=== PATIENT | male | born 1940 | race Caucasian/White ===

== ENCOUNTER 2018-03-21 00:22 | Emergency (ER) | payer MEDICARE, OTHER ==
[~2018-03-21] VITALS: Ht 172.7 cm; Wt 74.8 kg
[~2018-03-21 00:22] MED LIST: ALEN70 PO; ANTACID OTC PO; ASCO500 PO; ASPI81CH; ATOR10 PO; Advil200 M1 PO; Antivert25 MG PO; CALCIUM CITRATE PO; CEPH500 PO; CHOL10002 PO; CLARITIN10 MG PO; CLIN300 PO; CLOB.05TC TOP; CLOB.05TO TP; CYAN100 PO; CYAN1000 PO; Calcium + Vita1 EACH PO; DIAZ5 PO; DIPH50 PO; DOCU100 PO; ERGO50000 PO; FINA5 PO; FISH1000 PO; Flovent Diskus50 MCG IH; HYDACE5 PO; IBUP400 PO; INSUASPI; INSUASPI SC; INSUASPI SUBQ; IRON PO; LAVAP17G PO; LORA10 PO; LORA10ER PO; MAGOXI400 PO; MORP15ER PO; MSM; MULVITMIND PO; MULVITMINF PO; OMEPRAZOLE MAGN20 MG PO; RAMI2.5 PO; SUPER B COMPLEX; TAMS.4ER PO; TOCO400 PO; VITAMIN E400 UNI1 PO; ZINC; ZINC15 PO
[2018-03-21 01:47] LABS: Source, Urine Clean Catch
[2018-03-21 01:52] LABS: Bilirubin, Urine Neg (Neg); Blood, Urine 5+ (Neg); Glucose Qualitative, Urine Neg (Neg); Ketones, Urine Neg (Neg); Leukocyte Esterase, Urine Neg (Neg); Nitrite, Urine Neg (Neg); Protein, Urine 4+ (Neg); Specific Gravity, Urine 1.015 (1.003-1.022); Urobilinogen, Urine NORM (Normal)
[2018-03-21 02:00] LABS: Appearance, Urine Bloody (Clear); Color, Urine Red (P-Yellow)
[2018-03-21 02:08] LABS: Bacteria Not Seen /hpf; Red Blood Cells, Urine TNTC /hpf (0-2); Squamous Epithelial Cells Rare /hpf (Few); White Blood Cells, Urine Rare /hpf (0-5)
[2018-03-21 02:34] LABS: BASOPHILS ABSOLUTE AUTO 0.05 K/mm3 (0.00-0.23); BASOPHILS PERCENT AUTO 1 % (0-2); EOSINOPHILS ABSOLUTE AUTO 0.24 K/mm3 (0.00-0.68); EOSINOPHILS PERCENT AUTO 4 % (0-6); Hematocrit 31.8 % (37.0-53.0); Hemoglobin 10.1 g/dL (13.5-17.5); IMMATURE GRAN ABSOLUTE AUTO 0.01 K/mm3 (0.00-0.10); IMMATURE GRAN PERCENT AUTO 0 % (0-1); LYMPHOCYTES ABSOLUTE AUTO 1.11 K/mm3 (0.84-5.20); LYMPHOCYTES PERCENT AUTO 19 % (21-46); MONOCYTES ABSOLUTE AUTO 0.72 K/mm3 (0.16-1.47); MONOCYTES PERCENT AUTO 13 % (4-13); Mean Corpuscular HGB 30.6 pg (26.0-34.0); Mean Corpuscular HGB Conc 31.8 g/dL (31.5-36.5); Mean Corpuscular Volume 96 fL (80-100); Mean Platelet Volume 11.7 fL (9.1-12.4); NEUTROPHILS PERCENT AUTO 63 % (41-73); Platelet Count 231 K/mm3 (150-400); RDW Coefficient Variation 14.1 % (11.7-14.2); RDW Standard Deviation 49.2 fL (35.1-46.3); White Blood Cell Count 5.73 K/mm3 (4.00-11.30)
[2018-03-21 02:45] LABS: Calcium, Ionized (POC) 1.14 mmol/L (1.10-1.46); Chloride (POC) 95 mmol/L (98-108); Creatinine (POC) 0.8 mg/dL (0.8-1.3); Glucose (ISTAT POC) 231 mg/dL (70-99); Hemoglobin (POC) 10.5 g/dL (13.5-17.5); Sodium (POC) 132 mmol/L (135-148); Total CO2 (POC) 25 mmol/L (21-32)
== END 2018-03-21 03:09 | disposition home or self-care (01) ==
LOC: ER 00:22
PROVIDERS: Emergency Medicine
DX: R31.9 Hematuria, unspecified (principal); Z88.8 Allergy status to other drugs, medicaments and biological substances; Z79.899 Other long term (current) drug therapy; Z79.4 Long term (current) use of insulin; E11.9 Type 2 diabetes mellitus without complications; I10 Essential (primary) hypertension; Z87.891 Personal history of nicotine dependence
CPT/HCPCS: 36415; 80047; 81001; 82947; 85014; 85025; 93005; 93010; 99283-25

== ENCOUNTER 2018-12-25 15:10 | Inpatient (IN) | payer MEDICARE, OTHER ==
[~2018-12-25] VITALS: Ht 177.8 cm; Wt 81.8 kg
[2018-12-25 15:55] LABS: BASOPHILS ABSOLUTE AUTO 0.04 K/mm3 (0.00-0.23); BASOPHILS PERCENT AUTO 0 % (0-2); EOSINOPHILS PERCENT AUTO 0 % (0-6); Hematocrit 33.8 % (37.0-53.0); Hemoglobin 11.2 g/dL (13.5-17.5); IMMATURE GRAN ABSOLUTE AUTO 0.11 K/mm3 (0.00-0.10); IMMATURE GRAN PERCENT AUTO 1 % (0-1); LYMPHOCYTES ABSOLUTE AUTO 0.33 K/mm3 (0.84-5.20); LYMPHOCYTES PERCENT AUTO 2 % (21-46); MONOCYTES ABSOLUTE AUTO 1.58 K/mm3 (0.16-1.47); MONOCYTES PERCENT AUTO 10 % (4-13); Mean Corpuscular HGB 30.4 pg (26.0-34.0); Mean Corpuscular HGB Conc 33.1 g/dL (31.5-36.5); Mean Corpuscular Volume 92 fL (80-100); Mean Platelet Volume 10.4 fL (9.1-12.4); NEUTROPHILS ABSOLUTE AUTO 13.87 K/mm3 (1.96-9.15); NEUTROPHILS PERCENT AUTO 87 % (41-73); Platelet Count 228 K/mm3 (150-400); RDW Coefficient Variation 13.3 % (11.7-14.2); RDW Standard Deviation 45.6 fL (35.1-46.3); Red Blood Cell Count 3.69 M/mm3 (4.30-5.90); White Blood Cell Count 15.93 K/mm3 (4.00-11.30)
[2018-12-25 16:11] LABS: Bun/Creatinine Ratio 18.8 (12.0-20.0); Calcium, Blood 8.3 mg/dL (8.5-10.1); Creatinine, Blood 1.28 mg/dL (0.60-1.20); Potassium, Blood 3.8 mmol/L (3.5-5.5)
[2018-12-25 16:21] LABS: Troponin I 6.33 ng/mL (0.000-0.040)
[2018-12-25] MEDS ORDERED: Ramipril10 MG PO (17:26)
[2018-12-25] MEDS ORDERED: TAMS.4ER PO (17:26)
[2018-12-25] MEDS ORDERED: NOVOLOG FL100 UNIT/1 SC (17:26)
[2018-12-25] MEDS ORDERED: POTA10T PO (17:27)
[2018-12-25] MEDS ORDERED: FUROSEMIDE20 MG PO (17:27)
[2018-12-25] MEDS ORDERED: FINA5 PO (17:27)
[2018-12-25 17:37] LABS: International Normalized Ratio 1.22; Prothrombin Time Results 12.7 Sec (9.7-11.5)
--- NOTE | 2018-12-25 19:10 | NUR ---
CBG 166; PATIENT FINDS STAFF IN ANOTHER ROOM DOING BEDSIDE REPORT TO SHOW HOME CBG METER READING OF 166; PATIENT HAS PAIN PUMP; NO CBG ORDERS.
[2018-12-25] MEDS ORDERED: DIAZ5 PO (20:28)
[2018-12-25 22:46] LABS: Troponin I 6.58 ng/mL (0.000-0.040)
--- NOTE | 2018-12-25 23:12 | NUR ---
ASSUMED CARE OF PATIENT AT APPROXIMATELY 1900 WHEN PATIENT ARRIVED TO UNIT VIA STRETCHER FROM ED. MAX TRANSFER FROM ED TO PCU STRETCHER; PATIENT HAS SCOLOSIS AND WEAK; LEANS BACK WHEN UP. PATIENT ALERT AND ORIENTED TO SELF, EVENT AND FAMILY; ABLE TO READ DATE OFF WHITE BOARD; CONFUSED AT TIMES. PATIENT ARRIVED TO UNIT WITH ATTENDS AND TWO PAIRS OF PANTS ON; ATTENDS SOAKED FROM URINE. PATIENT DENIES CP/PRESSURE, NUMBNESS, TINGLING, DIZZINESS AND NAUSEA. WAS BEDSIDE WITH PATIENT DURING TRANSFER; WALKS INTO ANOTHER PATIENT'S ROOM TO REPORT THAT PATIENT TOOK HIS BLOOD SUGAR WITH HOME CBG MACHINE; READING OF 166; INSULIN PUMP. PATIENT UNABLE TO TELL WHEN HE NEEDS TO URINATE. ABRASION ON LEFT ELBOW; RECENT FALL AT HOME. ADMISSION COMPLETE. S/S PLACED. BLOOD CULTURES DRAW. HEPARIN GTT; TROPONIN CRITICALLY HIGH. PATIENT CURRENTLY RESTING IN BED; CALL LIGHT IN REACH; BED IN LOWEST POSISTION; BED ALARM ON; WILL CONTINUE TO MONITOR AND ASSESS UNTIL END OF SHIFT.
--- NOTE | 2018-12-25 23:59 | NUR ---
TEMP OF 103; CALLED DR. HAGEN TO REPORT TEMPERATURE BUT NO PRN MEDICATIONS FOR FEVER; ORDERS RECIEVED.
[2018-12-26 03:51] LABS: Hematocrit 31.5 % (37.0-53.0); Hemoglobin 10.4 g/dL (13.5-17.5); Mean Corpuscular HGB 30.5 pg (26.0-34.0); Mean Corpuscular Volume 92 fL (80-100); Mean Platelet Volume 10.5 fL (9.1-12.4); Platelet Count 202 K/mm3 (150-400); RDW Coefficient Variation 13.6 % (11.7-14.2); RDW Standard Deviation 45.9 fL (35.1-46.3); Red Blood Cell Count 3.41 M/mm3 (4.30-5.90); White Blood Cell Count 16.34 K/mm3 (4.00-11.30)
[2018-12-26 04:18] LABS: Alanine Aminotransfer (ALT/SGP 21 U/L (12-78); Albumin, Blood 2.3 g/dL (3.4-5.0); Albumin/Globulin Ratio 0.7 (0.8-1.8); Alk Phos 69 U/L (50-136); Anion Gap 11 mmol/L (6-16); Aspartate Aminotrans (AST/SGOT 38 U/L (12-37); Bilirubin, Total 0.7 mg/dL (0.1-1.0); Blood Urea Nitrogen 27 mg/dL (8-24); CO2, Blood 22 mmol/L (21-32); Calcium, Blood 7.6 mg/dL (8.5-10.1); Chloride, Blood 101 mmol/L (98-108); Globulin, Blood 3.2 g/dL (2.2-4.0); Glomerular Filtration Rate 48 (60-); Glucose, Blood 207 mg/dL (70-99); Magnesium, Blood 1.6 mg/dL (1.6-2.4); Phosphorus, Blood 2.7 mg/dL (2.5-4.9); Potassium, Blood 3.7 mmol/L (3.5-5.5); Sodium, Blood 134 mmol/L (136-145); Total Protein, Blood 5.5 g/dL (6.4-8.2)
[2018-12-26 04:25] LABS: BAND PERCENT MAN 21 % (0-8); BASOPHILS PERCENT MAN 0 % (0-2); EOSINOPHILS PERCENT MAN 0 % (0-6); LYMPHOCYTES ABSOLUTE MAN 0.49 K/mm3 (0.84-5.20); LYMPHOCYTES PERCENT MAN 3 % (21-46); MONOCYTES ABSOLUTE MAN 0.49 K/mm3 (0.16-1.47); MONOCYTES PERCENT MAN 3 % (4-13); NEUTROPHILS ABSOLUTE MAN 15.35 K/mm3 (1.96-9.15); SEG NEUTROPHILS PERCENT MAN 73 % (41-73); TOTAL CELLS COUNTED 100
[2018-12-26 04:26] LABS: Thyroid Stimulating Hormone 0.708 uIU/mL (0.360-4.800)
[2018-12-26 04:32] LABS: C-REACTIVE PROTEIN, EXT RANGE >19.000 mg/dL (0.000-0.300)
--- NOTE | 2018-12-26 05:16 | NUR ---
PATIENT MORE ALERT AND ORIENTED THIS MORNING; TALKING WITH STAFF AND ASKING QUESTIONS. PATIENT SLEPT ABOUT EIGHT HOURS LAST NIGHT. TROPONIN TRENDING DOWN; HEPARIN GTT INCREASED PER ORDER. PATIENT TOOK ONLY CBG THIS AM AND REPORTS 219. WILL CONTINUE TO MONITOR AND ASSESS UNTIL END OF SHIFT.
[2018-12-26 07:21] LABS: Source, Urine Clean Catch
[2018-12-26 07:23] LABS: Appearance, Urine Hazy (Clear); Bilirubin, Urine Neg (Neg); Blood, Urine 4+ (Neg); Color, Urine Yellow (P-Yellow); Glucose Qualitative, Urine 1+ (Neg); Ketones, Urine 3+ (Neg); Leukocyte Esterase, Urine 3+ (Neg); Nitrite, Urine Pos (Neg); Protein, Urine 3+ (Neg); Urobilinogen, Urine NORM (Normal)
[2018-12-26 07:32] LABS: White Blood Cells, Urine 50-100 /hpf (0-5)
[2018-12-26 07:33] LABS: Bacteria Many /hpf; Squamous Epithelial Cells Rare /hpf (Few)
[2018-12-26 17:27] LABS: Glucose, Blood 540 mg/dL (70-99)
--- NOTE | 2018-12-26 18:09 | NUR ---
NOTIFIED DR VILLALTA OF BLOOD GLUCOSE OF 540, NEW ORDERS TO CONTINUE WITH INSULING PUMP SLIDING SCALE AND INCREASE BASIL RATE BY 0.1 UNITS/HR. THIS RN AT BEDSIDE, PT APPEARS CONFUSED ON HOW TO USE INSULIN PUMP, APPEARS TO BE CYCLING THROUGH THE PAGES, AND IS UNABLE TO EXPLAIN WHAT SECTIONS HE IS ON AND HOW TO USE PUMP. WHEN THIS RN AND BIN RN ASKED TO SEE PUMP, PT DENIES ACCESS. PT STATES HE DOES THIS HIMSELF. NOTIFED DR VILLALTA, NEW ORDERS TO CONTINUE INSULIN PUMP BASIL RATE IS, INSTRUCT THE PATIENT TO NOT USE THE INSULIN PUMP SLIDING SCALE AND TO START HUMALOG ACHS AT MEDIUM SLIDING SCALE. EDUCATED AND INSTRUCTED PT NOT TO PROGRAM THE PUMP FOR SLIDING SCALE. WILL ADMINISTER INSULIN PER ORDERS. WILL CONTINUE TO MONITOR.
--- NOTE | 2018-12-26 18:14 | NUR ---
SHIFT SUMMARY PT A&Ox2, CONFUSED AT TIMES. PT RESTING IN BED, ASSIST WITH REPOSITIONING. PT REPORTS PAIN IN BACK/BUTTOM AND WAIST, MEDICATED PER EMAR. PT DENIES SON, CHEST PAIN, NUMB/TINGLING AND [place] DURING SHIFT. PT RECEIVING HEPARIN GTT, TITRATED PER ORDERS. PT RECEIVING IV ANTIBIOTICS. PT HAS INSULIN PUMP, CBG PATCH NOT WORKING, NEW ORDERS FOR BLOOD GLUCOSE ACHS PER DR VILLALTA. LUNCH CBG 434, NOTIFIED DR VILLALTA, NO NEW ORDERS. DINNER CBG LAB CHECKED AT 540, NOTFIED, SEE PREVIOUS NOTE, RN TO START PROVIDING INSULIN PER ORDERS. VSS. NO OTHER ACUTE CHAGNES NOTED DURING SHIFT. WILL CONTINUE TO MONTIOR UNTIL REPORT GIVEN TO ONCOMING RN.
[2018-12-26 21:20] LABS: Glucose, Blood 558 mg/dL (70-99)
--- NOTE | 2018-12-26 21:59 | NUR ---
ASSUMED CARE OF PATIENT AT APPROXIMATELY 1900 FROM NIRMAL Smith RN. PATIENT HAS SCOLOSIS AND WEAK; LEANS BACK WHEN UP; HAS BEEN ON BEDREST. PATIENT ALERT AND ORIENTED TO SELF, EVENT AND FAMILY; ABLE TO READ DATE OFF WHITE BOARD; CONFUSED OFF AND ON. PATIENT EDUCATED NOT TO USE INSULIN PUMP; DOCOTOR ORDERED SC INSULIN AC/HS. CBG TONIGHT WAS 558; CALLED DR. POSADAS AFTER GIVING 12UNITS PER MED S/S; ORDERS RECIEVED FOR 6 ADDITIONAL UNITS AND CBG 2 HOURS AFTER. PATIENT FEBRILE AT START OF SHIFT; MEDICATED PER EMAR; FEVER TRENDING DOWN. INCONTINENT AT TIMES. PATIENT DENIES CP/PRESSURE, NUMBNESS, TINGLING, DIZZINESS AND NAUSEA. CALLED FOR UPDATE; PATIENT GAVE VERBAL CONSENT FOR THIS RN TO TALK TO HIS MIKE. PATIENT HAS INSULIN PUMP. ABRASION ON LEFT ELBOW; RECENT FALL AT HOME. NSR ON TELE; OXYGEN SATURATION ABOVE 90% ON ROOM AIR. HEPARIN GTT. PATIENT CURRENTLY RESTING IN BED; CALL LIGHT IN REACH; BED IN LOWEST POSISTION; BED ALARM ON; WILL CONTINUE TO MONITOR AND ASSESS UNTIL END OF SHIFT.
--- NOTE | 2018-12-27 00:17 | NUR ---
CBG 462; CALLED DR. HAGEN TO REPORT CBG ABOVE 400; ORDERS FOR CBG AT 0300.
[2018-12-27 04:42] LABS: BASOPHILS ABSOLUTE AUTO 0.03 K/mm3 (0.00-0.23); BASOPHILS PERCENT AUTO 0 % (0-2); Hemoglobin 10.7 g/dL (13.5-17.5); LYMPHOCYTES ABSOLUTE AUTO 0.23 K/mm3 (0.84-5.20); LYMPHOCYTES PERCENT AUTO 1 % (21-46); MONOCYTES ABSOLUTE AUTO 1.09 K/mm3 (0.16-1.47); MONOCYTES PERCENT AUTO 6 % (4-13); Mean Corpuscular HGB 30.2 pg (26.0-34.0); Mean Corpuscular HGB Conc 33.4 g/dL (31.5-36.5); Mean Corpuscular Volume 90 fL (80-100); Mean Platelet Volume 11.3 fL (9.1-12.4); Platelet Count 193 K/mm3 (150-400); RDW Coefficient Variation 13.4 % (11.7-14.2); Red Blood Cell Count 3.54 M/mm3 (4.30-5.90); White Blood Cell Count 17.13 K/mm3 (4.00-11.30)
[2018-12-27 04:43] LABS: EOSINOPHILS PERCENT AUTO 0 % (0-6); IMMATURE GRAN ABSOLUTE AUTO 0.11 K/mm3 (0.00-0.10); IMMATURE GRAN PERCENT AUTO 1 % (0-1); NEUTROPHILS ABSOLUTE AUTO 15.67 K/mm3 (1.96-9.15); NEUTROPHILS PERCENT AUTO 92 % (41-73)
[2018-12-27 05:09] LABS: Albumin, Blood 2.1 g/dL (3.4-5.0); Albumin/Globulin Ratio 0.6 (0.8-1.8); Bilirubin, Total 0.5 mg/dL (0.1-1.0); Bun/Creatinine Ratio 24.9 (12.0-20.0); Calcium, Blood 7.8 mg/dL (8.5-10.1); Creatinine, Blood 1.77 mg/dL (0.60-1.20); Globulin, Blood 3.5 g/dL (2.2-4.0); Potassium, Blood 4.1 mmol/L (3.5-5.5); Total Protein, Blood 5.6 g/dL (6.4-8.2)
--- NOTE | 2018-12-27 06:42 | NUR ---
PATIENT SLEPT ABOUT SIX HOURS LAST NIGHT. CBG CAME BACK OVER 500; CALLED DR. HAGEN; 12 UNITS HUMALOG; NPO; RECHECK CBG AT 0745. FEBRILE; TYLENOL GIVEN; GOOD RESULTS; OTHER VSS. WILL CONTINUE TO MONITOR AND ASSESS UNTIL END OF SHIFT.
[2018-12-27 08:01] LABS: Glucose, Blood 518 mg/dL (70-99)
--- NOTE | 2018-12-27 11:02 | NUR ---
ECHOCARDIOGRAM COMPLETED
--- NOTE | 2018-12-27 12:53 | NUR ---
UPDATE CALLED DR. PONCE ABOUT CBG OF 479. NEW ORDERS FOR 5 UNITS HUMALOG NOW. WILL CONTINUE TO MONITOR CLOSELY.
--- NOTE | 2018-12-27 12:55 | NUR ---
UPDATE CALLED DR. PONCE ABOUT CBG OF 518. NEW ORDERS PROVIDED.
[2018-12-27 15:32] LABS: Bun/Creatinine Ratio 24.4 (12.0-20.0); Calcium, Blood 7.8 mg/dL (8.5-10.1); Creatinine, Blood 1.68 mg/dL (0.60-1.20); Potassium, Blood 3.6 mmol/L (3.5-5.5)
--- NOTE | 2018-12-27 17:25 | NUR ---
SHIFT SUMMARY PT ALERT TO SELF, , AND FOLLOWING DIRECTIONS. PT FORGETS WHERE HE IS AND WHY HE CAME IN. PT SLOW TO RESPOND AND DOES NOT ALWAYS ANSWER QUESTIONS APPROPRIATELY. VS STABLE. HR NSR. PT COMPLAINED OF PAIN IN HIS BACK THAT WAS RELEIVED WITH MEDICATION ADMINISTRATION. PT REPOSITIONED Q2H. PT WEAK IN ALL EXTREMITIES. CBG HAVE IMPROVED THIS EVENING. PT HAS HAD POOR APPETITE. WILL CONTINUE TO MONITOR AND REPORT TO ONCOMING RN. CALL LIGHT IN REACH.
--- NOTE | 2018-12-27 21:30 | NUR ---
UPDATE CALLED AND WANTED TO SPEAK WITH RN. PATIENT GAVE VERBAL CONSENT FOR RN TO SPEAK WITH ON THE PHONE. VERY UPSET ABOUT PATIENT'S DIAGNOSIS AND CURRENT PLAN OF TREATMENT. HAD SEVERAL QUESTIONS AND RN PROVIDED ANSWERS. KEPT ASKING THE SAME QUESTIONS OVER AND OVER AND STATING THAT SHE WAS GETTING FRUSTRATED THAT NO ONE WOULD GIVE HER ANSWERS EVEN THOUGH RN WAS PROVIDING ANSWERS TO THE WIFES QUESTION DURING THAT SAME PHONE CALL. DID NOT APPEAR TO LISTEN TO ANSWERS AND SHE KEPT TALKING OVER RN AND CONTINUED TO ASK THE SAME QUESTIONS OVER AND OVER EVEN AFTER THEY HAD BEEN ANSWERED MANY TIMES. AFTER APPROX 15 MINUTES CONTINUED TO BE VERY UPSET. CHARGE NURSE MANOLO MARTINEZ TOOK OVER SPEAKING WITH AND CONTINUED TO PROVIDE THE ANSWERS TO THE WIFES QUESTIONS WHICH SHE CONTINUED TO ASK OVER AND OVER AGAIN. 'S CALL WAS THEN SENT TO THE THE NURSING MIXER DRIVER CRISELDA MURILLO. WHO ALSO SPOKE WITH . CONTINUED TO APPEAR TO HAVE THE SAME QUESTIONS EVEN THOUGH THEY HAD BEEN ANSWERED MANY TIMES BY SEVERAL DIFFERENT STAFF MEMBERS. NURSING MIXER DRIVER CHIDI SAID THAT SHE OR THE SECURITY OFFICE WOULD TAKE ANY FURTHER CALLS FROM TO ALLOW STAFF TO PROVIDE PATIENT CARE.
--- NOTE | 2018-12-28 04:37 | NUR ---
UPDATE DR HAGEN NOTIFIED THAT PATIENT HAS NOT VOIDED YET TONIGHT AND THAT THE BLADDER SCAN RESULTS WERE APPROX 450 ML'S. PATIENT STATES HE DOES NOT FEEL HE NEEDS TO VOID AT THIS TIME AND DENIES ANY ABD PAIN AT THIS TIME. AN ORDER TO STRAIGHT CATH FOR BLADDER SCAN OF GREATER THAN 700 ML'S WAS OBTAINED. WILL CONTINUE TO MONITOR.
--- NOTE | 2018-12-28 07:58 | NUR ---
SHIFT SUMMARY PATIENT PLEASENT AND COOPERATIVE THROUGHOUT THE NIGHT. PATIENT KEPT ASKING WHAT TIME IT WAS OR WHAT DAY IT WAS IN, "THE OUTSIDE WORLD." SOMETIMES PATIENT WOULD ASK WHAT TIME IT WAS AND HE WOULD THEN ASK, "IS IT THE SAME TIME IN THE OUTSIDE WORLD?" PATIENT APPEARED TO NAP ON AND OFF THROUGHOUT THE NIGHT. PATIENT TURNED Q2H THROUGHOUT THE NIGHT AND UPON REQUEST. PATIENT HAD A LARGE INCONTENENT VOID THIS AM. HEPARIN GTT RUNNING PER ORDERS. IV ABX GIVEN PER ORDERS. PATIENT CURRENTLY RESTING IN BED. REPORT GIVEN TO ONCOMING RN.
[2018-12-28 09:01] LABS: BASOPHILS ABSOLUTE AUTO 0.05 K/mm3 (0.00-0.23); BASOPHILS PERCENT AUTO 0 % (0-2); EOSINOPHILS ABSOLUTE AUTO 0.06 K/mm3 (0.00-0.68); EOSINOPHILS PERCENT AUTO 0 % (0-6); Hematocrit 31.6 % (37.0-53.0); Hemoglobin 10.5 g/dL (13.5-17.5); IMMATURE GRAN ABSOLUTE AUTO 0.12 K/mm3 (0.00-0.10); IMMATURE GRAN PERCENT AUTO 1 % (0-1); LYMPHOCYTES PERCENT AUTO 3 % (21-46); MONOCYTES ABSOLUTE AUTO 1.49 K/mm3 (0.16-1.47); MONOCYTES PERCENT AUTO 8 % (4-13); Mean Corpuscular HGB 29.8 pg (26.0-34.0); Mean Corpuscular HGB Conc 33.2 g/dL (31.5-36.5); Mean Corpuscular Volume 90 fL (80-100); Mean Platelet Volume 11.4 fL (9.1-12.4); NEUTROPHILS ABSOLUTE AUTO 15.45 K/mm3 (1.96-9.15); NEUTROPHILS PERCENT AUTO 88 % (41-73); Platelet Count 184 K/mm3 (150-400); RDW Standard Deviation 46.1 fL (35.1-46.3); Red Blood Cell Count 3.52 M/mm3 (4.30-5.90); White Blood Cell Count 17.67 K/mm3 (4.00-11.30)
[2018-12-28 09:21] LABS: Albumin, Blood 1.8 g/dL (3.4-5.0); Albumin/Globulin Ratio 0.5 (0.8-1.8); Bilirubin, Total 0.2 mg/dL (0.1-1.0); Calcium, Blood 7.6 mg/dL (8.5-10.1); Creatinine, Blood 1.84 mg/dL (0.60-1.20); Globulin, Blood 3.6 g/dL (2.2-4.0); Potassium, Blood 3.8 mmol/L (3.5-5.5); Total Protein, Blood 5.4 g/dL (6.4-8.2)
--- NOTE | 2018-12-28 14:22 | NUR ---
PT WORKING WITH PHYSICAL THERAPY. THIS RN CALLED IN TO ROOM. PER PHYSICAL THERAPY PT FELL BACK IN BED AND STARTED TO VOMIT. PT ALERT. VS STABLE. PER TELEMETRY PT HAS ONE RUN OF VTACH SEE TELEMETRY PRINT OUT IN FRONT OF CHART. DR. JIMENEZ CALLED AND NOTIFIED OF CHANGES. DR. JIMENEZ LOOKS AT TELEMETRY STRIPS AND NEW ORDERS. VS TAKEN AND STABLE. PT DENIES ANY CHEST PAIN. WILL CONTINUE TO MONITOR CLOSELY.
--- NOTE | 2018-12-28 17:50 | NUR ---
SHIFT SUMMARY PT ALERT AND ORIENTED. PT SLOW TO RESPOND. VS STABLE. HR NSR AT THIS TIME. CBG HAVE BEEN IMPROVED THIS SHIFT. PT COMPLAINED OF DISCOMFORT IN HIS NECK THAT WAS RELIEVED WITH REPOSITIONING. PT REPOSITIONED Q2H. PT HAS BEEN INCONTINENT OF URINE. WILL CONTINUE TO MONITOR AND REPORT TO ONCOMING RN. CALL LIGHT IN REACH.
--- NOTE | 2018-12-29 00:05 | NUR ---
CBG SPOT CHECK / PT ANXIOUS PT ANXIOUS ABOUT BLOOD SUGAR MONITORING IN THE HOSPITAL STATING "I CHECK MY BLOOD SUGAR ABOUT 12-15 TIMES A DAY." PT CONCERNED BLOOD SUGAR IS NOT BEING CHECKED ENOUGH. CBG MONITORING ORDERS/PROCESS REVIEWED W/ PT & ASSURANCE OF AVAILABLE SPOT CHECKS IF PT FEELS SYMPTOMATIC. PT DENIES SYMPTOMS AT THIS TIME, BUT IS ANXIOUS NOT KNOWING WHAT CBG MIGHT BE. CBG CHECK DONE W/ RESULT OF 105. PT NOW WORRIED CBG WILL CONTINUE TO GET LOWER. PT EDUCATED TO NOTIFY STAFF IF ONSET OF SYMPTOMS OCCUR. WILL CONTINUE TO MONITOR AND PROVIDE CARE.
[2018-12-29 04:09] LABS: BASOPHILS ABSOLUTE AUTO 0.02 K/mm3 (0.00-0.23); BASOPHILS PERCENT AUTO 0 % (0-2); EOSINOPHILS PERCENT AUTO 1 % (0-6); Hematocrit 28.6 % (37.0-53.0); Hemoglobin 9.8 g/dL (13.5-17.5); IMMATURE GRAN PERCENT AUTO 1 % (0-1); LYMPHOCYTES ABSOLUTE AUTO 0.48 K/mm3 (0.84-5.20); LYMPHOCYTES PERCENT AUTO 4 % (21-46); MONOCYTES ABSOLUTE AUTO 1.29 K/mm3 (0.16-1.47); MONOCYTES PERCENT AUTO 10 % (4-13); Mean Corpuscular HGB 29.9 pg (26.0-34.0); Mean Corpuscular HGB Conc 34.3 g/dL (31.5-36.5); Mean Platelet Volume 11.2 fL (9.1-12.4); NEUTROPHILS ABSOLUTE AUTO 11.13 K/mm3 (1.96-9.15); NEUTROPHILS PERCENT AUTO 85 % (41-73); Platelet Count 218 K/mm3 (150-400); RDW Coefficient Variation 13.8 % (11.7-14.2); RDW Standard Deviation 43.8 fL (35.1-46.3); Red Blood Cell Count 3.28 M/mm3 (4.30-5.90); White Blood Cell Count 13.12 K/mm3 (4.00-11.30)
[2018-12-29 04:10] LABS: Mean Corpuscular Volume 87 fL (80-100)
[2018-12-29 04:31] LABS: Bun/Creatinine Ratio 27.2 (12.0-20.0); Calcium, Blood 7.7 mg/dL (8.5-10.1); Creatinine, Blood 1.62 mg/dL (0.60-1.20); Potassium, Blood 3.8 mmol/L (3.5-5.5)
--- NOTE | 2018-12-29 05:15 | NUR ---
CBG TREATMENT CALL TO MD HAGEN @ APPROX 0500 THIS AM TO REPORT CBG 78 THIS AM WHILE PT NPO AWAITING PROCEDURE @ APPROX 0730 TODAY. INSTRUCTIONS FROM MD HAGEN TO GIVE 1 AMP D50, SEE EMAR, AND RECHECK CBG Q1H NEEDED. PT ASYMPTOMATIC. WILL CONTINUE TO MONITOR AND PROVIDE CARE.
--- NOTE | 2018-12-29 06:04 | NUR ---
SHIFT SUMMARY PT A&O TO SELF AND FOLLOWING INSTRUCTIONS. PT SLOW TO RESPOND, DOES NOT ANSWER ALL Q'S AND ANSWERS SOME Q'S INCOMPLETELY. PT FORGETFUL, NEEDING INFORMATION REPEATED. PT CBG W/ DOWNWARD TREND THIS SHIFT, NPO SINCE MIDNIGHT FOR PROCEDURE THIS AM. PT ASYMPTOMATIC, CBG 78 THIS AM, GIVEN 1 AMP D50 THIS AM PER MD ORDERS, W/ F/U CBG OF 148 THIS AM. PT INCONTINENT, WEARING ATTENDS. PT STATES BEING AWARE OF WET ATTENDS, BUT DOES NOT NOTIFY STAFF WHEN EPISODES OF INCONTINENCE OCCUR. PT SELF-REMOVAL OF PIV THIS AM W/ NO ANSWER TO HOW OR WHY IT WAS REMOVED. PT REPEATITIVELY SAYING "I'M READY TO GO" W/OUT EXPLANATION OF WHERE DESPITE MULT STAFF ATTEMPTS FOR PT ELABORATION. PT VERY STIFF AND UNABLE TO ASSIST W/ REPOSITIONING UPON CARE ASSUMPTION. PT NOW PROVIDING MINIMAL ASSISTANCE W/ Q2H REPOSITIONING BY 2 STAFF MEMBERS. PT IN BED W/ CALL LIGHT IN REACH. WILL CONTINUE TO MONITOR AND PROVIDE CARE UNTIL REPORT OFF TO DAY SHIFT RN.
--- NOTE | 2018-12-29 08:05 | NUR ---
DR CARBONE AND DR JIMENEZ WERE IN ROOM AT 0730 FOR LIVAN. PT TOLERATED LIVAN WELL.
--- NOTE | 2018-12-29 08:55 | NUR ---
LIVAN COMPLETE. PT RECOVERED LIVAN COMPLETE AT 0750. PT VITALS STABLE. PT TOTRATED OF O2. SATING IN 90S ON RA. PT AWAKE & ALERT. PT SWALLOWING WELL. CLEAR LIQUID DIET STARTED. WILL CONTINUE TO MONITOR.
--- NOTE | 2018-12-29 16:31 | NUR ---
SHIFT SUMMARY PT HAS LIVAN COMPLETED THIS SHIFT. RESTING PORTION OF STRESS TEST TO BE COMPLETED TOMORROW. PT TO BE NPO AFTER BREAKFAST. INJECTION SCHEDULED FOR 1430 & PICTURES AT 1600. INCULIN SLIDING SCALES DECREASED. AC TO AARON. HS TO LSS. NO OTHER CHANGES IN ASSESSMENT AT THIS TIME. VSS. WILL CONTINUE TO MONITOR UNTIL TURNOVER IS COMPLETE.
[2018-12-30 04:28] LABS: BASOPHILS ABSOLUTE AUTO 0.03 K/mm3 (0.00-0.23); BASOPHILS PERCENT AUTO 0 % (0-2); EOSINOPHILS PERCENT AUTO 1 % (0-6); Hematocrit 25.3 % (37.0-53.0); Hemoglobin 8.8 g/dL (13.5-17.5); IMMATURE GRAN ABSOLUTE AUTO 0.07 K/mm3 (0.00-0.10); IMMATURE GRAN PERCENT AUTO 1 % (0-1); LYMPHOCYTES PERCENT AUTO 5 % (21-46); MONOCYTES ABSOLUTE AUTO 0.92 K/mm3 (0.16-1.47); MONOCYTES PERCENT AUTO 10 % (4-13); Mean Corpuscular HGB 29.9 pg (26.0-34.0); Mean Corpuscular HGB Conc 34.8 g/dL (31.5-36.5); Mean Corpuscular Volume 86 fL (80-100); Mean Platelet Volume 10.7 fL (9.1-12.4); NEUTROPHILS PERCENT AUTO 82 % (41-73); Platelet Count 240 K/mm3 (150-400); RDW Coefficient Variation 13.8 % (11.7-14.2); RDW Standard Deviation 43.4 fL (35.1-46.3); Red Blood Cell Count 2.94 M/mm3 (4.30-5.90); White Blood Cell Count 9.22 K/mm3 (4.00-11.30)
[2018-12-30 04:45] LABS: Albumin, Blood 1.7 g/dL (3.4-5.0); Albumin/Globulin Ratio 0.5 (0.8-1.8); Bilirubin, Total 0.3 mg/dL (0.1-1.0); Bun/Creatinine Ratio 24.7 (12.0-20.0); C-REACTIVE PROTEIN, EXT RANGE 13.5 mg/dL (0.000-0.300); Calcium, Blood 7.7 mg/dL (8.5-10.1); Creatinine, Blood 1.54 mg/dL (0.60-1.20); Globulin, Blood 3.1 g/dL (2.2-4.0); Potassium, Blood 3.5 mmol/L (3.5-5.5); Total Protein, Blood 4.8 g/dL (6.4-8.2)
--- NOTE | 2018-12-30 06:30 | NUR ---
SHIFT SUMMARY PT A&O X4, CALM AND COOPERATIVE. VSS. MONITOR SHOWS NSR, HR 60-70'S. SPO2 > 92% ON RA. PT W/ EPISODES OF CONTINENCE AND INCONTINENCE, WEARING ATTENDS AND USING URINAL. CBG STABLE. WILL CONTINUE TO MONITOR AND PROVIDE CARE UNTIL REPORT OFF TO DAY SHIFT RN.
--- NOTE | 2018-12-30 08:00 | NUR ---
REPORT FROM KARLEE ABURTO. ASSUMED PT CARE. PT SITTING UP IN CHAIR WITH BREAKFAST AT THIS TIME. CALL LIGHT IN REACH. T AB ALARM IN PLACE.
--- NOTE | 2018-12-30 09:10 | NUR ---
PT MEDICATED PER EMAR WITH SCHEDULED MEDS. PT SITTING UP IN CHAIR, WATER AND APPLEJUICE PROVIDED.
--- NOTE | 2018-12-30 12:31 | NUR ---
PT SITTING UP IN CHAIR EATING LUNCH. FAMILY AT BEDSIDE.
--- NOTE | 2018-12-30 15:00 | NUR ---
ASSUMED CARE OF PT. ASSUMED CARE OF PT FROM CRISELDA GREGORY. NO QUESTIONS FROM THIS RN NEEDED. PT IN STABLE CONDITION WITH VSS. PT UP IN BED EATING CHEESE & MILK. FIRST PART STRESS TEST COMPLETED. SCANS TO BE COMPLETED AT 1600. PT AMBULATING WELL WITH THERAPY. TELE RUNNING NSR IN 60S. PT AXO BUT FORGETFUL. LUNGS CLEAR. EXTREMETIES WEAK BUT IMPROVING. WILL CONITNUE TO MONITOR.
--- NOTE | 2018-12-30 16:37 | NUR ---
SHIFT SUMMARY PT CHANGED TO MED STATUS NO TELE. TELE REMOVED FROM PT. SCANS COMPLETED FOR 1ST PORTION OF STRESS TEST. PT RESTING IN BED. DENIES NEEDS AT THIS TIME. NO CHANGES IN ASSESSMENT AT THIS TIME. VSS. WILL CONINTUE TO MONITOR UNTIL TURNOVER IS COMPLETE.
--- NOTE | 2018-12-30 18:00 | NUR ---
REPORT GIVEN TO MED NURSE REPORT GIVEN TO MED NURSEMANOLO. NO FURTHER QUESTIONS REQUIRED AT THIS TIME. PT STABLE & VSS. WILL TRANSFER VIA WHEELCHAIR WHEN PT IS FINISHED EATING.
--- NOTE | 2018-12-30 18:17 | NUR ---
PT ARRIVED TO UNIT FROM PCU VIA WHEELCHAIR. PT ORIENTATED TO ROOM. PT NPO AFTER BREAKFAST TOMORROW FOR SECOND PART OF STRESS TEST.
--- NOTE | 2018-12-30 18:37 | NUR ---
PT UPDATED OF TRANSFER. NEW ROOM 355.
--- NOTE | 2018-12-31 04:21 | NUR ---
RESTLESS EVENING, VERBALLY TERSE AND SOMEWHAT OFFENSIVE WHEN ENCOURAGED TO COMPLY WITH SAFETY INSTRUCTIONS. UP TO BR TO VOID SEVERAL TIMES, INCONT A FEW TIMES WELL. LINEN CHANGED. PT ACCIDENTLY VOIDED ON NURSE, THEN AFTER THAT HE BECAME MORE COMPLIANT AND RECEPTIVE TO INSTRUCTIONS. CALL LIGHT IN REACH. BED ALARM ON.
[2018-12-31 05:17] LABS: Bun/Creatinine Ratio 21.7 (12.0-20.0); Calcium, Blood 8.1 mg/dL (8.5-10.1); Creatinine, Blood 1.43 mg/dL (0.60-1.20); Potassium, Blood 3.5 mmol/L (3.5-5.5)
--- NOTE | 2018-12-31 17:29 | NUR ---
PT PLEASANT TODAY. SOMEWHAT DEMANDING. IRRIATABLE. AT BEDSIDE SOME THIS AFT. NPO BETWEEN BREAKFAST AND 230 PM FOR STRESS TEST. ATE. PENDING DINNER SHORTLY. PT DEFINATELY LEANS BACK WHEN UP. IS UNSTEADY. OFTEN DEMANDING TO BE INDEPENDANT. DISCUSSED WITH HIM/ APPEARS TO BRUSH ME OFF. CONTINUE TO REINFORCE SAFETY. BED IN LOW POSITON, CALL LITE IN REACH, BED ALARM ON FOR SAFETY
--- NOTE | 2019-01-01 04:24 | NUR ---
SHIFT SUMMARY ASSUMED CARE OF PATIENT FROM GHASSAN ABURTO @ 1955. VISITED WITH PATIENT. A/O, ABLE TO MAKE NEEDS KNOWN. COOPERATIVE WITH CARE. NO C/O PAIN/DISCOMFORT. STATED DID NOT SLEEP WELL OVERNIGHT. UP AND DOWN TO THE BATHROOM. STATED COLD; GIVEN WARM BLANKET. NO OTHER NEEDS @ THAT TIME. BED IN LOWEST POSITION. CALL LIGHT AND BELONGINGS WITHIN REACH. WCTM. REPORT TO VASILIY ABURTO.
[2019-01-01] MEDS ORDERED: HUMALOG KW200 UNIT/1 SC (10:44)
[2019-01-01] MEDS ORDERED: ACET325 PO (10:47)
[2019-01-01] MEDS ORDERED: LOW DOSE ASPIRI81 MG PO (10:49)
[2019-01-01] MEDS ORDERED: Ceftriaxone2 G2 IV (10:53)
[2019-01-01] MEDS ORDERED: CLOP75 PO (10:54)
[2019-01-01] MEDS ORDERED: LEVFLO500 PO (10:55)
[2019-01-01] MEDS ORDERED: FERSU300 PO (10:55)
[2019-01-01] MEDS ORDERED: METO25ER PO (10:56)
[2019-01-01] MEDS ORDERED: MIRALAX17 GM PO (10:57)
[2019-01-01] MEDS ORDERED: Florastor250 MG PO (10:57)
[2019-01-01] MEDS ORDERED: Prinivil10 MG PO (10:58)
[2019-01-01] MEDS ORDERED: INSULANPEN SC (10:59)
--- NOTE | 2019-01-01 14:00 | NUR ---
DISCHARGE PT DISCHARGED TO [facility], REPORT CALLED TO BON ABURTO. QUESTIONS/CONCERNS ANSWERED.
== END 2019-01-01 13:35 | DRG 280 ==
LOC: ER 15:10 → PCU 16:41 → MEDS 12-30 18:05 → ENPENDDIS 01-01 10:30 → MEDS 01-01 13:35
PROVIDERS: Emergency Medicine; Internal Medicine; ADMIT Hospitalist
PROC: B24BZZ4 Ultrasonography of Heart with Aorta, Transesophageal (ICD-10-PCS; principal; 2018-12-29)
DX: I33.0 Acute and subacute infective endocarditis (principal); I21.4 Non-ST elevation (NSTEMI) myocardial infarction; G92 Toxic encephalopathy; N17.9 Acute kidney failure, unspecified; N39.0 Urinary tract infection, site not specified; E87.1 Hypo-osmolality and hyponatremia; Z85.51 Personal history of malignant neoplasm of bladder; Z87.891 Personal history of nicotine dependence; E10.42 Type 1 diabetes mellitus with diabetic polyneuropathy; E87.5 Hyperkalemia; Z86.73 Personal history of transient ischemic attack (TIA), and cerebral infarction without residual deficits; R32 Unspecified urinary incontinence; I10 Essential (primary) hypertension; N40.0 Benign prostatic hyperplasia without lower urinary tract symptoms; E10.65 Type 1 diabetes mellitus with hyperglycemia; B96.20 Unspecified Escherichia coli [E. coli] as the cause of diseases classified elsewhere; Z96.41 Presence of insulin pump (external) (internal); Z79.82 Long term (current) use of aspirin
CPT/HCPCS: 36415; 71045; 71046; 73070; 76770; 78452; 80048; 80053; 81001; 82010; 82533; 82550; 82947; 83605; 83735; 83880; 84100; 84145; 84300; 84443; 84484; 85025; 85610; 85651; 85730; 86140; 87040; 87077; 87086; 87186; 93005; 93010; 93017; 93306; 93312; 93325; 96361; 96365; 97110; 97116; 97161; 97530; 99285-25; A9270; A9270-GY; A9500; J0456; J0696; J0706; J1644; J1650; J1956; J2704; J2785; J7030; J7050; J7120; J7799

== ENCOUNTER 2019-01-14 00:28 | Day surgery (SDC) | payer MEDICARE, OTHER ==
[~2019-01-14 00:28] MED LIST changes: +ACET325 PO; +CLOP75 PO; +Ceftriaxone2 G2 IV; +FERSU300 PO; +FUROSEMIDE20 MG PO; +Florastor250 MG PO; +HUMALOG KW200 UNIT/1 SC; +INSULANPEN SC; +LEVFLO500 PO; +LOW DOSE ASPIRI81 MG PO; +METO25ER PO; +MIRALAX17 GM PO; +NOVOLOG FL100 UNIT/1 SC; +OMNIPOD DASH P1 EACH; +POTA10T PO; +Prinivil10 MG PO; +Ramipril10 MG PO
== END 2019-01-14 15:47 | disposition home or self-care (01) ==
LOC: ATC 00:28
DX: I33.0 Acute and subacute infective endocarditis (principal); B96.20 Unspecified Escherichia coli [E. coli] as the cause of diseases classified elsewhere; I21.4 Non-ST elevation (NSTEMI) myocardial infarction; E11.42 Type 2 diabetes mellitus with diabetic polyneuropathy; E78.5 Hyperlipidemia, unspecified; E11.319 Type 2 diabetes mellitus with unspecified diabetic retinopathy without macular edema; D50.9 Iron deficiency anemia, unspecified; I10 Essential (primary) hypertension; M19.049 Primary osteoarthritis, unspecified hand; N40.0 Benign prostatic hyperplasia without lower urinary tract symptoms; Z86.73 Personal history of transient ischemic attack (TIA), and cerebral infarction without residual deficits; Z79.82 Long term (current) use of aspirin; Z79.02 Long term (current) use of antithrombotics/antiplatelets; Z79.4 Long term (current) use of insulin; Z96.41 Presence of insulin pump (external) (internal); Z88.8 Allergy status to other drugs, medicaments and biological substances; Z79.899 Other long term (current) drug therapy
CPT/HCPCS: 96365; J0696

== ENCOUNTER 2019-01-15 11:09 | Day surgery (SDC) | payer MEDICARE, OTHER | END 2019-01-15 12:10 | disposition home or self-care (01) | LOC: ATC 11:09 | DX: I33.0 Acute and subacute infective endocarditis (principal); G92 Toxic encephalopathy; E10.42 Type 1 diabetes mellitus with diabetic polyneuropathy; E10.319 Type 1 diabetes mellitus with unspecified diabetic retinopathy without macular edema; I10 Essential (primary) hypertension; I21.4 Non-ST elevation (NSTEMI) myocardial infarction; Z79.899 Other long term (current) drug therapy; Z79.82 Long term (current) use of aspirin; Z79.02 Long term (current) use of antithrombotics/antiplatelets; Z96.41 Presence of insulin pump (external) (internal); Z88.8 Allergy status to other drugs, medicaments and biological substances | CPT/HCPCS: 96365; J0696 ==

== ENCOUNTER 2019-01-16 11:07 | Day surgery (SDC) | payer MEDICARE, OTHER | END 2019-01-16 11:55 | disposition home or self-care (01) | LOC: ATC 11:07 | DX: I33.0 Acute and subacute infective endocarditis (principal); B96.20 Unspecified Escherichia coli [E. coli] as the cause of diseases classified elsewhere; I21.4 Non-ST elevation (NSTEMI) myocardial infarction; E78.5 Hyperlipidemia, unspecified; E11.42 Type 2 diabetes mellitus with diabetic polyneuropathy; E11.319 Type 2 diabetes mellitus with unspecified diabetic retinopathy without macular edema; D50.9 Iron deficiency anemia, unspecified; I10 Essential (primary) hypertension; M19.049 Primary osteoarthritis, unspecified hand; N40.0 Benign prostatic hyperplasia without lower urinary tract symptoms; Z86.73 Personal history of transient ischemic attack (TIA), and cerebral infarction without residual deficits; Z79.82 Long term (current) use of aspirin; Z79.02 Long term (current) use of antithrombotics/antiplatelets; Z79.4 Long term (current) use of insulin; Z96.41 Presence of insulin pump (external) (internal); Z88.8 Allergy status to other drugs, medicaments and biological substances; Z79.899 Other long term (current) drug therapy | CPT/HCPCS: 96365; J0696 ==

== ENCOUNTER 2019-01-17 00:04 | Day surgery (SDC) | payer MEDICARE, OTHER ==
--- NOTE | 2019-01-17 16:16 | NUR ---
IV SITE APPEARS TO HAVE SOME DRIED BLOOD UNDER DRESSING, PT DENIES ANY DISCOMFORT WITH SITE.
== END 2019-01-17 15:52 | disposition home or self-care (01) ==
LOC: ATC 00:04
DX: I33.0 Acute and subacute infective endocarditis (principal); B96.20 Unspecified Escherichia coli [E. coli] as the cause of diseases classified elsewhere; I21.4 Non-ST elevation (NSTEMI) myocardial infarction; E11.42 Type 2 diabetes mellitus with diabetic polyneuropathy; E11.319 Type 2 diabetes mellitus with unspecified diabetic retinopathy without macular edema; N40.0 Benign prostatic hyperplasia without lower urinary tract symptoms; M19.049 Primary osteoarthritis, unspecified hand; E78.5 Hyperlipidemia, unspecified; Z96.41 Presence of insulin pump (external) (internal); Z79.4 Long term (current) use of insulin; Z79.01 Long term (current) use of anticoagulants; Z79.82 Long term (current) use of aspirin; Z79.1 Long term (current) use of non-steroidal anti-inflammatories (NSAID); Z79.899 Other long term (current) drug therapy; Z79.02 Long term (current) use of antithrombotics/antiplatelets; Z88.8 Allergy status to other drugs, medicaments and biological substances
CPT/HCPCS: J0696

== ENCOUNTER 2019-01-21 01:02 | Day surgery (SDC) | payer MEDICARE, OTHER | END 2019-01-21 17:35 | disposition home or self-care (01) | LOC: ATC 01:02 | DX: I33.0 Acute and subacute infective endocarditis (principal); I21.4 Non-ST elevation (NSTEMI) myocardial infarction; E10.51 Type 1 diabetes mellitus with diabetic peripheral angiopathy without gangrene; I10 Essential (primary) hypertension; E10.319 Type 1 diabetes mellitus with unspecified diabetic retinopathy without macular edema; E10.49 Type 1 diabetes mellitus with other diabetic neurological complication; E78.5 Hyperlipidemia, unspecified; Z96.41 Presence of insulin pump (external) (internal); Z79.82 Long term (current) use of aspirin; Z79.899 Other long term (current) drug therapy | CPT/HCPCS: J0696 ==

== ENCOUNTER 2019-01-22 11:02 | Day surgery (SDC) | payer MEDICARE, OTHER | END 2019-01-22 12:03 | disposition home or self-care (01) | LOC: ATC 11:02 | DX: I33.0 Acute and subacute infective endocarditis (principal); I21.4 Non-ST elevation (NSTEMI) myocardial infarction; I10 Essential (primary) hypertension; E10.319 Type 1 diabetes mellitus with unspecified diabetic retinopathy without macular edema; E10.49 Type 1 diabetes mellitus with other diabetic neurological complication; E78.5 Hyperlipidemia, unspecified; E10.42 Type 1 diabetes mellitus with diabetic polyneuropathy; Z96.41 Presence of insulin pump (external) (internal); Z79.82 Long term (current) use of aspirin; Z79.899 Other long term (current) drug therapy; Z79.02 Long term (current) use of antithrombotics/antiplatelets; Z88.8 Allergy status to other drugs, medicaments and biological substances | CPT/HCPCS: J0696 ==

== ENCOUNTER 2019-01-23 11:12 | Day surgery (SDC) | payer MEDICARE, OTHER ==
--- NOTE | 2019-01-23 11:29 | NUR ---
IV IS A 24G TO LFA STARTED YESTERDAY 01/22/19. IV WNL AND FLUSHES WITHOUT DIFFICULTY
== END 2019-01-23 12:01 | disposition home or self-care (01) ==
LOC: ATC 11:12
DX: I33.0 Acute and subacute infective endocarditis (principal); B96.20 Unspecified Escherichia coli [E. coli] as the cause of diseases classified elsewhere; I21.4 Non-ST elevation (NSTEMI) myocardial infarction; E11.42 Type 2 diabetes mellitus with diabetic polyneuropathy; E78.5 Hyperlipidemia, unspecified; D50.9 Iron deficiency anemia, unspecified; E11.319 Type 2 diabetes mellitus with unspecified diabetic retinopathy without macular edema; I10 Essential (primary) hypertension; N40.0 Benign prostatic hyperplasia without lower urinary tract symptoms; M19.049 Primary osteoarthritis, unspecified hand; M48.061 Spinal stenosis, lumbar region without neurogenic claudication; E78.00 Pure hypercholesterolemia, unspecified; Z79.82 Long term (current) use of aspirin; Z79.02 Long term (current) use of antithrombotics/antiplatelets; Z79.4 Long term (current) use of insulin; Z79.1 Long term (current) use of non-steroidal anti-inflammatories (NSAID); Z79.899 Other long term (current) drug therapy; Z96.41 Presence of insulin pump (external) (internal); Z88.8 Allergy status to other drugs, medicaments and biological substances; Z91.048 Other nonmedicinal substance allergy status
CPT/HCPCS: J0696

== ENCOUNTER 2019-01-24 11:20 | Day surgery (SDC) | payer MEDICARE, OTHER ==
[2019-01-25] MEDS ORDERED: FISH OIL 1,001000 MG PO (13:54)
== END 2019-01-24 16:00 | disposition home or self-care (01) ==
LOC: ATC 11:20
DX: I33.0 Acute and subacute infective endocarditis (principal); B96.20 Unspecified Escherichia coli [E. coli] as the cause of diseases classified elsewhere; I25.2 Old myocardial infarction; E10.42 Type 1 diabetes mellitus with diabetic polyneuropathy; E78.5 Hyperlipidemia, unspecified; D50.9 Iron deficiency anemia, unspecified; E10.319 Type 1 diabetes mellitus with unspecified diabetic retinopathy without macular edema; I10 Essential (primary) hypertension; N40.0 Benign prostatic hyperplasia without lower urinary tract symptoms; M19.049 Primary osteoarthritis, unspecified hand; G47.00 Insomnia, unspecified; Z79.1 Long term (current) use of non-steroidal anti-inflammatories (NSAID); Z79.82 Long term (current) use of aspirin; Z79.02 Long term (current) use of antithrombotics/antiplatelets; Z79.4 Long term (current) use of insulin; Z96.41 Presence of insulin pump (external) (internal); Z79.899 Other long term (current) drug therapy; Z86.73 Personal history of transient ischemic attack (TIA), and cerebral infarction without residual deficits; Z88.8 Allergy status to other drugs, medicaments and biological substances; Z91.048 Other nonmedicinal substance allergy status
CPT/HCPCS: 96365; J0696

== ENCOUNTER 2019-01-28 00:11 | Day surgery (SDC) | payer MEDICARE, OTHER ==
[~2019-01-28 00:11] MED LIST changes: +FISH OIL 1,001000 MG PO
== END 2019-01-28 11:35 | disposition home or self-care (01) ==
LOC: ATC 00:11
DX: I33.0 Acute and subacute infective endocarditis (principal); E78.5 Hyperlipidemia, unspecified; E10.42 Type 1 diabetes mellitus with diabetic polyneuropathy; E10.319 Type 1 diabetes mellitus with unspecified diabetic retinopathy without macular edema; I10 Essential (primary) hypertension; Z88.8 Allergy status to other drugs, medicaments and biological substances; Z79.4 Long term (current) use of insulin; Z79.82 Long term (current) use of aspirin; Z79.02 Long term (current) use of antithrombotics/antiplatelets; Z79.899 Other long term (current) drug therapy
CPT/HCPCS: 96365; J0696

== ENCOUNTER 2019-01-29 10:44 | Day surgery (SDC) | payer MEDICARE, OTHER ==
--- NOTE | 2019-01-29 11:23 | NUR ---
IV SITE IS LOCATED ON LEFT FORARM.
== END 2019-01-29 11:22 | disposition home or self-care (01) ==
LOC: ATC 10:44
DX: I33.0 Acute and subacute infective endocarditis (principal); B96.20 Unspecified Escherichia coli [E. coli] as the cause of diseases classified elsewhere; I21.4 Non-ST elevation (NSTEMI) myocardial infarction; E11.42 Type 2 diabetes mellitus with diabetic polyneuropathy; E78.5 Hyperlipidemia, unspecified; D50.9 Iron deficiency anemia, unspecified; E11.319 Type 2 diabetes mellitus with unspecified diabetic retinopathy without macular edema; I10 Essential (primary) hypertension; N40.0 Benign prostatic hyperplasia without lower urinary tract symptoms; M19.049 Primary osteoarthritis, unspecified hand; M54.16 Radiculopathy, lumbar region; G47.00 Insomnia, unspecified; Z66 Do not resuscitate; Z86.73 Personal history of transient ischemic attack (TIA), and cerebral infarction without residual deficits; Z79.1 Long term (current) use of non-steroidal anti-inflammatories (NSAID); Z79.02 Long term (current) use of antithrombotics/antiplatelets; Z79.82 Long term (current) use of aspirin; Z79.4 Long term (current) use of insulin; Z96.41 Presence of insulin pump (external) (internal); Z79.899 Other long term (current) drug therapy; Z88.8 Allergy status to other drugs, medicaments and biological substances; Z91.048 Other nonmedicinal substance allergy status
CPT/HCPCS: 96365; J0696

== ENCOUNTER 2019-01-30 10:53 | Day surgery (SDC) | payer MEDICARE, OTHER ==
--- NOTE | 2019-01-30 11:31 | NUR ---
IV SITE IS LOCATED AT LEFT FOREARM. IV WNL
== END 2019-01-30 11:31 | disposition home or self-care (01) ==
LOC: ATC 10:53
DX: I33.0 Acute and subacute infective endocarditis (principal); B96.20 Unspecified Escherichia coli [E. coli] as the cause of diseases classified elsewhere; I21.4 Non-ST elevation (NSTEMI) myocardial infarction; E11.42 Type 2 diabetes mellitus with diabetic polyneuropathy; E78.5 Hyperlipidemia, unspecified; D50.9 Iron deficiency anemia, unspecified; E11.319 Type 2 diabetes mellitus with unspecified diabetic retinopathy without macular edema; I10 Essential (primary) hypertension; N40.0 Benign prostatic hyperplasia without lower urinary tract symptoms; M19.049 Primary osteoarthritis, unspecified hand; M54.16 Radiculopathy, lumbar region; Z66 Do not resuscitate; Z86.73 Personal history of transient ischemic attack (TIA), and cerebral infarction without residual deficits; Z79.1 Long term (current) use of non-steroidal anti-inflammatories (NSAID); Z79.02 Long term (current) use of antithrombotics/antiplatelets; Z79.82 Long term (current) use of aspirin; Z79.4 Long term (current) use of insulin; Z96.41 Presence of insulin pump (external) (internal); Z79.899 Other long term (current) drug therapy; Z88.8 Allergy status to other drugs, medicaments and biological substances; Z91.048 Other nonmedicinal substance allergy status
CPT/HCPCS: 96365; J0696

== ENCOUNTER 2019-01-31 00:04 | Day surgery (SDC) | payer MEDICARE, OTHER | END 2019-01-31 11:49 | disposition home or self-care (01) | LOC: ATC 00:04 | DX: I33.0 Acute and subacute infective endocarditis (principal); B96.20 Unspecified Escherichia coli [E. coli] as the cause of diseases classified elsewhere; I25.2 Old myocardial infarction; E11.42 Type 2 diabetes mellitus with diabetic polyneuropathy; E78.5 Hyperlipidemia, unspecified; D50.9 Iron deficiency anemia, unspecified; E11.319 Type 2 diabetes mellitus with unspecified diabetic retinopathy without macular edema; I10 Essential (primary) hypertension; N40.0 Benign prostatic hyperplasia without lower urinary tract symptoms; M19.049 Primary osteoarthritis, unspecified hand; G47.00 Insomnia, unspecified; M48.061 Spinal stenosis, lumbar region without neurogenic claudication; Z79.1 Long term (current) use of non-steroidal anti-inflammatories (NSAID); Z79.82 Long term (current) use of aspirin; Z79.4 Long term (current) use of insulin; Z79.02 Long term (current) use of antithrombotics/antiplatelets; Z79.899 Other long term (current) drug therapy; Z86.73 Personal history of transient ischemic attack (TIA), and cerebral infarction without residual deficits; Z88.8 Allergy status to other drugs, medicaments and biological substances; Z91.048 Other nonmedicinal substance allergy status | CPT/HCPCS: 96365; J0696 ==

== ENCOUNTER 2019-02-01 00:11 | Day surgery (SDC) | payer MEDICARE, OTHER | END 2019-02-01 11:35 | disposition home or self-care (01) | LOC: ATC 00:11 | DX: I33.0 Acute and subacute infective endocarditis (principal); B96.20 Unspecified Escherichia coli [E. coli] as the cause of diseases classified elsewhere; I25.2 Old myocardial infarction; E10.42 Type 1 diabetes mellitus with diabetic polyneuropathy; E78.5 Hyperlipidemia, unspecified; D50.9 Iron deficiency anemia, unspecified; E10.319 Type 1 diabetes mellitus with unspecified diabetic retinopathy without macular edema; I10 Essential (primary) hypertension; N40.0 Benign prostatic hyperplasia without lower urinary tract symptoms; M19.049 Primary osteoarthritis, unspecified hand; G47.00 Insomnia, unspecified; M48.061 Spinal stenosis, lumbar region without neurogenic claudication; Z79.1 Long term (current) use of non-steroidal anti-inflammatories (NSAID); Z79.82 Long term (current) use of aspirin; Z79.4 Long term (current) use of insulin; Z79.02 Long term (current) use of antithrombotics/antiplatelets; Z96.41 Presence of insulin pump (external) (internal); Z79.899 Other long term (current) drug therapy; Z86.73 Personal history of transient ischemic attack (TIA), and cerebral infarction without residual deficits; Z88.8 Allergy status to other drugs, medicaments and biological substances; Z91.048 Other nonmedicinal substance allergy status | CPT/HCPCS: 96365; J0696 ==

== ENCOUNTER 2019-02-02 00:10 | Day surgery (SDC) | payer MEDICARE, OTHER | END 2019-02-02 11:32 | disposition home or self-care (01) | LOC: ATC 00:10 | DX: I33.0 Acute and subacute infective endocarditis (principal); B96.20 Unspecified Escherichia coli [E. coli] as the cause of diseases classified elsewhere; I25.2 Old myocardial infarction; E10.42 Type 1 diabetes mellitus with diabetic polyneuropathy; E78.5 Hyperlipidemia, unspecified; D50.9 Iron deficiency anemia, unspecified; E10.319 Type 1 diabetes mellitus with unspecified diabetic retinopathy without macular edema; I10 Essential (primary) hypertension; N40.0 Benign prostatic hyperplasia without lower urinary tract symptoms; G47.00 Insomnia, unspecified; M48.061 Spinal stenosis, lumbar region without neurogenic claudication; M19.049 Primary osteoarthritis, unspecified hand; Z79.1 Long term (current) use of non-steroidal anti-inflammatories (NSAID); Z79.82 Long term (current) use of aspirin; Z79.4 Long term (current) use of insulin; Z79.02 Long term (current) use of antithrombotics/antiplatelets; Z96.41 Presence of insulin pump (external) (internal); Z79.899 Other long term (current) drug therapy; Z86.73 Personal history of transient ischemic attack (TIA), and cerebral infarction without residual deficits; Z88.8 Allergy status to other drugs, medicaments and biological substances; Z91.048 Other nonmedicinal substance allergy status | CPT/HCPCS: 96365; J0696 ==

== ENCOUNTER 2019-02-03 00:45 | Day surgery (SDC) | payer MEDICARE, OTHER | END 2019-02-03 14:23 | disposition home or self-care (01) | LOC: ATC 00:45 | DX: I33.0 Acute and subacute infective endocarditis (principal); B96.20 Unspecified Escherichia coli [E. coli] as the cause of diseases classified elsewhere; I25.2 Old myocardial infarction; E10.42 Type 1 diabetes mellitus with diabetic polyneuropathy; E78.5 Hyperlipidemia, unspecified; D50.9 Iron deficiency anemia, unspecified; E10.319 Type 1 diabetes mellitus with unspecified diabetic retinopathy without macular edema; I10 Essential (primary) hypertension; N40.0 Benign prostatic hyperplasia without lower urinary tract symptoms; M19.049 Primary osteoarthritis, unspecified hand; G47.00 Insomnia, unspecified; M48.061 Spinal stenosis, lumbar region without neurogenic claudication; Z79.1 Long term (current) use of non-steroidal anti-inflammatories (NSAID); Z79.82 Long term (current) use of aspirin; Z79.4 Long term (current) use of insulin; Z79.02 Long term (current) use of antithrombotics/antiplatelets; Z96.41 Presence of insulin pump (external) (internal); Z79.899 Other long term (current) drug therapy; Z86.73 Personal history of transient ischemic attack (TIA), and cerebral infarction without residual deficits; Z88.8 Allergy status to other drugs, medicaments and biological substances; Z91.048 Other nonmedicinal substance allergy status | CPT/HCPCS: 96365; J0696 ==

== ENCOUNTER 2019-02-04 00:26 | Day surgery (SDC) | payer MEDICARE, OTHER | END 2019-02-04 11:55 | disposition home or self-care (01) | LOC: ATC 00:26 | DX: I33.0 Acute and subacute infective endocarditis (principal); B96.20 Unspecified Escherichia coli [E. coli] as the cause of diseases classified elsewhere; I25.2 Old myocardial infarction; E10.42 Type 1 diabetes mellitus with diabetic polyneuropathy; E78.5 Hyperlipidemia, unspecified; D50.9 Iron deficiency anemia, unspecified; E10.319 Type 1 diabetes mellitus with unspecified diabetic retinopathy without macular edema; I10 Essential (primary) hypertension; N40.0 Benign prostatic hyperplasia without lower urinary tract symptoms; M19.049 Primary osteoarthritis, unspecified hand; G47.00 Insomnia, unspecified; Z79.899 Other long term (current) drug therapy; Z79.1 Long term (current) use of non-steroidal anti-inflammatories (NSAID); Z79.82 Long term (current) use of aspirin; Z79.02 Long term (current) use of antithrombotics/antiplatelets; Z79.4 Long term (current) use of insulin; Z96.41 Presence of insulin pump (external) (internal); Z86.73 Personal history of transient ischemic attack (TIA), and cerebral infarction without residual deficits; Z88.8 Allergy status to other drugs, medicaments and biological substances; Z91.048 Other nonmedicinal substance allergy status | CPT/HCPCS: 96365; J0696 ==

== ENCOUNTER 2019-02-07 00:28 | Day surgery (SDC) | payer MEDICARE, OTHER | END 2019-02-07 11:35 | disposition home or self-care (01) | LOC: ATC 00:28 | DX: I33.0 Acute and subacute infective endocarditis (principal); I21.4 Non-ST elevation (NSTEMI) myocardial infarction; E10.42 Type 1 diabetes mellitus with diabetic polyneuropathy; E10.319 Type 1 diabetes mellitus with unspecified diabetic retinopathy without macular edema; E78.5 Hyperlipidemia, unspecified; I10 Essential (primary) hypertension; Z79.82 Long term (current) use of aspirin; Z79.899 Other long term (current) drug therapy; Z79.02 Long term (current) use of antithrombotics/antiplatelets | CPT/HCPCS: J0696 ==

== ENCOUNTER → 2020-01-05 | Outpatient (CLI) | payer MEDICARE, OTHER ==
[2020-01-05 16:38] LABS: Creatinine, Urine Random 55.2 mg/dL (27.00-270.00); Microalb/Creat Ratio UR, Rand 15.634 mg/g (0.000-30.000); Microalbumin, Random Urine 8.63 mg/L (0.000-20.000)
== END | disposition home or self-care (01) ==
LOC: LAB 13:50 → LAB SHORT 13:50
PROVIDERS: Family Medicine
DX: E10.65 Type 1 diabetes mellitus with hyperglycemia (principal)
CPT/HCPCS: 82043; 82570

== ENCOUNTER 2022-06-09 11:58 | Inpatient (IN) | payer MEDICARE, OTHER ==
[~2022-06-09] VITALS: Ht 175.3 cm; Wt 69.3 kg
[2022-06-09 12:57] LABS: BASOPHILS ABSOLUTE AUTO 0.01 K/mm3 (0.00-0.23); BASOPHILS PERCENT AUTO 0 % (0-2); EOSINOPHILS PERCENT AUTO 0 % (0-6); Hematocrit 29.8 % (37.0-53.0); Hemoglobin 9.3 g/dL (13.5-17.5); IMMATURE GRAN ABSOLUTE AUTO 0.07 K/mm3 (0.00-0.10); IMMATURE GRAN PERCENT AUTO 1 % (0-1); LYMPHOCYTES ABSOLUTE AUTO 0.27 K/mm3 (0.84-5.20); LYMPHOCYTES PERCENT AUTO 2 % (21-46); MONOCYTES ABSOLUTE AUTO 0.88 K/mm3 (0.16-1.47); MONOCYTES PERCENT AUTO 8 % (4-13); Mean Corpuscular HGB 30.4 pg (26.0-34.0); Mean Corpuscular HGB Conc 31.2 g/dL (31.5-36.5); Mean Corpuscular Volume 97 fL (80-100); Mean Platelet Volume 10.9 fL (9.1-12.4); NEUTROPHILS ABSOLUTE AUTO 9.83 K/mm3 (1.96-9.15); NEUTROPHILS PERCENT AUTO 89 % (41-73); Platelet Count 266 K/mm3 (150-400); RDW Coefficient Variation 14.6 % (11.7-14.2); RDW Standard Deviation 52.1 fL (35.1-46.3); Red Blood Cell Count 3.06 M/mm3 (4.30-5.90); White Blood Cell Count 11.06 K/mm3 (4.00-11.30)
[2022-06-09 13:06] LABS: Albumin, Blood 3.6 g/dL (3.4-5.0); Albumin/Globulin Ratio 1.2 (0.8-1.8); Bilirubin, Total 0.6 mg/dL (0.1-1.0); Bun/Creatinine Ratio 30.9 (12.0-20.0); Creatinine, Blood 2.33 mg/dL (0.60-1.20); Globulin, Blood 3.1 g/dL (2.2-4.0); Total Protein, Blood 6.7 g/dL (6.4-8.2)
[2022-06-09 14:09] LABS: Magnesium, Blood 2.5 mg/dL (1.6-2.4)
[2022-06-09 14:11] LABS: Glucose, Blood 940 mg/dL (70-99)
[2022-06-09 15:01] LABS: Base Excess Venous -14.5 mmol/L; Bicarbonate Venous 13.9 mmol/L (24.0-30.0); PCO2 Venous 35.2 mmHg (38-42)
[2022-06-09 15:20] LABS: Calcium, Ionized (POC) 1.16 mmol/L (1.10-1.46); Chloride (POC) 97 mmol/L (98-108); Creatinine (POC) 2.4 mg/dL (0.8-1.3); Glucose (ISTAT POC) >700 mg/dL (70-99); Hemoglobin (POC) 10.2 g/dL (13.5-17.5); Potassium (POC) 5.6 mmol/L (3.5-5.5); Sodium (POC) 129 mmol/L (135-148); Total CO2 (POC) 15 mmol/L (21-32)
[2022-06-09 15:41] LABS: Glucose, Blood 865 mg/dL (70-99)
--- NOTE | 2022-06-09 16:25 | NUR ---
ARRIVAL TO ICU/SUMMARY PT ARRIVED TO UNIT AT 1625. PT ON INSULIN GTT AT 6UNITS/HR. GLUCOSE READ HIGH ON GLUCOMETER, BLOOD SAMPLE SENT TO LAB. PT IS A&OX3. HE REPORTS HIS PASSING AWAY IN [place] AND HAS BEEN STRUGGLING AT HOME SINCE. HE REPORTS HIS INSULIN PUMP STOPPED WORKING 3 DAYS AGO AND ALSO STOPPED EATING 3 DAYS AGO. HE REQUESTS DAUGHTER TO BE NOTIFIED AND TALKED TO HER ON THE PHONE. DAUGHTER REPORTS PT'S SON ALSO WITHIN THE LAST 6 MONTHS. LUNGS ARE CLEAR THROUGHOUT. HE IS ON RA WITH SPO2 >95%. NSR ON MONITOR WITH RATE 60S. BP STABLE WITH MAP >65. STRONG PULSES THROUGHOUT. BOWEL TONES HYPOACTIVE, ABDOMEN SOFT. PT HAD 1 INCONTINENT VOID AND NEW ATTENDS IN PLACE. PT REPORTS INCONTINENCE AT HOME. SKIN C/D/I. INSULIN GTT AT 6UNITS/HR AND NS 125ML/HR. POWERGLIDE PLACED THIS SHIFT AND PT HAS 3 PIV. BED IN LOW POSITION AND CALL LIGHT WITHIN REACH.
--- NOTE | 2022-06-09 17:19 | NUR ---
CODE STATUS DURING ADMISSION QUESTIONS, PT STS HE HAS A PAPER THAT STS HE IS "DNR". [facility] CALLED TO VERIFY AND PER ZULEMA STS PT IS DNR BUT WILL CONSIDER CPAP/BIPAP IF NEEDED. CODE STATUS CHANGED IN ORDERS.
[2022-06-09 17:45] LABS: Bun/Creatinine Ratio 32.5 (12.0-20.0); Calcium, Blood 7.1 mg/dL (8.5-10.1); Creatinine, Blood 1.94 mg/dL (0.60-1.20); Potassium, Blood 4.2 mmol/L (3.5-5.5)
[2022-06-09 18:12] LABS: Glucose, Blood 792 mg/dL (70-99)
[2022-06-09 19:07] LABS: Glucose, Blood 778 mg/dL (70-99)
[2022-06-09 20:24] LABS: Bun/Creatinine Ratio 31.6 (12.0-20.0); Calcium, Blood 8.3 mg/dL (8.5-10.1); Creatinine, Blood 2.25 mg/dL (0.60-1.20); Potassium, Blood 4.4 mmol/L (3.5-5.5)
[2022-06-09 22:24] LABS: Glucose, Blood 575 mg/dL (70-99)
[2022-06-09 22:30] LABS: Glucose, Blood 657 mg/dL (70-99)
[2022-06-10 00:36] LABS: Bun/Creatinine Ratio 30.6 (12.0-20.0); Calcium, Blood 8.2 mg/dL (8.5-10.1); Creatinine, Blood 2.19 mg/dL (0.60-1.20); Potassium, Blood 3.9 mmol/L (3.5-5.5)
[2022-06-10 04:20] LABS: BASOPHILS ABSOLUTE AUTO 0.02 K/mm3 (0.00-0.23); BASOPHILS PERCENT AUTO 0 % (0-2); EOSINOPHILS ABSOLUTE AUTO 0.06 K/mm3 (0.00-0.68); EOSINOPHILS PERCENT AUTO 1 % (0-6); Hemoglobin 8.6 g/dL (13.5-17.5); IMMATURE GRAN ABSOLUTE AUTO 0.03 K/mm3 (0.00-0.10); IMMATURE GRAN PERCENT AUTO 0 % (0-1); LYMPHOCYTES PERCENT AUTO 7 % (21-46); MONOCYTES PERCENT AUTO 9 % (4-13); Mean Corpuscular HGB 30.9 pg (26.0-34.0); Mean Corpuscular HGB Conc 34.4 g/dL (31.5-36.5); Mean Platelet Volume 9.6 fL (9.1-12.4); NEUTROPHILS ABSOLUTE AUTO 7.77 K/mm3 (1.96-9.15); NEUTROPHILS PERCENT AUTO 84 % (41-73); Platelet Count 231 K/mm3 (150-400); RDW Coefficient Variation 14.1 % (11.7-14.2); RDW Standard Deviation 46.3 fL (35.1-46.3); Red Blood Cell Count 2.78 M/mm3 (4.30-5.90); White Blood Cell Count 9.28 K/mm3 (4.00-11.30)
[2022-06-10 04:34] LABS: Mean Corpuscular Volume 90 fL (80-100)
[2022-06-10 04:52] LABS: Albumin, Blood 2.9 g/dL (3.4-5.0); Albumin/Globulin Ratio 1.3 (0.8-1.8); Bilirubin, Total 0.3 mg/dL (0.1-1.0); Bun/Creatinine Ratio 28.9 (12.0-20.0); Calcium, Blood 8.3 mg/dL (8.5-10.1); Creatinine, Blood 2.25 mg/dL (0.60-1.20); Globulin, Blood 2.3 g/dL (2.2-4.0); Potassium, Blood 3.9 mmol/L (3.5-5.5); Total Protein, Blood 5.2 g/dL (6.4-8.2)
--- NOTE | 2022-06-10 06:25 | NUR ---
PATIENT CONFUSED OVERNIGHT. SR/SB. ROOM AIR. TOLERATING DIET WITHOUT N/V. CONDOM CATHETER IN PLACE. LONG ACTING INSULIN GIVEN PATIENT IS BEING TRANSITIONED OFF OF INSULIN GTT. D5 1/2 NS INFUSING.
--- NOTE | 2022-06-10 07:11 | NUR ---
ASSUMPTION OF CARE PT RECEIVING D5 1/2NS AT 125ML/HR. INSULIN GTT ON STANDBY. PT IS A&OX3 WITH PLEASANT AFFECT. HE DENIES PAIN/DISCOMFORT AT THIS TIME. PT PROVIDED CUP OF WATER AND DENIES ADDITIONAL NEEDS AT THIS TIME. VSS. BED IN LOW POSITION AND CALL LIGHT WITHIN REACH.
--- NOTE | 2022-06-10 11:00 | NUR ---
UPDATE AT 0755 PT'S HR FLUCTUATING BETWEEN 60S-130S AND SWITCHING BETWEEN NSR AND AFIB. PT DENIES CP OR PALPITATIONS. BP STABLE. EKG DONE. DR MILLER NOTIFIED AND BEDSIDE EVAL DONE. PT CONTINUES TO DENY CP OR PALPITATIONS. ORDERS RECEIVED FOR ONE TIME DOSE AND CARDIOLOGY CONSULT. RN SURGERY ICU OFFICE NOTIFIED.
--- NOTE | 2022-06-10 15:19 | NUR ---
UPDATE INDUSTRIAL HYGIENE ENGINEER EVALUATED PT AND PLACED FURTHER ORDERS. PT REMAINS IN AFIB WITH RATE 120S-150S. PT DENIES CP OR PALPITATIONS. PT ASSISTED WITH ADLS AND SITTING IN A RECLINER. PT NEEDS MODERATE AMOUNT OF ASSISTANCE, 2 PEOPLE WITH GAIT BELT FOR TRANSFERS. PT STS HE DOES NOT USE A WALKER OR CANE AT HOME AND "GETS AROUND JUST FINE". PT A&OX3 WITH MOMENTS OF CONFUSION AND REPETITION OF QUESTIONS. TAB ALARM IN PLACE WHILE IN CHAIR AND CALL LIGHT WITHIN REACH.
--- NOTE | 2022-06-10 18:38 | NUR ---
SHIFT SUMMARY PT IS A&OX3, PARTICIPATES IN CONVERSATION AND TALKED TO ONE OF HIS DAUGHTERS ON THE PHONE TODAY. HE IS CURRENTLY SITTING IN A RECLINER EATING DINNER. HE WAS A MODERATE ASSIST WITH 2 PEOPLE. HE REMAINS IN AFIB WITH RATE 110S-150S. PT CONTINUES TO DENY CP OR PALPITATIONS AT THIS TIME. ENGAGEMENT LEAD ROUNDED AGAIN THIS EVENING TO CHECK ON PT. BP STABLE. PT REPORTED UNABLE TO VOID WITH CONDOM CATH ON, ATTENDS IN PLACE. PT HAD 100ML IN MUJICA BAG AND 2 INCONTINENT EPISODES AFTER REMOVAL. PT TRANSITIONED TO PCU STATUS. TAB ALARM ON PT WHILE IN CHAIR, CALL LIGHT WITHIN REACH.
--- NOTE | 2022-06-10 19:30 | NUR ---
ASSUMED CARE PATIENT IN CHAIR NO FAMILY AT BEDSIDE. ALERT AND ORIENTED. IV'S ARE SALINE LOCKED. IN AFIB, BP STABLE. CHAIR ALARM ON.
[2022-06-10 21:42] LABS: Anti-Xa UFH, PHA Monitoring <0.10 IU/mL; International Normalized Ratio 1.14; Prothrombin Time Results 11.9 Sec (9.7-11.5)
--- NOTE | 2022-06-10 21:44 | NUR ---
NOTIFICATION 2109 - NOTIFIED DR. MONTANO OF PATIENT HAVING SEVERAL PAUSES ABOUT 2.[address] MONTANO D/C METOPROLOL. 2142 - NOTFIED DR. MONTANO OF OF 378 AND PATIENT CONVERTED OUT OF AFIB. NOW SINUS WHITNEY - NO ORDERS RECEIVED.
--- NOTE | 2022-06-11 05:49 | NUR ---
SHIFT SUMMARY HEPARIN STARTED. PATIENT WITH FREQUENT PAUSES APROX 2.5 SEC METOPROLOL D/C PER DR. MONTANO CONVERTED TO SR-SB. INCONTINENT OF URINE.
--- NOTE | 2022-06-11 07:30 | NUR ---
PT AWAKE AND ALERT. ORIENTED TO SELF AND AWARE THAT HE IS IN THE HOSPITAL, BUT UNAWARE OF THE NAME OF THE HOSPITAL AND THE CITY. PT RE-ORIENTS SOMEWHAT WITH VERBAL CUES. ECG SHOWS SR WITH RATE 60'S. PT DENIES CP OR SOB. BP 114/59. TRACE PEDAL EDEMA NOTED. LUNGS CLEAR. NO NOTED COUGH. SATS>90% ON RA. PT DENIES GI DISTRESS. PT HAS ATTENDS ON AND URINAL NEAR HIM. ATTENDS IS DRY AND PT DENIES THE NEED TO VOID AT THIS TIME. SKIN C/D/I. CBG 304-PT REQUESTS TO BE GIVEN ALL MEDS WITH BREAKFAST WHEN IN ARRIVES. CALL LIGHT IN REACH.
--- NOTE | 2022-06-11 09:49 | NUR ---
Spiritual Care Visit. Pt. is awake and catches my eye as i walk by his room. Pt. is pleasant and rapport is quickly established. Pt. displays evidence of of being lonely. Encouraged Pt. 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
[2022-06-11 11:40] LABS: BASOPHILS ABSOLUTE AUTO 0.03 K/mm3 (0.00-0.23); BASOPHILS PERCENT AUTO 1 % (0-2); EOSINOPHILS PERCENT AUTO 2 % (0-6); Hematocrit 29.5 % (37.0-53.0); Hemoglobin 9.8 g/dL (13.5-17.5); IMMATURE GRAN ABSOLUTE AUTO 0.02 K/mm3 (0.00-0.10); IMMATURE GRAN PERCENT AUTO 0 % (0-1); LYMPHOCYTES ABSOLUTE AUTO 0.43 K/mm3 (0.84-5.20); LYMPHOCYTES PERCENT AUTO 7 % (21-46); MONOCYTES ABSOLUTE AUTO 0.49 K/mm3 (0.16-1.47); MONOCYTES PERCENT AUTO 8 % (4-13); Mean Corpuscular HGB 30.8 pg (26.0-34.0); Mean Corpuscular HGB Conc 33.2 g/dL (31.5-36.5); Mean Corpuscular Volume 93 fL (80-100); Mean Platelet Volume 10.5 fL (9.1-12.4); NEUTROPHILS PERCENT AUTO 84 % (41-73); Platelet Count 220 K/mm3 (150-400); RDW Coefficient Variation 14.6 % (11.7-14.2); RDW Standard Deviation 49.2 fL (35.1-46.3); Red Blood Cell Count 3.18 M/mm3 (4.30-5.90); White Blood Cell Count 6.47 K/mm3 (4.00-11.30)
--- NOTE | 2022-06-11 12:00 | NUR ---
PT REQUESTS TO REMAIN UP IN THE CHAIR. PT DENIES PAIN. DR. MILLER IN TO SEE PT AND FULL UPDATED GIVEN. LABS DRAWN. PT REMAINS IN SR. ECHO ORDERED. HEPARIN DRIP DISCONTINUED PER V.O. DR. MILLER. CBG 465-COVERED PER SLIDING SCALE AND ADDITIONAL 3 UNITS OF LANTUS GIVEN. PT MED-TELE STATUS.
[2022-06-11 12:11] LABS: Albumin, Blood 2.9 g/dL (3.4-5.0); Bilirubin, Total 0.5 mg/dL (0.1-1.0); Bun/Creatinine Ratio 37.7 (12.0-20.0); Calcium, Blood 8.2 mg/dL (8.5-10.1); Creatinine, Blood 1.59 mg/dL (0.60-1.20); Potassium, Blood 4.6 mmol/L (3.5-5.5); Total Protein, Blood 5.9 g/dL (6.4-8.2)
--- NOTE | 2022-06-11 12:41 | NUR ---
NO ACUTE CHANGES. REPORT GIVEN TO MEDICAL FLOOR RN IN PREP TO TRANSFER PT TO ROOM 352.
--- NOTE | 2022-06-11 16:39 | NUR ---
PT IS DOING WELL AND IS IMPROVING ON ALERTNESS. PT IS ABLE TO IDENTIFY HIS NURSE AND ASK APPROPRIATE QUESTIONS THIS AFTERNOON. PT WORKED WELL WITH PHYSICAL THERAPY AND IS MAKING NEEDS KNOWNAT THIS TIME. PT IS A ONE PERSON WITH GAITBELT AND WALKER. NO DISTRESS NOTED AT THIS TIME. WILL CONTINUE TO MONITOR.
[2022-06-12 06:30] LABS: BASOPHILS ABSOLUTE AUTO 0.02 K/mm3 (0.00-0.23); BASOPHILS PERCENT AUTO 0 % (0-2); EOSINOPHILS ABSOLUTE AUTO 0.13 K/mm3 (0.00-0.68); EOSINOPHILS PERCENT AUTO 3 % (0-6); Hematocrit 27.5 % (37.0-53.0); Hemoglobin 9.2 g/dL (13.5-17.5); IMMATURE GRAN ABSOLUTE AUTO 0.02 K/mm3 (0.00-0.10); IMMATURE GRAN PERCENT AUTO 0 % (0-1); LYMPHOCYTES ABSOLUTE AUTO 0.54 K/mm3 (0.84-5.20); LYMPHOCYTES PERCENT AUTO 12 % (21-46); MONOCYTES ABSOLUTE AUTO 0.54 K/mm3 (0.16-1.47); MONOCYTES PERCENT AUTO 12 % (4-13); Mean Corpuscular HGB 31.1 pg (26.0-34.0); Mean Corpuscular HGB Conc 33.5 g/dL (31.5-36.5); Mean Corpuscular Volume 93 fL (80-100); Mean Platelet Volume 10.6 fL (9.1-12.4); NEUTROPHILS ABSOLUTE AUTO 3.43 K/mm3 (1.96-9.15); NEUTROPHILS PERCENT AUTO 73 % (41-73); Platelet Count 186 K/mm3 (150-400); RDW Coefficient Variation 14.5 % (11.7-14.2); RDW Standard Deviation 49.7 fL (35.1-46.3); Red Blood Cell Count 2.96 M/mm3 (4.30-5.90); White Blood Cell Count 4.68 K/mm3 (4.00-11.30)
[2022-06-12 06:55] LABS: Calcium, Blood 8.3 mg/dL (8.5-10.1); Creatinine, Blood 1.18 mg/dL (0.60-1.20); Potassium, Blood 4.8 mmol/L (3.5-5.5)
--- NOTE | 2022-06-12 17:52 | NUR ---
SHIFT SUMMARY: CBG AT LUNCH WAS 422; DR. MILLER NOTIFIED, ORDERED EXTRA 5 UNITS OF HUMALOG TO BE GIVEN. NO EVENTS ON TELEMETRY, SR 70-90'S. GETTING UP TO BR WITH 1 PERSON ASSIST, GAIT BELT, AND FWW, GAIT IS WEAK BUT HE MOVES SLOWLY AND CAREFULLY. DENIED PAIN. SPOKE TO TWO OF PATIENT'S DAUGHTERS BY PHONE, GAVE UPDATES.
[2022-06-13 05:44] LABS: BASOPHILS ABSOLUTE AUTO 0.01 K/mm3 (0.00-0.23); BASOPHILS PERCENT AUTO 0 % (0-2); EOSINOPHILS ABSOLUTE AUTO 0.17 K/mm3 (0.00-0.68); EOSINOPHILS PERCENT AUTO 4 % (0-6); Hematocrit 25.7 % (37.0-53.0); Hemoglobin 8.5 g/dL (13.5-17.5); IMMATURE GRAN ABSOLUTE AUTO 0.02 K/mm3 (0.00-0.10); IMMATURE GRAN PERCENT AUTO 1 % (0-1); LYMPHOCYTES ABSOLUTE AUTO 0.44 K/mm3 (0.84-5.20); LYMPHOCYTES PERCENT AUTO 10 % (21-46); MONOCYTES ABSOLUTE AUTO 0.45 K/mm3 (0.16-1.47); MONOCYTES PERCENT AUTO 10 % (4-13); Mean Corpuscular HGB 30.7 pg (26.0-34.0); Mean Corpuscular HGB Conc 33.1 g/dL (31.5-36.5); Mean Corpuscular Volume 93 fL (80-100); Mean Platelet Volume 10.5 fL (9.1-12.4); NEUTROPHILS ABSOLUTE AUTO 3.26 K/mm3 (1.96-9.15); NEUTROPHILS PERCENT AUTO 75 % (41-73); Platelet Count 153 K/mm3 (150-400); RDW Coefficient Variation 14.7 % (11.7-14.2); RDW Standard Deviation 50.4 fL (35.1-46.3); Red Blood Cell Count 2.77 M/mm3 (4.30-5.90); White Blood Cell Count 4.35 K/mm3 (4.00-11.30)
[2022-06-13 06:11] LABS: Bun/Creatinine Ratio 29.1 (12.0-20.0); Calcium, Blood 8.5 mg/dL (8.5-10.1); Creatinine, Blood 1.03 mg/dL (0.60-1.20); Potassium, Blood 4.4 mmol/L (3.5-5.5)
--- NOTE | 2022-06-13 11:43 | NUR ---
DR. VILLALTA NOTIFIED THAT TELE CALLED AND PT HAD 12 BEATS OF SVT. NO NEW ORDERS.
--- NOTE | 2022-06-13 17:21 | NUR ---
SHIFT SUMMARY- PT AAOX3-4. FORGETFUL. PT HAD 12 BEATS OF SVT THIS SHIFT. MD AWARE. NO OTHER ACUTE EVENTS THIS SHIFT.
--- NOTE | 2022-06-13 17:36 | NUR ---
RN NOTIFIED MD VILLALTA OF ELEVATED BP TONIGHT. 173/66. GAVE VERBAL TO CHANGE LISINOPRIL TO 10MG BID.
--- NOTE | 2022-06-14 04:28 | NUR ---
Summary: No acute events overnight. Patient Aox4 but forgetful. Cont/Inc due to urgency. VSS, bp slightly elevated, Losartan changed to BID yesterday. Glucose checked Q2hr after patient fell asleep, levels did drop consistantly. Juice given with all glucose levels <100. Patient daughter is supposed to bring home insulin pump today. Bed alarm on patient unsteady on feet.
[2022-06-14 05:31] LABS: BASOPHILS ABSOLUTE AUTO 0.01 K/mm3 (0.00-0.23); BASOPHILS PERCENT AUTO 0 % (0-2); EOSINOPHILS ABSOLUTE AUTO 0.38 K/mm3 (0.00-0.68); EOSINOPHILS PERCENT AUTO 8 % (0-6); Hematocrit 26.6 % (37.0-53.0); Hemoglobin 8.9 g/dL (13.5-17.5); IMMATURE GRAN ABSOLUTE AUTO 0.02 K/mm3 (0.00-0.10); IMMATURE GRAN PERCENT AUTO 0 % (0-1); LYMPHOCYTES ABSOLUTE AUTO 0.84 K/mm3 (0.84-5.20); LYMPHOCYTES PERCENT AUTO 18 % (21-46); MONOCYTES ABSOLUTE AUTO 0.62 K/mm3 (0.16-1.47); MONOCYTES PERCENT AUTO 14 % (4-13); Mean Corpuscular HGB 31.7 pg (26.0-34.0); Mean Corpuscular HGB Conc 33.5 g/dL (31.5-36.5); Mean Corpuscular Volume 95 fL (80-100); Mean Platelet Volume 10.9 fL (9.1-12.4); NEUTROPHILS ABSOLUTE AUTO 2.73 K/mm3 (1.96-9.15); NEUTROPHILS PERCENT AUTO 59 % (41-73); Platelet Count 154 K/mm3 (150-400); RDW Coefficient Variation 14.9 % (11.7-14.2); RDW Standard Deviation 51.8 fL (35.1-46.3); Red Blood Cell Count 2.81 M/mm3 (4.30-5.90)
[2022-06-14 06:19] LABS: Creatinine, Blood 1.04 mg/dL (0.60-1.20); Percent Saturation 11.2 % (20.0-50.0); Potassium, Blood 4.8 mmol/L (3.5-5.5)
--- NOTE | 2022-06-14 09:00 | NUR ---
PT PLEASANT COOP A/O X3. DENIES PAIN TODAY. WAITING FOR INSULIN AND NEW BATTERY FOR PUMP. NOT ACCESSED AT THIS TIME. H/R REG, NO MURMUR NOTED. PER TELE NSR AT 78 WITH PAC'S. LUNGS CLEAR UPER, LIGHT CRACKLES BASES. ON R.A. BT X4 LAST BM YEST. PT STATES HARD. WILL ASK DR FOR MIRALAX PER PT REQUEST. VOIDS URINAL. 1 ASST FFWW TO BATHROOM. BED IN LOW POSITION, CALL LITE IN REACH, CALLS APPROP
--- NOTE | 2022-06-14 15:15 | NUR ---
1515 PT UNABLE TO PROGRAM PUMP AT THIS MOMEMT. CBG IS 401. CALLED KATHERINE ROCK ONE DOSE 6 UNITS SHORT ACTING. THEN PT CAN FINISH PUMP PROGRAMMING
--- NOTE | 2022-06-14 17:00 | NUR ---
CALLED DR VILLALTA. CBG 401 TO WHICH WE GAVE 6 UNITS. NOW IS 357 AND PT WAS ABLE TO GET INSULIN PUMP PROGRAMMED, BUT STATES NOT ACTIVE FOR COUPLE HOURS. OKAY TO GIVE STD 10 MG DOSE INSULIN AT 10 UNITS. THEN PT INSULIN PUMP SHOUD BE WORKING.
--- NOTE | 2022-06-14 18:15 | NUR ---
PT PLEASANT TODAY. DID FINALLY GET INSULIN PUMP UP AND WORKING TODAY. WE DID SUPPLEMENT TODAY, PT STATES PUMP NOT ABLE TO ADMIN INS FOR ABOUT 2 HRS AFTER REPROGRAMMING. DISCUSSED WITH DR VILLALTA. PT TO USE PUMP THIS AFT AND MAGAN. THEN IF ALL GOOD, WILL GO HOME TOMORROW. NOW THAT PUMP WORKING, NO OTHER CONCERNS NOTED. BED IN LOW POSITION, CALL LITE IN REACH, CALLS APPROP
--- NOTE | 2022-06-14 23:03 | NUR ---
PTS CBG 174 PT USING NEW INSULIN PUMP, WENT IN TO ROOM TO GIVE PT IS MEDS, PTS NSULIN PUMP GOING OFF WARNING OF LOW BG PT ASLEEP AND NOT WAKING TO NOTIFICATION. AWOKE PT AND GAVE NHIM JUICE CHEES AND CRACKES AND SND ENSURE AT BED SIDE INCASE ALARM WENT OFF AGAIN. ENCORAGED PT TO DRINK JUICE AND EAT SOMETHING WITH FATS AND PROTEIN TO KEEP CBG UP. PT ATE A PIECE OF SHEES AND SOME JUICE, PT ASLEEP AT THIS TIME AND NO ALARM SOUNDING.
--- NOTE | 2022-06-15 04:19 | NUR ---
PT RESTING IN BED, PT SEEMS TO BE COMFORTABLE, RESPERATAIONS EVEN AND UNLABORED. NO MORE LOW BG alarms, at this time
[2022-06-15 05:19] LABS: Bun/Creatinine Ratio 29.2 (12.0-20.0); Calcium, Blood 8.9 mg/dL (8.5-10.1); Creatinine, Blood 1.06 mg/dL (0.60-1.20); Potassium, Blood 4.5 mmol/L (3.5-5.5)
--- NOTE | 2022-06-15 09:00 | NUR ---
PT PLEASANT COOP A/O X3, STATES HIS INSULIN PUMP WORKING WELL T/O NIGHT. TOOK HOME INSULIN DOSING PER CARB [employer]OUNT AND I CHARTED PER ORDERS. H/R REG, NO MURMUR NOTED. PER TELE NSR AT 60. LUNGS CLEAR UPPER, DIIM BASES. ON R.A. BT X4 LAST BM 2 DAYS. +1 BLE EDEMA . VOIDS URINAL. FAMILY AT BEDSIDE. EAGER TO GO HOME. BED IN LOW POSITION, CALL LITE IN REACH, CALLS APPROP
--- NOTE | 2022-06-15 12:00 | NUR ---
PT DISCHARGE REVIEWED WITH PT. HE VERBALIZED UNDERSTANDING MEDS AND INST. STATES INSULIN PUMP WORKING WELL. IV PULLED INTACT. POWERGLIDE PULLED INTACT. TELE REMOVED AND RETURNED PRIOR. PT WHEELED TO DOOR AT 1200
== END 2022-06-15 11:59 | disposition home or self-care (01) | DRG 919 ==
LOC: ER 11:58 → ICUE 14:39 → ICUW 14:39 → ICUE 15:53 → MEDS 06-11 12:57
PROVIDERS: Emergency Medicine; Hospitalist; Student in an Organized Health Care Education/Training Program; ADMIT Family Medicine
DX: T85.694A Other mechanical complication of insulin pump, initial encounter (principal); E10.10 Type 1 diabetes mellitus with ketoacidosis without coma; I21.A1 Myocardial infarction type 2; G93.41 Metabolic encephalopathy; N17.9 Acute kidney failure, unspecified; I12.9 Hypertensive chronic kidney disease with stage 1 through stage 4 chronic kidney disease, or unspecified chronic kidney disease; E10.65 Type 1 diabetes mellitus with hyperglycemia; Z66 Do not resuscitate; E10.22 Type 1 diabetes mellitus with diabetic chronic kidney disease; E87.5 Hyperkalemia; D63.1 Anemia in chronic kidney disease; E10.649 Type 1 diabetes mellitus with hypoglycemia without coma; I48.0 Paroxysmal atrial fibrillation; D50.9 Iron deficiency anemia, unspecified; I25.10 Atherosclerotic heart disease of native coronary artery without angina pectoris; I49.9 Cardiac arrhythmia, unspecified; E86.0 Dehydration; N40.0 Benign prostatic hyperplasia without lower urinary tract symptoms; E10.42 Type 1 diabetes mellitus with diabetic polyneuropathy; E10.319 Type 1 diabetes mellitus with unspecified diabetic retinopathy without macular edema; N18.30 Chronic kidney disease, stage 3 unspecified; F42.9 Obsessive-compulsive disorder, unspecified; J30.9 Allergic rhinitis, unspecified; M25.552 Pain in left hip; M25.551 Pain in right hip; K59.00 Constipation, unspecified; M51.36 Other intervertebral disc degeneration, lumbar region; M48.061 Spinal stenosis, lumbar region without neurogenic claudication; M19.049 Primary osteoarthritis, unspecified hand; E78.5 Hyperlipidemia, unspecified; M85.80 Other specified disorders of bone density and structure, unspecified site; R63.4 Abnormal weight loss; Z60.9 Problem related to social environment, unspecified; Z88.8 Allergy status to other drugs, medicaments and biological substances; Z79.899 Other long term (current) drug therapy; Z79.4 Long term (current) use of insulin; Z79.82 Long term (current) use of aspirin; Z79.811 Long term (current) use of aromatase inhibitors; Z79.02 Long term (current) use of antithrombotics/antiplatelets; Z85.51 Personal history of malignant neoplasm of bladder; I25.2 Old myocardial infarction; Z98.890 Other specified postprocedural states; Z87.891 Personal history of nicotine dependence; Z86.79 Personal history of other diseases of the circulatory system; Z86.73 Personal history of transient ischemic attack (TIA), and cerebral infarction without residual deficits; Z68.21 Body mass index [BMI] 21.0-21.9, adult
CPT/HCPCS: 36415; 51798; 71045; 80047; 80048; 80053; 82607; 82728; 82746; 82803; 82947; 83540; 83550; 83735; 84443; 84484; 85014; 85025; 85520; 85610; 85730; 93005; 93010; 93306; 96361; 96374; 97112; 97116; 97162; 97165; 97530; 97535; 99285-25; A9270; C1751; J1644; J1815; J2405; J7030; J7042; J7050

== ENCOUNTER → 2022-11-25 | Outpatient (CLI) | payer MEDICARE ==
[2022-11-25 13:54] LABS: Albumin, Blood 3.6 g/dL (3.4-5.0); Anion Gap 8 mmol/L (6-16); Blood Urea Nitrogen 35 mg/dL (8-24); Bun/Creatinine Ratio 21.9 (12.0-20.0); CO2, Blood 25 mmol/L (21-32); Calcium, Blood 9.3 mg/dL (8.5-10.1); Chloride, Blood 102 mmol/L (98-108); Glomerular Filtration Rate 42 (60-); Glucose, Blood 147 mg/dL (70-99); Phosphorus, Blood 4.1 mg/dL (2.5-4.9); Potassium, Blood 4.1 mmol/L (3.5-5.5); Sodium, Blood 135 mmol/L (136-145)
[2022-11-27 17:53] LABS: Creatinine, Urine Random 60.6 mg/dL (27.00-270.00); Protein, Urine Random 8.5 mg/dL (0.0-11.9); Protein/Creat Ratio, Ur Random 0.1
== END | disposition home or self-care (01) ==
LOC: LAB 12:21 → LAB SHORT 12:21
PROVIDERS: Hospitalist
DX: N18.32 Chronic kidney disease, stage 3b (principal)
CPT/HCPCS: 36415; 80069; 82570; 84156

== ENCOUNTER → 2023-04-26 | Outpatient (CLI) | payer MEDICARE, OTHER ==
[2023-04-28 12:27] LABS: Microalbumin, Random Urine <5.000 mg/L (0.000-20.000)
[2023-04-28 12:28] LABS: Microalb/Creat Ratio UR, Rand Unable to Calculate mg/g (0.000-30.000)
== END ==
LOC: LAB 08:36 → LAB SHORT 08:36
PROVIDERS: Internal Medicine Endocrinology, Diabetes & Metabolism
DX: E10.65 Type 1 diabetes mellitus with hyperglycemia (principal)
CPT/HCPCS: 82043; 82570

== ENCOUNTER → 2023-10-28 | Outpatient (CLI) | payer MEDICARE, OTHER ==
[2023-10-28 11:26] LABS: Creatinine, Urine Random 89.4 mg/dL (27.00-270.00); Microalb/Creat Ratio UR, Rand 8.568 mg/g (0.000-30.000); Microalbumin, Random Urine 7.66 mg/L (0.000-20.000)
== END | disposition home or self-care (01) ==
LOC: LAB 09:37 → LAB SHORT 09:37
PROVIDERS: Hospitalist
DX: I12.9 Hypertensive chronic kidney disease with stage 1 through stage 4 chronic kidney disease, or unspecified chronic kidney disease (principal); N18.32 Chronic kidney disease, stage 3b
CPT/HCPCS: 82043; 82570

== ENCOUNTER 2024-02-06 10:17 | Emergency (ER) | payer MEDICARE, OTHER ==
[~2024-02-06] VITALS: Ht 152.4 cm; Wt 68.0 kg
[2024-02-06 10:33] VITALS: BP 151/63
[2024-02-06] MEDS ORDERED: Lidocaine 4% 1 Patch TOP ONE (14:10)
[2024-02-06] MEDS ORDERED: Ketorolac Tromethamine 15mg Vial IM ONE (14:10)
[2024-02-06] MEDS ORDERED: LIDOCAINE1 EACH TOP (14:28)
== END 2024-02-06 14:28 | disposition home or self-care (01) ==
LOC: ER 10:17
DX: M53.3 Sacrococcygeal disorders, not elsewhere classified (principal); M25.561 Pain in right knee; E11.9 Type 2 diabetes mellitus without complications; I10 Essential (primary) hypertension; I25.2 Old myocardial infarction; W10.1XXA Fall (on)(from) sidewalk curb, initial encounter; Z87.891 Personal history of nicotine dependence; Z79.82 Long term (current) use of aspirin; Z79.4 Long term (current) use of insulin; Z79.899 Other long term (current) drug therapy; Z88.8 Allergy status to other drugs, medicaments and biological substances; Z91.048 Other nonmedicinal substance allergy status
CPT/HCPCS: 72100; 73562-RT; 96372; 99283-25; A9270; J1885

== ENCOUNTER → 2024-04-26 | Outpatient (CLI) | payer MEDICARE, OTHER ==
[~2024-04-26] MED LIST changes: +LIDOCAINE1 EACH TOP
[2024-04-26 10:27] LABS: Appearance, Urine Clear (Clear); Bilirubin, Urine Neg (Neg); Blood, Urine Neg (Neg); Color, Urine Yellow (P-Yellow); Glucose Qualitative, Urine Neg (Neg); Ketones, Urine Neg (Neg); Leukocyte Esterase, Urine 1+ (Neg); Nitrite, Urine Neg (Neg); Protein, Urine Neg (Neg); Urobilinogen, Urine NORM (Normal)
[2024-04-26 10:42] LABS: Squamous Epithelial Cells Rare /hpf (Few)
[2024-04-26 10:43] LABS: Bacteria Few /hpf; Red Blood Cells, Urine 0-2 /hpf (0-2)
== END | disposition home or self-care (01) ==
LOC: LAB 08:00 → LAB SHORT 08:00 → LAB FUT 04-22 17:40
PROVIDERS: Hospitalist
DX: I12.9 Hypertensive chronic kidney disease with stage 1 through stage 4 chronic kidney disease, or unspecified chronic kidney disease (principal); N18.32 Chronic kidney disease, stage 3b
CPT/HCPCS: 81001; 87077; 87086; 87186

== ENCOUNTER 2024-05-20 16:55 | Emergency (ER) | payer MEDICARE, OTHER ==
[~2024-05-20] VITALS: Ht 152.4 cm; Wt 65.8 kg
[2024-05-20 18:26] VITALS: BP 134/79
[2024-05-20] MEDS ORDERED: Cephalexin Monohydrate 500 MG Cap PO ONE (18:30)
[2024-05-20] MEDS ORDERED: Diphth,Pertuss(Acell),Tet Vac 0.5 ML VIAL IM ONE (18:30)
[2024-05-20] MEDS ORDERED: CEPH500 PO (19:21)
== END 2024-05-20 19:31 | disposition home or self-care (01) ==
LOC: ER 16:55
DX: L03.116 Cellulitis of left lower limb (principal); T24.232A Burn of second degree of left lower leg, initial encounter; I10 Essential (primary) hypertension; D50.9 Iron deficiency anemia, unspecified; I25.2 Old myocardial infarction; E10.22 Type 1 diabetes mellitus with diabetic chronic kidney disease; I12.9 Hypertensive chronic kidney disease with stage 1 through stage 4 chronic kidney disease, or unspecified chronic kidney disease; N18.30 Chronic kidney disease, stage 3 unspecified; N40.0 Benign prostatic hyperplasia without lower urinary tract symptoms; E10.42 Type 1 diabetes mellitus with diabetic polyneuropathy; X16.XXXA Contact with hot heating appliances, radiators and pipes, initial encounter; Z88.8 Allergy status to other drugs, medicaments and biological substances; Z79.899 Other long term (current) drug therapy; Z96.41 Presence of insulin pump (external) (internal); Z79.82 Long term (current) use of aspirin
CPT/HCPCS: 90471; 90715; 99283-25; A9270

== ENCOUNTER 2024-05-27 16:13 | Inpatient (IN) | payer MEDICARE, OTHER ==
[~2024-05-27] VITALS: Ht 170.2 cm; Wt 73.2 kg
[~2024-05-27 16:13] MED LIST changes: +CALCIUM 600-VI1 EAC6 PO; -Calcium + Vita1 EACH PO; +INSULIN PUMP; -OMNIPOD DASH P1 EACH
[2024-05-27 17:21] LABS: BASOPHILS ABSOLUTE AUTO 0.03 K/mm3 (0.00-0.23); BASOPHILS PERCENT AUTO 1 % (0-2); EOSINOPHILS ABSOLUTE AUTO 0.15 K/mm3 (0.00-0.68); EOSINOPHILS PERCENT AUTO 3 % (0-6); Hematocrit 26.7 % (37.0-53.0); Hemoglobin 8.8 g/dL (13.5-17.5); IMMATURE GRAN ABSOLUTE AUTO 0.01 K/mm3 (0.00-0.10); IMMATURE GRAN PERCENT AUTO 0 % (0-1); LYMPHOCYTES ABSOLUTE AUTO 0.46 K/mm3 (0.84-5.20); LYMPHOCYTES PERCENT AUTO 10 % (21-46); MONOCYTES ABSOLUTE AUTO 0.49 K/mm3 (0.16-1.47); MONOCYTES PERCENT AUTO 10 % (4-13); Mean Corpuscular HGB 32.1 pg (26.0-34.0); Mean Corpuscular Volume 97 fL (80-100); Mean Platelet Volume 9.5 fL (9.1-12.4); NEUTROPHILS ABSOLUTE AUTO 3.66 K/mm3 (1.96-9.15); NEUTROPHILS PERCENT AUTO 76 % (41-73); Platelet Count 302 K/mm3 (150-400); RDW Coefficient Variation 13.6 % (11.7-14.2); RDW Standard Deviation 48.5 fL (35.1-46.3); Red Blood Cell Count 2.74 M/mm3 (4.30-5.90)
[2024-05-27 17:45] LABS: Albumin, Blood 3.4 g/dL (3.4-5.0); Bilirubin, Total 0.5 mg/dL (0.1-1.0); Bun/Creatinine Ratio 23.6 (12.0-20.0); Calcium, Blood 9.2 mg/dL (8.5-10.1); Creatinine, Blood 1.61 mg/dL (0.60-1.20); Globulin, Blood 3.5 g/dL (2.2-4.0); Total Protein, Blood 6.9 g/dL (6.4-8.2)
[2024-05-27] MEDS ORDERED: CefTRIAXone Sodium 1,000 MG in NS 100 ML IV ONE (21:35)
[2024-05-27] MEDS ORDERED: Vancomycin HCL 1,500 MG in NS 250 ML IV ONE (21:50)
[2024-05-27] MEDS ORDERED: Acetaminophen 325 MG TABLET PO PRN (22:35)
[2024-05-27] MEDS ORDERED: FLU VACC TS2024-25(6MOS UP)/PF 45 MCG/0.5 ML SYRINGE IM ONE (22:35)
[2024-05-27] MEDS ORDERED: Ondansetron HCl 2 MG / ML 2ML Vial IV PRN (22:35)
[2024-05-27] MEDS ORDERED: Polyethylene Glycol 3350 17 gm PO PRN (22:45)
[2024-05-28] MEDS ORDERED: MONT10T PO (01:40)
[2024-05-28] MEDS ORDERED: AMLODIPINE BESY10 MG PO (01:41)
[2024-05-28] MEDS ORDERED: FUROSEMIDE40 MG PO (01:41)
[2024-05-28] MEDS ORDERED: BUPROPION XL150 M1 PO (01:42)
[2024-05-28] MEDS ORDERED: K-Dur10 MEQ (01:43)
[2024-05-28] MEDS ORDERED: Ramipril10 MG PO (01:43)
[2024-05-28] MEDS ORDERED: CEPH500 PO (01:44)
[2024-05-28 04:38] VITALS: BP 113/57
[2024-05-28 04:53] LABS: BASOPHILS ABSOLUTE AUTO 0.03 K/mm3 (0.00-0.23); BASOPHILS PERCENT AUTO 1 % (0-2); EOSINOPHILS PERCENT AUTO 7 % (0-6); Hematocrit 23.4 % (37.0-53.0); Hemoglobin 7.7 g/dL (13.5-17.5); IMMATURE GRAN ABSOLUTE AUTO 0.01 K/mm3 (0.00-0.10); IMMATURE GRAN PERCENT AUTO 0 % (0-1); LYMPHOCYTES ABSOLUTE AUTO 0.64 K/mm3 (0.84-5.20); LYMPHOCYTES PERCENT AUTO 16 % (21-46); MONOCYTES ABSOLUTE AUTO 0.55 K/mm3 (0.16-1.47); MONOCYTES PERCENT AUTO 14 % (4-13); Mean Corpuscular HGB 32.4 pg (26.0-34.0); Mean Corpuscular HGB Conc 32.9 g/dL (31.5-36.5); Mean Corpuscular Volume 98 fL (80-100); Mean Platelet Volume 9.7 fL (9.1-12.4); NEUTROPHILS ABSOLUTE AUTO 2.51 K/mm3 (1.96-9.15); NEUTROPHILS PERCENT AUTO 62 % (41-73); Platelet Count 263 K/mm3 (150-400); RDW Coefficient Variation 13.8 % (11.7-14.2); RDW Standard Deviation 48.8 fL (35.1-46.3); Red Blood Cell Count 2.38 M/mm3 (4.30-5.90); White Blood Cell Count 4.04 K/mm3 (4.00-11.30)
[2024-05-28 05:14] LABS: Albumin, Blood 2.8 g/dL (3.4-5.0); Albumin/Globulin Ratio 0.9 (0.8-1.8); Bilirubin, Total 0.3 mg/dL (0.1-1.0); Bun/Creatinine Ratio 23.8 (12.0-20.0); Calcium, Blood 8.6 mg/dL (8.5-10.1); Creatinine, Blood 1.43 mg/dL (0.60-1.20); Magnesium, Blood 2.4 mg/dL (1.6-2.4); Potassium, Blood 4.5 mmol/L (3.5-5.5); Total Protein, Blood 5.8 g/dL (6.4-8.2)
[2024-05-28] MEDS ORDERED: Insulin Human Lispro 100 Units/ML 3ML Syringe SC SCH (07:30)
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
[2024-05-28 08:09] VITALS: BP 128/58
[2024-05-28] MEDS ORDERED: Ferrous Sulfate 325 MG Tab PO SCH (09:00)
[2024-05-28] MEDS ORDERED: Finasteride 5 MG Tab PO SCH (09:00)
[2024-05-28] MEDS ORDERED: Aspirin 81 MG Chew PO SCH (09:00)
[2024-05-28] MEDS ORDERED: Lactobacil 2-S.Thermo-Bifido 1 1 Cap PO SCH (09:00)
[2024-05-28] MEDS ORDERED: Enoxaparin 40 MG/0.4 ML SYR SC SCH (09:00)
[2024-05-28] MEDS ORDERED: Lisinopril 10 MG Tab PO SCH (09:00)
[2024-05-28] MEDS ORDERED: Atorvastatin 10 MG Tab PO SCH (09:00)
[2024-05-28] MEDS ORDERED: Calcium 500 MG/Vit D 200 Units Tab PO SCH (09:00)
[2024-05-28] MEDS ORDERED: Tamsulosin HCl 0.4 MG Cap PO SCH (09:00)
[2024-05-28] MEDS ORDERED: CeFAZolin Sodium 1,000 MG in NS 50 ML IV SCH (09:41)
[2024-05-28] MEDS ORDERED: NS 250 ML IV PRN (10:20)
--- NOTE | 2024-05-28 10:22 | NUR ---
REFUSAL FOR HOSPITAL INSULIN PT REFUSING HOSPITAL INSULIN, RESISTANT TO CBG CHECKS PATIENT STATES "I HAVE A MONITOR FOR THAT. I DON'T NEED ANOTHER." PT REQUESTING TO USE HIS OWN INSULIN PUMP. AT 09 PT MONITOR STATED HIS BLOOD SUGAR WAS 82. PT UNSURE OF HOW TO LOCATE HIS BASAL RATE HE SAYS THE PUMP CHANGES IT ON ITS OWN DEPENDING ON HIS SUGAR LEVEL. PT STATES HE WILL NOTIFY THE RN WHEN HE BOLUSES HIMSELF BUT STATES IT MIGHT BE OFTEN.
[2024-05-28 11:09] LABS: Percent Saturation 8.7 % (20.0-50.0)
[2024-05-28] MEDS ORDERED: Insulin Pump Cartridge MISC SC SCH ×2 (11:50→16:30)
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
--- NOTE | 2024-05-28 17:16 | NUR ---
INSULIN PUMP HISTORY PER PATIENT PUMP FOR 05/29/23 PER THE PATIENTS [employer] INSULIN PUMP: 0935: 3.25 UNIT BOLUS 1112: 4.275 UNIT BOLUS 1120: 1.7 UNIT BOLUS 1323: 333 BLOOD GLUCOSE READING 1334: 5.3 UNITS 1335: 4 UNITS 1655: 197 BLOOD SUGAR READING.
--- NOTE | 2024-05-28 17:57 | NUR ---
SHIFT SUMMARY PT MANAGING HIS OWN BLOOD SUGAR WITH HIS INSULIN ORDERED BY DR. NOEL. SEE PREVIOUS NOTES. CURRENTLY TAKING BLOOD SUGARS WITH HOSPITAL CBG ALSO. PT IND IN ROOM. AMBULATING TO BATHROOM WITH HIS CANE. UP TO CHAIR FOR MEALS. PHOTOS TAKEN OF L LEG WITH PATIENT VERBAL PERMISSION AND PLACED IN HARD CHART. ABX CHANGED TODAY AND RUNNING ORDERED. NO OTHER ACUTE CHANGES IN ASSESSMENT AT THIS TIME. VS REVIEWED. CALL LIGHT IN REACH. DENIES OTHER NEEDS AT THIS TIME.
[2024-05-28 18:00] VITALS: BP 126/42
[2024-05-28] MEDS ORDERED: Furosemide 40 MG Tab PO SCH (18:00)
[2024-05-28 19:43] VITALS: BP 139/54
[2024-05-29 04:38] VITALS: BP 143/48
[2024-05-29 04:45] LABS: BASOPHILS ABSOLUTE AUTO 0.06 K/mm3 (0.00-0.23); BASOPHILS PERCENT AUTO 1 % (0-2); EOSINOPHILS ABSOLUTE AUTO 0.29 K/mm3 (0.00-0.68); EOSINOPHILS PERCENT AUTO 7 % (0-6); Hematocrit 24.8 % (37.0-53.0); Hemoglobin 8.2 g/dL (13.5-17.5); IMMATURE GRAN ABSOLUTE AUTO 0.01 K/mm3 (0.00-0.10); IMMATURE GRAN PERCENT AUTO 0 % (0-1); LYMPHOCYTES ABSOLUTE AUTO 0.85 K/mm3 (0.84-5.20); LYMPHOCYTES PERCENT AUTO 19 % (21-46); MONOCYTES ABSOLUTE AUTO 0.58 K/mm3 (0.16-1.47); MONOCYTES PERCENT AUTO 13 % (4-13); Mean Corpuscular HGB 32.4 pg (26.0-34.0); Mean Corpuscular HGB Conc 33.1 g/dL (31.5-36.5); Mean Corpuscular Volume 98 fL (80-100); Mean Platelet Volume 9.7 fL (9.1-12.4); NEUTROPHILS ABSOLUTE AUTO 2.67 K/mm3 (1.96-9.15); NEUTROPHILS PERCENT AUTO 60 % (41-73); Platelet Count 291 K/mm3 (150-400); RDW Coefficient Variation 13.7 % (11.7-14.2); Red Blood Cell Count 2.53 M/mm3 (4.30-5.90); White Blood Cell Count 4.46 K/mm3 (4.00-11.30)
--- NOTE | 2024-05-29 05:08 | NUR ---
SHIFT SUMMARY PT ALERT ORIENTED X 4 ABLE TO VERBALIZE NEEDS GETS UP AND AMBULATES IN HIS ROOM AND IN HALLWAY. HIS LLE REMAINS RED AND SWOLLEN BUT THE REDNESS IS DECREASING. NO C/O PAIN TO THE AREA. REMAINS ON ANCEF Q8HR ORDERED. HE USES HIS OWN INSULIN PUMP WITH A ORDER FROM THE DR. FS DONE AC AND HS WAS 105. VSS ON RA SATTING AT 99%. HE HAD LABS DONE THIS AM. HES DUE TO BE DISCHARGED TO HOME TODAY. I CHECKED THE INSULIN PUMP AND IT ADMINISTERED ONLY ONE DOSE. HE WAS SLEEPING THIS AM AND DIDNT WANT ME TO BOTHER HIM TO READ THE NUMBERS. HES RESTING IN BED AT THIS TIME WITH CALL LIGHT IN REACH
[2024-05-29 05:16] LABS: Bun/Creatinine Ratio 23.5 (12.0-20.0); Calcium, Blood 8.6 mg/dL (8.5-10.1); Creatinine, Blood 1.66 mg/dL (0.60-1.20); Potassium, Blood 4.9 mmol/L (3.5-5.5)
[2024-05-29 07:41] VITALS: BP 138/57
[2024-05-29] MEDS ORDERED: Montelukast Sodium 10 MG Tab PO SCH (09:00)
[2024-05-29] MEDS ORDERED: buPROPion HCL 150 MG TAB.SR.12H PO SCH (09:00)
--- NOTE | 2024-05-29 11:35 | NUR ---
INCREASE IN CONFUSION PT ASKED WHERE HE WAS THIS AM. UNSURE IF HE WAS IN A HOTEL OR CORRECTION. PT REMINDED HE IS IN THE HOSPITAL. PT WAS AWARE OF THE YEAR AND DATE AND REASON FOR ADMISSION. PT ALSO REMOVED HIS IV THIS AM STATING HE DID NOT NEED IT AND WAS FOUND PLAYING WITH HIS PUMP. PT REMINDED TO NOT TOUCH THESE THINGS AND TO CALL STAFF IF IT IS BEEPING INSTEAD.
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
--- NOTE | 2024-05-29 13:28 | NUR ---
INSULIN PUMP HISTORY PER PTS PERSONAL INSULIN PUMP HISTORY LOG 1147: BLOOD SUGAR OF 262 1150: 6.525 UNITS GIVEN
[2024-05-29 16:10] VITALS: BP 91/35
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
[2024-05-29 18:01] VITALS: BP 120/45
--- NOTE | 2024-05-29 18:30 | NUR ---
PATIENT PERSONAL INSULIN PUMP HISTORY DATA 1351: 260 BLOOD SUGAR 1353: 5.55 UNITS INSULIN ADMINISTERED VIA PUMP
[2024-05-29 19:16] VITALS: BP 114/56
--- NOTE | 2024-05-30 04:09 | NUR ---
SHIFT SUMMARY PATIENT UP IN CHAIR AT SHIFT CHANGE. AXOX 3 AND INDEPENDENT WITH CANE. PIV INTACT. IV ABX INFUSED. CBG 231 WITH PATIENT HAVING INSULIN PUMP. DENIES CHEST PAIN, SOB, AND N/V. VSS/AFEBRILE. SLEPT MOST OF THE SHIFT. CALL LIGHT IN REACH. BED IN LOWEST POSITION. WILL CONTINUE TO MONITOR UNTIL DAY SHIFT NURSE ASSUMES CARE.
[2024-05-30 04:27] VITALS: BP 134/84
[2024-05-30 05:13] LABS: BASOPHILS ABSOLUTE AUTO 0.03 K/mm3 (0.00-0.23); BASOPHILS PERCENT AUTO 1 % (0-2); EOSINOPHILS ABSOLUTE AUTO 0.29 K/mm3 (0.00-0.68); EOSINOPHILS PERCENT AUTO 8 % (0-6); Hematocrit 22.9 % (37.0-53.0); Hemoglobin 7.6 g/dL (13.5-17.5); IMMATURE GRAN ABSOLUTE AUTO 0.01 K/mm3 (0.00-0.10); IMMATURE GRAN PERCENT AUTO 0 % (0-1); LYMPHOCYTES ABSOLUTE AUTO 0.58 K/mm3 (0.84-5.20); LYMPHOCYTES PERCENT AUTO 16 % (21-46); MONOCYTES ABSOLUTE AUTO 0.46 K/mm3 (0.16-1.47); MONOCYTES PERCENT AUTO 12 % (4-13); Mean Corpuscular HGB 32.2 pg (26.0-34.0); Mean Corpuscular HGB Conc 33.2 g/dL (31.5-36.5); Mean Corpuscular Volume 97 fL (80-100); Mean Platelet Volume 9.5 fL (9.1-12.4); NEUTROPHILS ABSOLUTE AUTO 2.34 K/mm3 (1.96-9.15); NEUTROPHILS PERCENT AUTO 63 % (41-73); Platelet Count 284 K/mm3 (150-400); RDW Coefficient Variation 13.6 % (11.7-14.2); RDW Standard Deviation 48.8 fL (35.1-46.3); Red Blood Cell Count 2.36 M/mm3 (4.30-5.90); White Blood Cell Count 3.71 K/mm3 (4.00-11.30)
[2024-05-30 05:25] LABS: Bun/Creatinine Ratio 26.4 (12.0-20.0); Calcium, Blood 8.4 mg/dL (8.5-10.1); Creatinine, Blood 1.59 mg/dL (0.60-1.20); Potassium, Blood 4.5 mmol/L (3.5-5.5)
[2024-05-30 06:16] VITALS: BP 143/45
[2024-05-30] MEDS ORDERED: Enoxaparin 40 MG/0.4 ML SYR SC SCH (09:00)
[2024-05-30] MEDS ORDERED: Enoxaparin 30 MG/0.3 ML SYR SC SCH (09:00)
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
[2024-05-30 16:53] VITALS: BP 131/55
[2024-05-30 20:28] VITALS: BP 131/55
--- NOTE | 2024-05-31 03:08 | NUR ---
SHIFT SUMMARY NO ACUTE EVENTS DURING THIS SHIFT. PT DENIES PAIN/DISCOMFORT. HS BG 252. NEW IV ON RFA, SALINE LOCKED. IV ABX INFUSED ORDERED. PT AMBULATES INDEPENDENTLY W/I THE HOSPITAL ROOM. [facility]. PT IS ABLE TO MAKE HIS NEEDS KNOWN, AND IS COOPERATIVE WITH CARE. A/O X3. BED AT THE LOWEST POSITION, CALL LIGHT W/I REACH. LLE EDEMA +2. SCAB OVER LLE WOUND.
[2024-05-31 04:53] VITALS: BP 147/50
[2024-05-31 05:05] LABS: BASOPHILS ABSOLUTE AUTO 0.05 K/mm3 (0.00-0.23); BASOPHILS PERCENT AUTO 1 % (0-2); EOSINOPHILS ABSOLUTE AUTO 0.25 K/mm3 (0.00-0.68); EOSINOPHILS PERCENT AUTO 6 % (0-6); Hematocrit 23.7 % (37.0-53.0); Hemoglobin 7.7 g/dL (13.5-17.5); IMMATURE GRAN ABSOLUTE AUTO 0.02 K/mm3 (0.00-0.10); IMMATURE GRAN PERCENT AUTO 1 % (0-1); LYMPHOCYTES PERCENT AUTO 17 % (21-46); MONOCYTES ABSOLUTE AUTO 0.58 K/mm3 (0.16-1.47); MONOCYTES PERCENT AUTO 14 % (4-13); Mean Corpuscular HGB 31.8 pg (26.0-34.0); Mean Corpuscular HGB Conc 32.5 g/dL (31.5-36.5); Mean Corpuscular Volume 98 fL (80-100); Mean Platelet Volume 9.6 fL (9.1-12.4); NEUTROPHILS ABSOLUTE AUTO 2.59 K/mm3 (1.96-9.15); NEUTROPHILS PERCENT AUTO 62 % (41-73); Platelet Count 299 K/mm3 (150-400); RDW Coefficient Variation 13.6 % (11.7-14.2); RDW Standard Deviation 48.9 fL (35.1-46.3); Red Blood Cell Count 2.42 M/mm3 (4.30-5.90); White Blood Cell Count 4.19 K/mm3 (4.00-11.30)
[2024-05-31 05:27] LABS: Bun/Creatinine Ratio 26.7 (12.0-20.0); Calcium, Blood 8.5 mg/dL (8.5-10.1); Creatinine, Blood 1.72 mg/dL (0.60-1.20); Potassium, Blood 4.4 mmol/L (3.5-5.5)
[2024-05-31 07:37] VITALS: BP 147/58
[2024-05-31 15:42] VITALS: BP 123/46
[2024-05-31] MEDS ORDERED: Insulin Human Lispro 100 Units/ML 3ML Syringe SC SCH (16:30)
--- NOTE | 2024-05-31 18:40 | NUR ---
PATIENT A/OX4, UP INDEPENDENTLY IN ROOM AND HALLS WITH CANE. VSS, ON RA. INSULIN PUMP RAN OUT OF INSULIN AND HUMALOG SS ORDERED INSTEAD. REDNESS TO L LEG IMPROVING. PATIENT CONTINUES ON ANCEF. PLEASANT AND COOPERATIVE WITH CARE. NO NEW CONCERNS THIS SHIFT.
[2024-05-31 20:23] VITALS: BP 116/53
[2024-06-01] MEDS ORDERED: Dextrose 50% 50 ML Syringe IV SCH (01:05)
[2024-06-01] MEDS ORDERED: Dextrose 5% 250 ML IV PRN (01:25)
[2024-06-01 04:25] VITALS: BP 160/49
[2024-06-01 05:09] LABS: BASOPHILS ABSOLUTE AUTO 0.04 K/mm3 (0.00-0.23); BASOPHILS PERCENT AUTO 1 % (0-2); EOSINOPHILS ABSOLUTE AUTO 0.31 K/mm3 (0.00-0.68); EOSINOPHILS PERCENT AUTO 7 % (0-6); Hematocrit 25.2 % (37.0-53.0); Hemoglobin 8.4 g/dL (13.5-17.5); IMMATURE GRAN ABSOLUTE AUTO 0.02 K/mm3 (0.00-0.10); IMMATURE GRAN PERCENT AUTO 0 % (0-1); LYMPHOCYTES ABSOLUTE AUTO 1.06 K/mm3 (0.84-5.20); LYMPHOCYTES PERCENT AUTO 23 % (21-46); MONOCYTES ABSOLUTE AUTO 0.57 K/mm3 (0.16-1.47); MONOCYTES PERCENT AUTO 12 % (4-13); Mean Corpuscular HGB 31.8 pg (26.0-34.0); Mean Corpuscular HGB Conc 33.3 g/dL (31.5-36.5); Mean Corpuscular Volume 96 fL (80-100); Mean Platelet Volume 9.7 fL (9.1-12.4); NEUTROPHILS PERCENT AUTO 57 % (41-73); Platelet Count 326 K/mm3 (150-400); RDW Coefficient Variation 13.8 % (11.7-14.2); Red Blood Cell Count 2.64 M/mm3 (4.30-5.90)
[2024-06-01 05:43] LABS: Calcium, Blood 8.8 mg/dL (8.5-10.1); Creatinine, Blood 1.45 mg/dL (0.60-1.20); Potassium, Blood 4.3 mmol/L (3.5-5.5)
--- NOTE | 2024-06-01 05:44 | NUR ---
SHIFT SUMMARY NOC PT A/O X 4. [place]. PLEASANT AND COOPERATIVE WITH CARE. DIASTOLIC BP REMAINS SOFT. PT BEFORE DINNER CBG 221 AND GIVEN 4 UNITS SHORT ACTING INSULING AND ATE ENTIRE DINNER, THEN BEDTIME CBG 88. PT SPOT CHECKED AT MIDNIGHT AND CBG 69. PT GIVEN CARBOHYDRATE REPLACEMENT AND CBG 181 AND 219 WHEN RECHECKED. HOSPITALIST NOTIFIED AND ORDER FOR HYPOGLYCEMIA PROTOCOL IN PLACE WITH IVPB D5W [address]. PT HAS SELF GLUCOSE MONITOR IN PLACE. PT L CALF STILL RED WITH BORDER IN PLACE, BUT NOT WARM/HOT TO TOUCH. PT CURRENTLY RESTING WITH BED IN LOWEST POSITION, AND CALL LIGHT WITHIN REACH.
[2024-06-01 07:23] VITALS: BP 155/56
[2024-06-01 07:24] VITALS: BP 155/56
[2024-06-01] MEDS ORDERED: Cefadroxil500 MG PO (11:24)
[2024-06-01] MEDS ORDERED: LACT PO (11:25)
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
== END 2024-06-01 15:25 | disposition home or self-care (01) | DRG 603 ==
LOC: ER 16:13 → MEDS 22:30 → ERHOLD 22:30 → MEDS 05-28 02:30 → ENPENDDIS 06-01 11:12 → MEDS 06-01 15:25
PROVIDERS: Family Medicine; Internal Medicine; Student in an Organized Health Care Education/Training Program; ADMIT Internal Medicine
DX: L03.116 Cellulitis of left lower limb (principal); Z66 Do not resuscitate; E10.22 Type 1 diabetes mellitus with diabetic chronic kidney disease; N18.30 Chronic kidney disease, stage 3 unspecified; Z85.51 Personal history of malignant neoplasm of bladder; Z86.73 Personal history of transient ischemic attack (TIA), and cerebral infarction without residual deficits; I25.2 Old myocardial infarction; N40.0 Benign prostatic hyperplasia without lower urinary tract symptoms; E78.5 Hyperlipidemia, unspecified; D50.9 Iron deficiency anemia, unspecified; E10.42 Type 1 diabetes mellitus with diabetic polyneuropathy; Z98.890 Other specified postprocedural states; Z88.8 Allergy status to other drugs, medicaments and biological substances; Z79.82 Long term (current) use of aspirin; Z79.899 Other long term (current) drug therapy
CPT/HCPCS: 36415; 80048; 80053; 82607; 82728; 82746; 82947; 83036; 83540; 83550; 83735; 85025; 93971; 96374; 96375; 97129; 97165; 99285-25; A9270; J0690; J0696; J1650; J3370; J7050

== ENCOUNTER 2024-06-11 16:14 | Inpatient (IN) | payer MEDICARE, OTHER ==
[~2024-06-11] VITALS: Ht 170.2 cm; Wt 65.0 kg
[~2024-06-11 16:14] MED LIST changes: +AMLODIPINE BESY10 MG PO; +BUPROPION XL150 M1 PO; +Cefadroxil500 MG PO; +FUROSEMIDE40 MG PO; +K-Dur10 MEQ; +LACT PO; +MONT10T PO
[2024-06-11 17:20] LABS: BASOPHILS ABSOLUTE AUTO 0.04 K/mm3 (0.00-0.23); BASOPHILS PERCENT AUTO 1 % (0-2); EOSINOPHILS ABSOLUTE AUTO 0.22 K/mm3 (0.00-0.68); EOSINOPHILS PERCENT AUTO 4 % (0-6); Hemoglobin 9.5 g/dL (13.5-17.5); IMMATURE GRAN ABSOLUTE AUTO 0.02 K/mm3 (0.00-0.10); IMMATURE GRAN PERCENT AUTO 0 % (0-1); LYMPHOCYTES ABSOLUTE AUTO 0.56 K/mm3 (0.84-5.20); LYMPHOCYTES PERCENT AUTO 11 % (21-46); MONOCYTES ABSOLUTE AUTO 0.46 K/mm3 (0.16-1.47); MONOCYTES PERCENT AUTO 9 % (4-13); Mean Corpuscular HGB 31.4 pg (26.0-34.0); Mean Corpuscular HGB Conc 31.7 g/dL (31.5-36.5); Mean Corpuscular Volume 99 fL (80-100); Mean Platelet Volume 9.3 fL (9.1-12.4); NEUTROPHILS ABSOLUTE AUTO 3.74 K/mm3 (1.96-9.15); NEUTROPHILS PERCENT AUTO 74 % (41-73); Platelet Count 299 K/mm3 (150-400); RDW Coefficient Variation 13.9 % (11.7-14.2); RDW Standard Deviation 50.3 fL (35.1-46.3); Red Blood Cell Count 3.03 M/mm3 (4.30-5.90); White Blood Cell Count 5.04 K/mm3 (4.00-11.30)
[2024-06-11 17:42] LABS: Albumin, Blood 3.8 g/dL (3.4-5.0); Albumin/Globulin Ratio 1.1 (0.8-1.8); Bilirubin, Total 0.5 mg/dL (0.1-1.0); Bun/Creatinine Ratio 25.5 (12.0-20.0); Calcium, Blood 9.3 mg/dL (8.5-10.1); Creatinine, Blood 1.65 mg/dL (0.60-1.20); Globulin, Blood 3.4 g/dL (2.2-4.0); Potassium, Blood 4.9 mmol/L (3.5-5.5); Total Protein, Blood 7.2 g/dL (6.4-8.2)
[2024-06-11] MEDS ORDERED: Ondansetron 4 MG TAB PO PRN (21:05)
[2024-06-11] MEDS ORDERED: Vancomycin HCL 1,750 MG in NS 500 ML IV ONE (21:15)
[2024-06-11] MEDS ORDERED: Acetaminophen 325 MG TABLET PO PRN (21:20)
[2024-06-11] MEDS ORDERED: NS 1,000 ML IV SCH ×2 (21:55→22:00)
[2024-06-11 22:39] VITALS: BP 142/59
--- NOTE | 2024-06-12 00:16 | NUR ---
PATIENT IS A NEW ADMIT FROM THE ED. ALERT ORIENTED AND ONE ASSIST FROM GURNEY TO BED. LEFT LOWER LEG CELLULITIS. CONSENT TO PHOTOGRAPH SIGNED AND PICTURE IN CHART. REPORTS WAS DISCHARGED A FEW WEEKS AGO FOR SAME DX. DENIES CHEST PAIN, SOB, AND N/V. ON ROOM AIR. MALE PUREWICK IN PLACE FROM ED AND RESTARTE . PATIENT IS USING HIS INSULIN PUMP. ORIENTED TO ROOM AND CALL LIGHT SYSTEM. WANTS TO SLEEP AFTER ASSESSMENT. WCTM.
--- NOTE | 2024-06-12 04:42 | NUR ---
SHIFT SUMMARY PATIENT HAD NO ACUTE CHANGES. RESTING IN BED AFTER ADMISSION. REPORTS DOSE NOT WATCH TV. [place] BUT HAS HEARING AIDS. DENIES CHEST PAIN,SOB, AND N/V. VSS/AFEBRILE. PUREWICK IN PLACE AND INSULIN PUMP ACTIVE. OPEN DRY WOUND TO LEFT MEDIAL CALF. PHOTO IN CHART. CALL LIGHT IN REACH. BED IN LOWEST POSITION. WILL CONTINUE TO MONITOR UNTIL DAY SHIFT NURSE ASSUMES CARE.
[2024-06-12 04:48] VITALS: BP 124/54
[2024-06-12 05:28] LABS: BASOPHILS ABSOLUTE AUTO 0.04 K/mm3 (0.00-0.23); BASOPHILS PERCENT AUTO 1 % (0-2); EOSINOPHILS ABSOLUTE AUTO 0.27 K/mm3 (0.00-0.68); EOSINOPHILS PERCENT AUTO 8 % (0-6); Hematocrit 24.3 % (37.0-53.0); Hemoglobin 7.8 g/dL (13.5-17.5); IMMATURE GRAN ABSOLUTE AUTO 0.02 K/mm3 (0.00-0.10); IMMATURE GRAN PERCENT AUTO 1 % (0-1); LYMPHOCYTES ABSOLUTE AUTO 0.58 K/mm3 (0.84-5.20); LYMPHOCYTES PERCENT AUTO 16 % (21-46); MONOCYTES ABSOLUTE AUTO 0.56 K/mm3 (0.16-1.47); MONOCYTES PERCENT AUTO 16 % (4-13); Mean Corpuscular HGB 31.8 pg (26.0-34.0); Mean Corpuscular HGB Conc 32.1 g/dL (31.5-36.5); Mean Corpuscular Volume 99 fL (80-100); Mean Platelet Volume 9.9 fL (9.1-12.4); NEUTROPHILS ABSOLUTE AUTO 2.08 K/mm3 (1.96-9.15); NEUTROPHILS PERCENT AUTO 59 % (41-73); Platelet Count 233 K/mm3 (150-400); RDW Coefficient Variation 13.9 % (11.7-14.2); RDW Standard Deviation 50.8 fL (35.1-46.3); Red Blood Cell Count 2.45 M/mm3 (4.30-5.90); White Blood Cell Count 3.55 K/mm3 (4.00-11.30)
[2024-06-12 06:06] LABS: Albumin, Blood 2.8 g/dL (3.4-5.0); Bilirubin, Total 0.5 mg/dL (0.1-1.0); Bun/Creatinine Ratio 26.8 (12.0-20.0); Calcium, Blood 8.3 mg/dL (8.5-10.1); Creatinine, Blood 1.38 mg/dL (0.60-1.20); Globulin, Blood 2.7 g/dL (2.2-4.0); Potassium, Blood 4.5 mmol/L (3.5-5.5); Total Protein, Blood 5.5 g/dL (6.4-8.2)
[2024-06-12] MEDS ORDERED: Insulin Human Lispro 100 Units/ML 3ML Syringe SC SCH (07:30)
[2024-06-12] MEDS ORDERED: Insulin Regular 100 UNIT/ML 10ML Vial SC SCH (07:30)
[2024-06-12 07:33] VITALS: BP 123/47
[2024-06-12] MEDS ORDERED: Lactobacil 2-S.Thermo-Bifido 1 1 Cap PO SCH (09:00)
[2024-06-12] MEDS ORDERED: Enoxaparin 40 MG/0.4 ML SYR SC SCH (09:00)
[2024-06-12] MEDS ORDERED: Docusate Sodium 100 MG Cap PO SCH (09:00)
[2024-06-12] MEDS ORDERED: Famotidine 20 MG Tab PO SCH (09:00)
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
[2024-06-12 15:35] VITALS: BP 147/59
[2024-06-12] MEDS ORDERED: TraMADol HCl 50 MG Tab PO PRN (18:10)
--- NOTE | 2024-06-12 18:46 | NUR ---
pt had an uneventful day, placed a condom cath after a bed change, has complained of pain to left leg, called Dr. Hernandez, recieved order for tramadol. he also complained of heel pain on the right side, heel is a bit pink and mushy, placed both heels in protectors, and floated heels on pillows. he expressed relief with that. no further changes this shift. call light in reach.
[2024-06-12 21:08] LABS: Vancomycin, Random 12.7 ug/mL
[2024-06-12] MEDS ORDERED: NS 250 ML IV PRN (21:50)
[2024-06-12] MEDS ORDERED: Vancomycin HCL 1,250 MG in NS 250 ML IV SCH (22:00)
[2024-06-12 22:16] VITALS: BP 123/51
--- NOTE | 2024-06-13 04:08 | NUR ---
SHIFT SUMMARY PATIENT HAD NO ACUTE CHANGES. ALERT ORIENTED AND SBA W/CANE TO BR. WILSON. CBG 110. INSULIN PUMP IN USE MONITOR BY PATIENT. HEELS FLOATED WHEN IN BED. PIV INTACT. IV ABX INFUSED. DENIES CHEST PAIN, SOB, AND N/V. VSS/AFEBRILE. CALL LIGHT IN REACH. BED IN LOWEST POSITION. WILL CONTINUE TO MONITOR UNTIL DAY SHIFT NURSE ASSUMES CARE.
[2024-06-13 05:03] VITALS: BP 146/58
[2024-06-13 05:24] LABS: BASOPHILS ABSOLUTE AUTO 0.04 K/mm3 (0.00-0.23); BASOPHILS PERCENT AUTO 1 % (0-2); EOSINOPHILS ABSOLUTE AUTO 0.33 K/mm3 (0.00-0.68); EOSINOPHILS PERCENT AUTO 8 % (0-6); Hematocrit 26.6 % (37.0-53.0); Hemoglobin 8.4 g/dL (13.5-17.5); IMMATURE GRAN ABSOLUTE AUTO 0.01 K/mm3 (0.00-0.10); IMMATURE GRAN PERCENT AUTO 0 % (0-1); LYMPHOCYTES ABSOLUTE AUTO 0.66 K/mm3 (0.84-5.20); LYMPHOCYTES PERCENT AUTO 15 % (21-46); MONOCYTES PERCENT AUTO 12 % (4-13); Mean Corpuscular HGB 31.5 pg (26.0-34.0); Mean Corpuscular HGB Conc 31.6 g/dL (31.5-36.5); Mean Corpuscular Volume 100 fL (80-100); Mean Platelet Volume 10.1 fL (9.1-12.4); NEUTROPHILS ABSOLUTE AUTO 2.79 K/mm3 (1.96-9.15); NEUTROPHILS PERCENT AUTO 65 % (41-73); Platelet Count 236 K/mm3 (150-400); RDW Coefficient Variation 14.1 % (11.7-14.2); RDW Standard Deviation 51.7 fL (35.1-46.3); Red Blood Cell Count 2.67 M/mm3 (4.30-5.90); White Blood Cell Count 4.33 K/mm3 (4.00-11.30)
[2024-06-13 05:48] LABS: Bun/Creatinine Ratio 26.4 (12.0-20.0); Calcium, Blood 8.3 mg/dL (8.5-10.1); Creatinine, Blood 1.29 mg/dL (0.60-1.20); Potassium, Blood 4.9 mmol/L (3.5-5.5)
[2024-06-13 07:13] VITALS: BP 161/53
[2024-06-13] MEDS ORDERED: Cefadroxil500 MG PO (10:34)
--- NOTE | 2024-06-13 11:39 | NUR ---
DC SUMMARY PT DC THIS SHIFT DC INSTRUCTION GONE OVER WITH PT WHOM STATED UNDERSTANDING. PT ESCORTED OUT TO PRIVATE VEHICLE BY THIS NURSE.
== END 2024-06-13 11:29 | disposition home or self-care (01) | DRG 638 ==
LOC: ER 16:14 → ERHOLD 21:00 → MEDS 21:00
PROVIDERS: Family Medicine; Physician Assistant; Student in an Organized Health Care Education/Training Program; ADMIT Internal Medicine
DX: E10.628 Type 1 diabetes mellitus with other skin complications (principal); L03.116 Cellulitis of left lower limb; E10.22 Type 1 diabetes mellitus with diabetic chronic kidney disease; N18.30 Chronic kidney disease, stage 3 unspecified; I25.2 Old myocardial infarction; I25.10 Atherosclerotic heart disease of native coronary artery without angina pectoris; I12.9 Hypertensive chronic kidney disease with stage 1 through stage 4 chronic kidney disease, or unspecified chronic kidney disease; N40.0 Benign prostatic hyperplasia without lower urinary tract symptoms; E10.42 Type 1 diabetes mellitus with diabetic polyneuropathy; E78.5 Hyperlipidemia, unspecified; D50.9 Iron deficiency anemia, unspecified; D63.1 Anemia in chronic kidney disease; Z86.73 Personal history of transient ischemic attack (TIA), and cerebral infarction without residual deficits; Z85.51 Personal history of malignant neoplasm of bladder; Z66 Do not resuscitate; Z88.8 Allergy status to other drugs, medicaments and biological substances; Z79.82 Long term (current) use of aspirin; Z79.899 Other long term (current) drug therapy; Z98.890 Other specified postprocedural states
CPT/HCPCS: 36415; 73701; 80048; 80053; 80202; 82947; 83605; 85025; 93926; 93971; 99284-25; A6590; A9270; J1650; J1815; J3370; J7040; J7050; Q9967

== ENCOUNTER 2024-07-02 17:17 | Emergency (ER) | payer MEDICARE, OTHER ==
[~2024-07-02] VITALS: Ht 170.2 cm; Wt 68.5 kg
[2024-07-02 17:41] VITALS: BP 119/36
[2024-07-02] MEDS ORDERED: Cefadroxil500 MG PO (18:19)
== END 2024-07-02 18:50 | disposition home or self-care (01) ==
LOC: ER 17:17
DX: L03.116 Cellulitis of left lower limb (principal); I12.9 Hypertensive chronic kidney disease with stage 1 through stage 4 chronic kidney disease, or unspecified chronic kidney disease; N18.30 Chronic kidney disease, stage 3 unspecified; E11.40 Type 2 diabetes mellitus with diabetic neuropathy, unspecified; I25.2 Old myocardial infarction; Z88.8 Allergy status to other drugs, medicaments and biological substances; Z79.4 Long term (current) use of insulin; Z79.82 Long term (current) use of aspirin; Z79.1 Long term (current) use of non-steroidal anti-inflammatories (NSAID); Z79.899 Other long term (current) drug therapy; E78.5 Hyperlipidemia, unspecified; E11.22 Type 2 diabetes mellitus with diabetic chronic kidney disease
CPT/HCPCS: 99283

== ENCOUNTER 2024-09-16 14:37 | Inpatient (IN) | payer MEDICARE ==
[2024-09-16] VITALS (9 sets, daily range): BP systolic 86–119; BP diastolic 51–89
[~2024-09-16] VITALS: Ht 172.7 cm; Wt 75.6 kg
[2024-09-16 15:20] LABS: pH Blood Venous 7.10 (7.34-7.37)
[2024-09-16 15:22] LABS: BASOPHILS ABSOLUTE AUTO 0.02 K/mm3 (0.00-0.23); BASOPHILS PERCENT AUTO 0 % (0-2); EOSINOPHILS ABSOLUTE AUTO 0.00 K/mm3 (0.00-0.68); EOSINOPHILS PERCENT AUTO 0 % (0-6); Hematocrit 31.7 % (37.0-53.0); Hemoglobin 9.5 g/dL (13.5-17.5); IMMATURE GRAN ABSOLUTE AUTO 0.06 K/mm3 (0.00-0.10); IMMATURE GRAN PERCENT AUTO 1 % (0-1); LYMPHOCYTES ABSOLUTE AUTO 0.21 K/mm3 (0.84-5.20); LYMPHOCYTES PERCENT AUTO 2 % (21-46); MONOCYTES ABSOLUTE AUTO 0.74 K/mm3 (0.16-1.47); MONOCYTES PERCENT AUTO 7 % (4-13); Mean Corpuscular HGB Conc 30.0 g/dL (31.5-36.5); Mean Corpuscular Volume 105 fL (80-100); NEUTROPHILS ABSOLUTE AUTO 9.57 K/mm3 (1.96-9.15); NEUTROPHILS PERCENT AUTO 90 % (41-73); NRBC ABSOLUTE 0.00 K/mm3 (0.00-0.02); NRBC Auto 0.0 /100 WBC (0.0-0.2); Platelet Count 312 K/mm3 (150-400); RDW Coefficient Variation 15.4 % (11.7-14.2); RDW Standard Deviation 59.9 fL (35.1-46.3)
[2024-09-16] MEDS ORDERED: NS 1,000 ML IV SCH ×2 (15:30→17:35)
[2024-09-16 15:36] LABS: Alanine Aminotransfer (ALT/SGP 32 U/L (12-78); Albumin, Blood 3.6 g/dL (3.4-5.0); Albumin/Globulin Ratio 1.2 (0.8-1.8); Anion Gap 24 mmol/L (3-11); Aspartate Aminotrans (AST/SGOT 77 U/L (12-37); Bilirubin, Total 0.6 mg/dL (0.1-1.0); Blood Urea Nitrogen 56 mg/dL (8-24); CO2, Blood 12 mmol/L (21-32); Calcium, Blood 9.4 mg/dL (8.5-10.1); Chloride, Blood 110 mmol/L (98-108); Creatinine, Blood 1.84 mg/dL (0.60-1.20); Ethanol (Alcohol), Blood, Med <3 mg/dL; Globulin, Blood 3.1 g/dL (2.2-4.0); Glucose, Blood 470 mg/dL (70-99); Potassium, Blood 5.8 mmol/L (3.5-5.5); Sodium, Blood 140 mmol/L (136-145); Total Protein, Blood 6.7 g/dL (6.4-8.2)
[2024-09-16] MEDS ORDERED: Calcium Gluconate 10% 100 MG/ML INJ IV ONE (16:10)
[2024-09-16] MEDS ORDERED: Albuterol 2.5 MG/3 ML VIAL INH SCH (16:10)
[2024-09-16] MEDS ORDERED: Insulin Regular 100 Unit/ML 1ML Dose IV ONE ×2 (16:10→17:35)
[2024-09-16] MEDS ORDERED: Diltiazem HCl 5 MG / ML 5ML Vial IV ONE (16:45)
[2024-09-16] MEDS ORDERED: Insulin Human Regular 100 UNIT in NS 100 ML IV SCH (16:45)
[2024-09-16 17:40] LABS: U Amphetamine Screen Not Detected; U Barbituate Screen Not Detected; U Benzodiazapine Screen Not Detected; U Buprenorphine Screen Not Detected; U Cannabinoids Screen Not Detected; U Cocaine Screen Not Detected; U Methadone Screen Not Detected; U Methamphetamine Screen Not Detected; U Opiates Screen Not Detected; U Oxycodone Screen Not Detected; U Phencyclidine Screen Not Detected
[2024-09-16 17:45] LABS: Anion Gap 25.0 mmol/L (3-11); Blood Urea Nitrogen 55.0 mg/dL (8-24); CO2, Blood 10.0 mmol/L (21-32); Calcium, Blood 9.2 mg/dL (8.5-10.1); Chloride, Blood 112.0 mmol/L (98-108); Creatinine, Blood 1.77 mg/dL (0.60-1.20); Glucose, Blood 453.0 mg/dL (70-99); Potassium, Blood 5.3 mmol/L (3.5-5.5); Sodium, Blood 142.0 mmol/L (136-145)
[2024-09-16] MEDS ORDERED: NS 0 ML IV ONE (18:52)
[2024-09-16 18:58] LABS: Anion Gap 23.0 mmol/L (3-11); Blood Urea Nitrogen 56.0 mg/dL (8-24); CO2, Blood 13.0 mmol/L (21-32); Calcium, Blood 8.8 mg/dL (8.5-10.1); Chloride, Blood 110.0 mmol/L (98-108); Creatinine, Blood 1.8 mg/dL (0.60-1.20); Glucose, Blood 454.0 mg/dL (70-99); Potassium, Blood 4.8 mmol/L (3.5-5.5); Sodium, Blood 141.0 mmol/L (136-145)
[2024-09-16 20:32] LABS: pH Blood Venous 7.26 (7.34-7.37)
[2024-09-16] MEDS ORDERED: Heparin Sodium,Porcine 5,000 UNIT/0.5 ML SDV SC SCH (21:00)
[2024-09-16 21:59] LABS: Anion Gap 15.0 mmol/L (3-11); Blood Urea Nitrogen 57.0 mg/dL (8-24); CO2, Blood 18.0 mmol/L (21-32); Calcium, Blood 8.9 mg/dL (8.5-10.1); Chloride, Blood 116.0 mmol/L (98-108); Creatinine, Blood 1.84 mg/dL (0.60-1.20); Glucose, Blood 300.0 mg/dL (70-99); Potassium, Blood 4.5 mmol/L (3.5-5.5); Sodium, Blood 144.0 mmol/L (136-145)
[2024-09-16] MEDS ORDERED: D5W-1/2NS 1,000 ML IV SCH (23:10)
[2024-09-17] VITALS (20 sets, daily range): BP systolic 91–193; BP diastolic 40–181
[2024-09-17 02:04] LABS: pH Blood Venous 7.34 (7.34-7.37)
[2024-09-17 02:12] LABS: Anion Gap 8.0 mmol/L (3-11); Blood Urea Nitrogen 55.0 mg/dL (8-24); CO2, Blood 24.0 mmol/L (21-32); Calcium, Blood 8.9 mg/dL (8.5-10.1); Chloride, Blood 118.0 mmol/L (98-108); Creatinine, Blood 1.82 mg/dL (0.60-1.20); Glucose, Blood 166.0 mg/dL (70-99); Potassium, Blood 4.1 mmol/L (3.5-5.5); Sodium, Blood 146.0 mmol/L (136-145)
[2024-09-17] MEDS ORDERED: Insulin Glargine-Yfgn 100 Unit/mL 3 ML SYR SC ONE (03:40)
[2024-09-17 06:14] LABS: BASOPHILS ABSOLUTE AUTO 0.03 K/mm3 (0.00-0.23); BASOPHILS PERCENT AUTO 0 % (0-2); EOSINOPHILS ABSOLUTE AUTO 0.06 K/mm3 (0.00-0.68); EOSINOPHILS PERCENT AUTO 1 % (0-6); Hematocrit 25.3 % (37.0-53.0); Hemoglobin 8.2 g/dL (13.5-17.5); IMMATURE GRAN ABSOLUTE AUTO 0.06 K/mm3 (0.00-0.10); IMMATURE GRAN PERCENT AUTO 1 % (0-1); LYMPHOCYTES ABSOLUTE AUTO 0.63 K/mm3 (0.84-5.20); LYMPHOCYTES PERCENT AUTO 6 % (21-46); MONOCYTES ABSOLUTE AUTO 0.90 K/mm3 (0.16-1.47); MONOCYTES PERCENT AUTO 9 % (4-13); Mean Corpuscular HGB Conc 32.4 g/dL (31.5-36.5); Mean Corpuscular Volume 98 fL (80-100); NEUTROPHILS ABSOLUTE AUTO 8.84 K/mm3 (1.96-9.15); NEUTROPHILS PERCENT AUTO 84 % (41-73); NRBC ABSOLUTE 0.00 K/mm3 (0.00-0.02); NRBC Auto 0.0 /100 WBC (0.0-0.2); Platelet Count 295 K/mm3 (150-400); RDW Coefficient Variation 15.1 % (11.7-14.2); RDW Standard Deviation 54.6 fL (35.1-46.3)
[2024-09-17 06:28] LABS: pH Blood Venous 7.34 (7.34-7.37)
[2024-09-17 06:58] LABS: Anion Gap 9.0 mmol/L (3-11); Blood Urea Nitrogen 53.0 mg/dL (8-24); CO2, Blood 23.0 mmol/L (21-32); Calcium, Blood 8.5 mg/dL (8.5-10.1); Chloride, Blood 115.0 mmol/L (98-108); Creatinine, Blood 1.82 mg/dL (0.60-1.20); Glucose, Blood 158.0 mg/dL (70-99); Potassium, Blood 4.1 mmol/L (3.5-5.5); Sodium, Blood 143.0 mmol/L (136-145)
[2024-09-17] MEDS ORDERED: Insulin Human Lispro 100 Units/ML 3ML Syringe SC SCH ×2 (07:30→21:00)
[2024-09-17] MEDS ORDERED: Insulin Glargine-Yfgn 100 Unit/mL 3 ML SYR SC SCH ×2 (21:00)
[2024-09-18] VITALS (15 sets, daily range): BP systolic 92–147; BP diastolic 49–88
[2024-09-18 02:40] LABS: BASOPHILS ABSOLUTE AUTO 0.02 K/mm3 (0.00-0.23); BASOPHILS PERCENT AUTO 0 % (0-2); EOSINOPHILS ABSOLUTE AUTO 0.07 K/mm3 (0.00-0.68); EOSINOPHILS PERCENT AUTO 1 % (0-6); Hematocrit 25.5 % (37.0-53.0); Hemoglobin 8.4 g/dL (13.5-17.5); IMMATURE GRAN ABSOLUTE AUTO 0.05 K/mm3 (0.00-0.10); IMMATURE GRAN PERCENT AUTO 1 % (0-1); LYMPHOCYTES ABSOLUTE AUTO 0.61 K/mm3 (0.84-5.20); LYMPHOCYTES PERCENT AUTO 9 % (21-46); MONOCYTES ABSOLUTE AUTO 0.64 K/mm3 (0.16-1.47); MONOCYTES PERCENT AUTO 9 % (4-13); Mean Corpuscular HGB Conc 32.9 g/dL (31.5-36.5); Mean Corpuscular Volume 97 fL (80-100); NEUTROPHILS ABSOLUTE AUTO 5.70 K/mm3 (1.96-9.15); NEUTROPHILS PERCENT AUTO 80 % (41-73); NRBC ABSOLUTE 0.00 K/mm3 (0.00-0.02); NRBC Auto 0.0 /100 WBC (0.0-0.2); Platelet Count 259 K/mm3 (150-400); RDW Coefficient Variation 15.1 % (11.7-14.2); RDW Standard Deviation 53.8 fL (35.1-46.3)
[2024-09-18] MEDS ORDERED: Metoprolol Tartrate 1 MG/ML 5 ML VIAL IV ONE ×2 (03:00→06:05)
[2024-09-18 03:11] LABS: Anion Gap 9 mmol/L (3-11); Blood Urea Nitrogen 60 mg/dL (8-24); CO2, Blood 23 mmol/L (21-32); Calcium, Blood 8.6 mg/dL (8.5-10.1); Chloride, Blood 110 mmol/L (98-108); Creatinine, Blood 2.13 mg/dL (0.60-1.20); Glucose, Blood 101 mg/dL (70-99); Magnesium, Blood 2.1 mg/dL (1.6-2.4); Potassium, Blood 4.1 mmol/L (3.5-5.5); Sodium, Blood 138 mmol/L (136-145)
[2024-09-18 11:06] LABS: Anti-Xa UFH, PHA Monitoring 0.11 IU/mL; Prothrombin Time Results 11.4 Sec (9.7-11.5)
[2024-09-18] MEDS ORDERED: Heparin Sodium,Porcine/0.5 NS 500 ML IV SCH (11:15)
--- NOTE | 2024-09-18 17:50 | NUR ---
PT GLU WAS LOW THIS MORNING, COVERED WITH JUICE. DIDN'T NEED ANY MORE COVERAGE UNTIL DINNER. HEPARIN GTT STARTED. PT CONVERTED FROM A-FIB TO NSR AT 1130. BATHED AND RESTING.
[2024-09-18] MEDS ORDERED: Dose Adjust by Pharmacy XX STA (19:08)
[2024-09-18] MEDS ORDERED: Insulin Glargine-Yfgn 100 Unit/mL 3 ML SYR SC SCH (21:00)
[2024-09-19] MEDS ORDERED: Dose Adjust by Pharmacy XX STA (01:06)
[2024-09-19 01:30] VITALS: BP 142/69
--- NOTE | 2024-09-19 02:01 | NUR ---
TRANSFER *LATE ENTRY* PT TRANSFER TO PCU 7 FROM ICU 14. AOX1-SELF ONLY. ANSWERS "IN THE BASEMENT, IN [place]" WHEN ASKED WHERE HE IS, WHEN TOLD HE'S IN THE HOSPITAL & ASKED WHY HES IN THE HOSPITAL PT STATES "BECAUSE YOU GUYS LIKE TO WIPE MY BUTT." PT STATES ITS APRIL FOR THE DATE. VERY CONFUSED & HAS TANGETABLE OFF TOPIC SPEECH @TIMES. INCLUDING ASKING THIS NURSE HOW LONG TONIO WORKED AT THE [facility]. PLEASENT & COOPERATIVE. CAN FOLLOW SIMPLE DIRECTIONS & ANSWER YES/NO QUESTIONS APPROPRIATE. REPORTS PAIN IN L SIDE & JOINTS, UNABLE TO RATE ON A SCALE BUT GRIMACES W/MOVEMENT. STATES HE NORMALLY TAKES TYLENOL FOR PAIN OR DISCOMFORT. WILL INFORM HOSPITALIST TO ORDER. VSS. ORIENTED TO RM & CALL LIGHT. BED ALARM IN PLACE.
[2024-09-19 04:12] VITALS: BP 139/70
--- NOTE | 2024-09-19 05:33 | NUR ---
SHIFT SUMMARY NO ACUTE CHANGES SINCE ARRIVING TO UNIT. AOX1, SELF ONLY. UNAWARE TO ANSWER PLACE, TOWN, DATE OR CURRENT SITUATION. VSS. TELE NSR HR 80'S. MUJICA DRAINING CLEAR YELLOW URINE, INCONT OF STOOL-HAVING FREQUENT LOOSE SM BM-ATTENDS CHANGED PRN. HS CBG @204. CURRENTLY ON HEP GTT 15U/KG/HR. CALL LIGHT & BED ALARM IN PLACE.
[2024-09-19 05:43] LABS: BASOPHILS ABSOLUTE AUTO 0.02 K/mm3 (0.00-0.23); BASOPHILS PERCENT AUTO 0 % (0-2); EOSINOPHILS ABSOLUTE AUTO 0.06 K/mm3 (0.00-0.68); EOSINOPHILS PERCENT AUTO 1 % (0-6); Hematocrit 23.2 % (37.0-53.0); Hemoglobin 7.5 g/dL (13.5-17.5); IMMATURE GRAN ABSOLUTE AUTO 0.04 K/mm3 (0.00-0.10); IMMATURE GRAN PERCENT AUTO 1 % (0-1); LYMPHOCYTES ABSOLUTE AUTO 0.53 K/mm3 (0.84-5.20); LYMPHOCYTES PERCENT AUTO 9 % (21-46); MONOCYTES ABSOLUTE AUTO 0.66 K/mm3 (0.16-1.47); MONOCYTES PERCENT AUTO 11 % (4-13); Mean Corpuscular HGB Conc 32.3 g/dL (31.5-36.5); Mean Corpuscular Volume 96 fL (80-100); NEUTROPHILS ABSOLUTE AUTO 4.54 K/mm3 (1.96-9.15); NEUTROPHILS PERCENT AUTO 78 % (41-73); NRBC ABSOLUTE 0.00 K/mm3 (0.00-0.02); NRBC Auto 0.0 /100 WBC (0.0-0.2); Platelet Count 219 K/mm3 (150-400); RDW Coefficient Variation 14.6 % (11.7-14.2); RDW Standard Deviation 51.2 fL (35.1-46.3)
[2024-09-19 06:10] LABS: Alanine Aminotransfer (ALT/SGP 40.0 U/L (12-78); Albumin, Blood 2.6 g/dL (3.4-5.0); Albumin/Globulin Ratio 0.9 (0.8-1.8); Anion Gap 9.0 mmol/L (3-11); Aspartate Aminotrans (AST/SGOT 77.0 U/L (12-37); Bilirubin, Total 0.6 mg/dL (0.1-1.0); Blood Urea Nitrogen 52.0 mg/dL (8-24); CO2, Blood 22.0 mmol/L (21-32); Calcium, Blood 8.5 mg/dL (8.5-10.1); Chloride, Blood 109.0 mmol/L (98-108); Creatinine, Blood 1.41 mg/dL (0.60-1.20); Globulin, Blood 2.8 g/dL (2.2-4.0); Glucose, Blood 192.0 mg/dL (70-99); Potassium, Blood 4.0 mmol/L (3.5-5.5); Sodium, Blood 136.0 mmol/L (136-145); Total Protein, Blood 5.4 g/dL (6.4-8.2)
[2024-09-19 07:50] VITALS: BP 161/67
[2024-09-19 10:15] LABS: Ferritin, Serum 91.0 ng/mL (26-388); Total Iron Binding Capacity 227.0 ug/dL (250-450)
[2024-09-19 10:25] LABS: MYOGLOBIN SERUM 3106 ng/mL (<=72)
[2024-09-19 10:56] VITALS: BP 169/63
[2024-09-19] MEDS ORDERED: TAMSULOSIN HCL0.4 M1 PO (13:07)
--- NOTE | 2024-09-19 13:11 | NUR ---
UPDATE PATIENT IS AOX1-2 UNABLE TO ANSWER COMPLEX QUESTIONS. DR NOEL IN TO ASSESS, THIS RN SHOWED DR THE SITES OF INSULIN PUMP AND BLOOD GLUCOSE METER. METER IS IN R UPPER THIGH/GROIN AREA, PUMP IS IN UPPER LEFT THIGH/GROIN AREA. NO ORDER TO REMOVE.HOME MED LIST IS UPDATED, AND SIL IS DC'D. PATIENT IS IN BED EATING LUNCH AT THIS TIME. CBG WAS 232 AND 4 UNITS INSULIN ADMINISTERED PER EMAR. BED ALARM ON.
[2024-09-19 16:12] VITALS: BP 145/70
--- NOTE | 2024-09-19 16:17 | NUR ---
SHIFT SUMMARY PATIENT IS AOX1-2 ABLE TO ANSWER YES OR NO QUESTIONS. 2 PERSON TRANSFER WITH GB. PATIENT REPORTS LEFT ARM AND LEFT LEG PAINFUL AND WEAK. LLE/CALF WITH WOUND CLEANSED AND NEW MEPITEL PLACED. MID TO UPPER RIGHT BACK WITH ABRAISION, MEPITEL PLACED. CBG AC/HS, MEDICATED PER EMAR. MUJICA DC'D TODAY AND BLADDER SCAN 6 HOURS AFTER REVEALS 495. STAIGHT CATH PREFORMED STERILE AND RESULTS OF 430. PATIENT HAS REDNESS AND ABRAISION TO COCCYX CREAM AND CLEAN ATTENDS. TURN Q2 WITH PILLOW. PT IN TO ASSESS PATIENT TODAY. CAREMANAGEMENT IN TO EVAL. CODE STATUS CHANGED TO DNR TODAY AND DAUGHTER UPDATED. BED ALARM ON BED CALL LIGHT IN REACH, VSS.
[2024-09-19 19:23] VITALS: BP 155/73
[2024-09-20] VITALS (7 sets, daily range): BP systolic 120–154; BP diastolic 59–92
[2024-09-20 01:16] LABS: Stool Occult Blood Guaiac 1 Pos (Neg)
[2024-09-20 05:12] LABS: BASOPHILS ABSOLUTE AUTO 0.02 K/mm3 (0.00-0.23); BASOPHILS PERCENT AUTO 0 % (0-2); EOSINOPHILS ABSOLUTE AUTO 0.09 K/mm3 (0.00-0.68); EOSINOPHILS PERCENT AUTO 1 % (0-6); Hematocrit 23.8 % (37.0-53.0); Hemoglobin 7.7 g/dL (13.5-17.5); IMMATURE GRAN ABSOLUTE AUTO 0.02 K/mm3 (0.00-0.10); IMMATURE GRAN PERCENT AUTO 0 % (0-1); LYMPHOCYTES ABSOLUTE AUTO 0.54 K/mm3 (0.84-5.20); LYMPHOCYTES PERCENT AUTO 8 % (21-46); MONOCYTES ABSOLUTE AUTO 0.97 K/mm3 (0.16-1.47); MONOCYTES PERCENT AUTO 15 % (4-13); Mean Corpuscular HGB Conc 32.4 g/dL (31.5-36.5); Mean Corpuscular Volume 97 fL (80-100); NEUTROPHILS ABSOLUTE AUTO 4.96 K/mm3 (1.96-9.15); NEUTROPHILS PERCENT AUTO 75 % (41-73); NRBC ABSOLUTE 0.00 K/mm3 (0.00-0.02); NRBC Auto 0.0 /100 WBC (0.0-0.2); Platelet Count 203 K/mm3 (150-400); RDW Coefficient Variation 14.6 % (11.7-14.2); RDW Standard Deviation 51.8 fL (35.1-46.3)
[2024-09-20 05:56] LABS: Anion Gap 7.0 mmol/L (3-11); Blood Urea Nitrogen 44.0 mg/dL (8-24); CO2, Blood 25.0 mmol/L (21-32); Calcium, Blood 8.5 mg/dL (8.5-10.1); Chloride, Blood 110.0 mmol/L (98-108); Creatinine, Blood 1.33 mg/dL (0.60-1.20); Glucose, Blood 95.0 mg/dL (70-99); Potassium, Blood 4.1 mmol/L (3.5-5.5); Sodium, Blood 138.0 mmol/L (136-145)
--- NOTE | 2024-09-20 07:17 | NUR ---
SHIFT SUMMARY: PT A&OX2 DISORIENTED TO DATE AND CURRENT SITUATION. HARD OF HEARING. VSS ON RA. INCONTINENT OF STOOL. SMALL DARK STOOL. POSITIVE OCCULT STOOL. RESIDENT NOTIFIED. HGB 7.7. NO NEW ORDERS AT THIS TIME. BLADDER SCAN X2. STRAIGHT CATH X2. TOTAL URINE OUTPUT 1100 FROM BOTH STRAIGHT CATHS. WEAK GETTING TO SIDE OF BED. BED IS LOW AND LOCKED. CALL LIGHT WITHIN REACH. REPORT GIVEN TO DAY NURSE.
[2024-09-20] MEDS ORDERED: Dextran/Hypromellose/Glycerin 15 DROP/ML BTL BOTHEYES PRN (11:55)
--- NOTE | 2024-09-20 13:18 | NUR ---
SHIFT SUMMARY: PATIENT REMAINS DISORIENTED X 2. TIME AND SITUATION, PATIENT HAS BEEN MORE WEAK THAN PREVIOUS DAY, PREVIOUS RN ENDORSED. HAVE BEEN REPOSITIONING Q2. PATIENT STILL ABLE TO MOVE ALL EXTREMES LEFT SIDE IS WEAKER, BUT HAS SHOULDER DIFFICULTY ABLE TO HOLD AND NO DRIFT FROM ABLE POSITION ON LEFT SIDE, EXTERMELY WEAK ON LOWER LIMBS BILATERALLY THE SAME. ENDORSES PINS AND NEEDLES WHEN BLOOD SUGAR INCREASE. PATIENT WAS IN THE 70'S THIS AM THAN NOON CHECK OF 311. PATIENT TREATED PER SS WILL MONITOR PER ORDER. PATIENT HAS BEEN SLEEPING MOST OF THE DAY SO FAR. HE HAS BEEN UNABLE TO VOID FIRST BLADDER SCAN 300'S CALL TO PROVIDER MONITOR AGAIN IN 2 HOURS AND CALL. DENIES CHEST PAIN PRESSURE OR SOB AT REST. PATIETN WITH DARK TARRTY STOOL HOWEVER ON FERROUS SULFATE, GI/GEN SURG DR. ETIENNE CONSULTED BY [facility] AND SEEN, NO CHANGES CURRENTLY. PLAN OF CARE CONTINUES.
[2024-09-20] MEDS ORDERED: Pantoprazole Sodium 40 MG Injection IV SCH (16:30)
--- NOTE | 2024-09-20 19:33 | NUR ---
ASSUMPTION OF CARE ASSUMED PT'S CARE AT 1900,BEDSIDE REPORT COMPLETED.PT IN BED, WIDE AWAKE.PT STATES THAT HE IS GOING HOME,PT REORIENTED TO TIME .PT STATES THAT HE IS AWARE OF THE TIME BY LOOKING AT THE CLOCK ON THE WALL.PT REMINDED WHY AND HOW HE GOT HERE.PT HAS NO RECOLLECTION OF HOW HE GOT TO THE HOSPITAL.PLAN OF CARE REVIEWED,PT DENIES PAIN,DENIES NEEDS.CALL LIGHT AND PT'S ITEMS WITHIN REACH.BED ALARM ON.MONITORING ONGOING PER CAREPLAN.
--- NOTE | 2024-09-20 19:38 | NUR ---
EOS: CHANGES FROM SHIFT SUMMARY IS PATIENT CONTINUED TO RETAIN, MUJICA PLACED PER PROVIDER, PATIENT WITH RECENT STRAIGHT CATHING X 3 AND BLADDER VOLUME OF >500. PATIENT TOWARDS THE END OF THE SHIFT BECAME MORE CONFUSED APPEARING TO BE SUNDOWNING HIS MENTATION DECREASED, NO LONGER ORIENTED TO PLACE, DID KNOW TIME, NOT EXACT DATE. FORGETFUL OF SITUATION AND PLACE. STILL DENIES CHEST PAIN/PRESSURE OR SOB. VSS, NO ACUTE CONCERNS NOT ADDRESSED.
[2024-09-21 04:51] VITALS: BP 142/54
--- NOTE | 2024-09-21 04:52 | NUR ---
PT A&OO TO SELF ONLY, VS WNL, TELE IS NSR IN 70-80'S, DID HAVE A PAUSE IN NIGHT WHILE SOUND ASLEEP, 2.19 SEC'S. PT ON BR WITH PT AND OT WORKING WITH PT. PT NEEDS A LOT OF CUE'S FOR BED MOBILITY, BUT CAN ROLL FROM SIDE TO SIDE WITH ASSIST. PT INCONTINENT OF BOWEL, X2 EPISODES THIS SHIFT. CBG AT HS WAS 249 RECIEVED LONG ACTING ONLY. PT C/O HEADACHE AT 0230 AND WAS MEDICATED WITH TYLENOL. WT STABLE. MUJICA DRAINING CLEAR YELLOW URINE. PT CAN NOT COMPREHEND HOW TO USE CALL SYSTEM. BED ALARM IN PLACE. SCD'S IN PLACE. PLAN TO D/C TO SNF FOR FURTHER REHAB.
[2024-09-21 05:12] LABS: BASOPHILS ABSOLUTE AUTO 0.02 K/mm3 (0.00-0.23); BASOPHILS PERCENT AUTO 0 % (0-2); EOSINOPHILS ABSOLUTE AUTO 0.15 K/mm3 (0.00-0.68); EOSINOPHILS PERCENT AUTO 2 % (0-6); Hematocrit 22.8 % (37.0-53.0); Hemoglobin 7.3 g/dL (13.5-17.5); IMMATURE GRAN ABSOLUTE AUTO 0.02 K/mm3 (0.00-0.10); IMMATURE GRAN PERCENT AUTO 0 % (0-1); LYMPHOCYTES ABSOLUTE AUTO 0.44 K/mm3 (0.84-5.20); LYMPHOCYTES PERCENT AUTO 6 % (21-46); MONOCYTES ABSOLUTE AUTO 1.03 K/mm3 (0.16-1.47); MONOCYTES PERCENT AUTO 14 % (4-13); Mean Corpuscular HGB Conc 32.0 g/dL (31.5-36.5); Mean Corpuscular Volume 97 fL (80-100); NEUTROPHILS ABSOLUTE AUTO 5.73 K/mm3 (1.96-9.15); NEUTROPHILS PERCENT AUTO 78 % (41-73); NRBC ABSOLUTE 0.00 K/mm3 (0.00-0.02); NRBC Auto 0.0 /100 WBC (0.0-0.2); Platelet Count 193 K/mm3 (150-400); RDW Coefficient Variation 14.6 % (11.7-14.2); RDW Standard Deviation 52.4 fL (35.1-46.3)
[2024-09-21 05:49] LABS: Anion Gap 7.0 mmol/L (3-11); Blood Urea Nitrogen 42.0 mg/dL (8-24); CO2, Blood 24.0 mmol/L (21-32); Calcium, Blood 8.4 mg/dL (8.5-10.1); Chloride, Blood 109.0 mmol/L (98-108); Creatinine, Blood 1.22 mg/dL (0.60-1.20); Glucose, Blood 251.0 mg/dL (70-99); Potassium, Blood 4.2 mmol/L (3.5-5.5); Sodium, Blood 136.0 mmol/L (136-145)
[2024-09-21 07:22] VITALS: BP 144/55
[2024-09-21] MEDS ORDERED: Insulin Glargine-Yfgn 100 Unit/mL 3 ML SYR SC SCH (10:00)
--- NOTE | 2024-09-21 19:33 | NUR ---
SUMMARY PT EVALUATED BY OCCUPATIONAL THERAPY TODAY. FIRST TIME UP OOB TODAY. UP IN CHAIR FOR ABOUT TWO HOURS WITH CHAIR ALARM. GOING THROUGH CHART AND ORDERS PT SEVERE STOOL COLLECTION IN RECTUM WAS NEVER ADDRESSED. DR. NOEL NOTIFED AND ORDERED DAILY FLEET ENEMA PRN. ENEMA GIVEN AND NOT MUCH CAME OUT, NO SOLID PIECES. PASSED ON TO ONCOMING AQUATICS INSTRUCTOR HE WILL LIKELY NEED MORE OF A BOWEL REGIMEN ON BOARD. PT IS A TYPE 1 DIABETIC, LONG ACTING INSLULIN INCREASED TO BID TODAY. WELL SHORT ACTING ACHS. PT HAS MULTIPLE SBRASIONS AND SCABS TO LLE, BACK AND ARMS. PT A/OX3 ON ASSESSMENT BUT VERY CONFUSED WITH CONVERSATION APART FROM USUAL ORIENTATION QUESTIONS. MUJICA FOR ACUTE RETENTION PATENT AND DRAINING TO GRAVITY. PT NORMALLY LIVES ALONE, PLAN TO SEND TO SNF BUT MAY NEED LTC IF MENTATION DOES NOT CLEAR UP. PT UNABLE TO MANAGE INSULIN HIMSELF. NONSKID SOCKS ON. PT DOES NOT CALL APPROPRIATELY. DAUGHTER SABINE WAS UPDATED ON PLAN OF CARE VIA PHONE WITH PATIENTS PERMISSION.
[2024-09-21 19:54] VITALS: BP 132/41
[2024-09-21 23:57] VITALS: BP 116/53
[2024-09-22] VITALS (7 sets, daily range): BP systolic 125–139; BP diastolic 51–63
[2024-09-22 04:57] LABS: BASOPHILS ABSOLUTE AUTO 0.01 K/mm3 (0.00-0.23); BASOPHILS PERCENT AUTO 0 % (0-2); EOSINOPHILS ABSOLUTE AUTO 0.29 K/mm3 (0.00-0.68); EOSINOPHILS PERCENT AUTO 4 % (0-6); Hematocrit 20.8 % (37.0-53.0); Hemoglobin 6.8 g/dL (13.5-17.5); IMMATURE GRAN ABSOLUTE AUTO 0.04 K/mm3 (0.00-0.10); IMMATURE GRAN PERCENT AUTO 1 % (0-1); LYMPHOCYTES ABSOLUTE AUTO 0.55 K/mm3 (0.84-5.20); LYMPHOCYTES PERCENT AUTO 8 % (21-46); MONOCYTES ABSOLUTE AUTO 0.93 K/mm3 (0.16-1.47); MONOCYTES PERCENT AUTO 14 % (4-13); Mean Corpuscular HGB Conc 32.7 g/dL (31.5-36.5); Mean Corpuscular Volume 97 fL (80-100); NEUTROPHILS ABSOLUTE AUTO 5.09 K/mm3 (1.96-9.15); NEUTROPHILS PERCENT AUTO 74 % (41-73); NRBC ABSOLUTE 0.00 K/mm3 (0.00-0.02); NRBC Auto 0.0 /100 WBC (0.0-0.2); Platelet Count 211 K/mm3 (150-400); RDW Coefficient Variation 14.4 % (11.7-14.2); RDW Standard Deviation 50.8 fL (35.1-46.3)
[2024-09-22 07:07] LABS: Anion Gap 9.0 mmol/L (3-11); Blood Urea Nitrogen 47.0 mg/dL (8-24); CO2, Blood 22.0 mmol/L (21-32); Calcium, Blood 8.1 mg/dL (8.5-10.1); Chloride, Blood 105.0 mmol/L (98-108); Creatinine, Blood 1.51 mg/dL (0.60-1.20); Glucose, Blood 158.0 mg/dL (70-99); Potassium, Blood 4.2 mmol/L (3.5-5.5); Sodium, Blood 132.0 mmol/L (136-145)
[2024-09-22] MEDS ORDERED: NS 500 ML IV SCH (10:15)
[2024-09-22] MEDS ORDERED: Magnesium Hydroxide Conc 10 ML UDC PO PRN (14:10)
--- NOTE | 2024-09-22 18:28 | NUR ---
SHIFT SUMMARY PT CONT LEVEL OF CARE. PT NOTED TO A&O TO SELF, PLACE, TIME. PT CONT TO HAVE CONFUSION AT TIMES. PT NOTED TO HAVE A COG EVAL THIS SHIFT AND SCORED AN 8. PT HGB NOTED TO BE 6.8 AND PT RECEIVED 1 UNIT OF PRBC. PT CONT TO UTILIZE MUJICA WHICH IS PATENT AND DRAINING YELLOW URINE. PT DID HAVE A SMALL LOOSE BM THIS SHIFT.
[2024-09-23 05:08] LABS: BASOPHILS ABSOLUTE AUTO 0.01 K/mm3 (0.00-0.23); BASOPHILS PERCENT AUTO 0 % (0-2); EOSINOPHILS ABSOLUTE AUTO 0.22 K/mm3 (0.00-0.68); EOSINOPHILS PERCENT AUTO 4 % (0-6); Hematocrit 27.0 % (37.0-53.0); Hemoglobin 8.8 g/dL (13.5-17.5); IMMATURE GRAN ABSOLUTE AUTO 0.04 K/mm3 (0.00-0.10); IMMATURE GRAN PERCENT AUTO 1 % (0-1); LYMPHOCYTES ABSOLUTE AUTO 0.63 K/mm3 (0.84-5.20); LYMPHOCYTES PERCENT AUTO 11 % (21-46); MONOCYTES ABSOLUTE AUTO 0.94 K/mm3 (0.16-1.47); MONOCYTES PERCENT AUTO 17 % (4-13); Mean Corpuscular HGB Conc 32.6 g/dL (31.5-36.5); Mean Corpuscular Volume 95 fL (80-100); NEUTROPHILS ABSOLUTE AUTO 3.87 K/mm3 (1.96-9.15); NEUTROPHILS PERCENT AUTO 68 % (41-73); NRBC ABSOLUTE 0.00 K/mm3 (0.00-0.02); NRBC Auto 0.0 /100 WBC (0.0-0.2); Platelet Count 236 K/mm3 (150-400); RDW Coefficient Variation 15.0 % (11.7-14.2); RDW Standard Deviation 53.0 fL (35.1-46.3)
[2024-09-23 05:26] LABS: Anion Gap 8.0 mmol/L (3-11); Blood Urea Nitrogen 41.0 mg/dL (8-24); CO2, Blood 24.0 mmol/L (21-32); Calcium, Blood 8.4 mg/dL (8.5-10.1); Chloride, Blood 106.0 mmol/L (98-108); Creatinine, Blood 1.3 mg/dL (0.60-1.20); Glucose, Blood 79.0 mg/dL (70-99); Potassium, Blood 4.3 mmol/L (3.5-5.5); Sodium, Blood 134.0 mmol/L (136-145)
[2024-09-23 05:58] VITALS: BP 149/55
--- NOTE | 2024-09-23 06:30 | NUR ---
Shift Summary Pt had 2 incontinent medium sized BM this shift. He remains fairly confused, convinced he is going to walk over to the motel across the street very soon. Re-oriented and educated that the MD has not medically cleared for discharge, pt seems to understand temporarily. No attempts to get OOB. Del Cid cath in place, patent. Pt is AOx3-4, he has some confusion about his current situation. Pt c/o leg pain, medicated per emar.
[2024-09-23 07:38] VITALS: BP 140/56
[2024-09-23] MEDS ORDERED: Insulin Human Lispro 100 Units/ML 3ML Syringe SC SCH (11:30)
[2024-09-23 15:56] VITALS: BP 136/54
--- NOTE | 2024-09-23 18:01 | NUR ---
SHIFT SUMMARY: NO NEW ACUTE CHANGES DURING THIS SHIFT. PLAN OF CARE ONGOING AT THIS TIME, WILL CONTINUE TO MONITOR.
[2024-09-23 20:14] VITALS: BP 136/67
[2024-09-23] MEDS ORDERED: Insulin Human Lispro 100 Units/ML 3ML Syringe SC ONE (21:30)
[2024-09-24 04:40] VITALS: BP 148/57
[2024-09-24 05:10] LABS: BASOPHILS ABSOLUTE AUTO 0.04 K/mm3 (0.00-0.23); BASOPHILS PERCENT AUTO 1 % (0-2); EOSINOPHILS ABSOLUTE AUTO 0.16 K/mm3 (0.00-0.68); EOSINOPHILS PERCENT AUTO 3 % (0-6); Hematocrit 26.2 % (37.0-53.0); Hemoglobin 8.6 g/dL (13.5-17.5); IMMATURE GRAN ABSOLUTE AUTO 0.02 K/mm3 (0.00-0.10); IMMATURE GRAN PERCENT AUTO 0 % (0-1); LYMPHOCYTES ABSOLUTE AUTO 0.61 K/mm3 (0.84-5.20); LYMPHOCYTES PERCENT AUTO 13 % (21-46); MONOCYTES ABSOLUTE AUTO 0.86 K/mm3 (0.16-1.47); MONOCYTES PERCENT AUTO 18 % (4-13); Mean Corpuscular HGB Conc 32.8 g/dL (31.5-36.5); Mean Corpuscular Volume 96 fL (80-100); NEUTROPHILS ABSOLUTE AUTO 3.19 K/mm3 (1.96-9.15); NEUTROPHILS PERCENT AUTO 65 % (41-73); NRBC ABSOLUTE 0.00 K/mm3 (0.00-0.02); NRBC Auto 0.0 /100 WBC (0.0-0.2); Platelet Count 279 K/mm3 (150-400); RDW Coefficient Variation 14.7 % (11.7-14.2); RDW Standard Deviation 51.5 fL (35.1-46.3)
[2024-09-24 05:34] LABS: Anion Gap 6.0 mmol/L (3-11); Blood Urea Nitrogen 34.0 mg/dL (8-24); CO2, Blood 27.0 mmol/L (21-32); Calcium, Blood 8.5 mg/dL (8.5-10.1); Chloride, Blood 105.0 mmol/L (98-108); Creatinine, Blood 1.2 mg/dL (0.60-1.20); Glucose, Blood 143.0 mg/dL (70-99); Potassium, Blood 4.6 mmol/L (3.5-5.5); Sodium, Blood 133.0 mmol/L (136-145)
--- NOTE | 2024-09-24 05:44 | NUR ---
Shift Summary No attempts OOB, although pt did talk about getting up and 'going places' one time but he didn't take any action and I was able to reorient him to his situation. Pt AOx2-3, forgetful and pleasantly confused. He rested comfortably t/o most of the shift. Del Cid catheter in place, patent. Pt c/o of some leg pain but says it's not bad tonight.
[2024-09-24 08:19] VITALS: BP 161/64
[2024-09-24 15:50] VITALS: BP 133/58
[2024-09-24 19:59] VITALS: BP 146/66
[2024-09-25 03:34] VITALS: BP 150/55
[2024-09-25 05:07] LABS: Hematocrit 26.7 % (37.0-53.0); Hemoglobin 8.5 g/dL (13.5-17.5)
--- NOTE | 2024-09-25 05:46 | NUR ---
SUMMARY: PT AOX3-4. OCCASIONAL CONFUSION. ABLE TO HELP TURN SELF IN BED. INCONTINENT OF STOOL, MUJICA IN PLACE DRAINING APPROPRIATELY. NO ATTEMPTS TO GET OUT OF BED. PERIODS OF UNINTERRUPTED SLEEP THROUGHOUT THE NIGHT. CALL LIGHT WITHIN REACH, BED ALARM ON, AND BED IN LOW POSITION.
[2024-09-25 08:18] VITALS: BP 161/59
[2024-09-25 14:43] VITALS: BP 139/55
--- NOTE | 2024-09-25 17:44 | NUR ---
SHIFT SUMMARY PATIENT IN BED THIS SHIFT. MUJICA IN PLACE DRAINING YELLOW URINE TO GRAVITY. INCONTINENT BM TODAY. PATIENT IN PLEASANT MOOD, JOKING WITH STAFF. DAUGHTER IN CHART CALLED FOR UPDATE, THIS WAS GIVEN. NOT ALWAYS ABLE TO MAKE NEEDS KNOWN. CALL LIGHT IN REACH.
[2024-09-25 19:58] VITALS: BP 132/88
[2024-09-26 04:21] VITALS: BP 170/69
--- NOTE | 2024-09-26 04:51 | NUR ---
SHIFT SUMMARY: PT AOX1, 11/12 ON COG EVAL, IS ABLE TO MAKE UP FOR DEFICIT, SPEAKING CONFIDENTLY AND SEEMS A LOT MORE WITH IT THAN HE IS. ABLE TO MAKE NEEDS KNOWN BUT DOESNT CALL APPROPRIATELY. INCONT OF BOWEL AND STOOL REQUIRING TWO CHANGES THIS SHIFT. CAN RESPOND WITH NEEDS IF ASKED DIRECTLY. TOLERATING MEDICATIONS WELL AND HAS BEEN PLEASANT THROUGH OUT THE SHIFT. NO ACUTE OVERNIGHT EVENTS. PT IN BED RESTING, BED IN LOWEST POSITION, CALL LIGHT IN REACH. CONTINUING CARE.
[2024-09-26 05:53] LABS: BASOPHILS ABSOLUTE AUTO 0.03 K/mm3 (0.00-0.23); BASOPHILS PERCENT AUTO 1 % (0-2); EOSINOPHILS ABSOLUTE AUTO 0.23 K/mm3 (0.00-0.68); EOSINOPHILS PERCENT AUTO 4 % (0-6); Hematocrit 27.8 % (37.0-53.0); Hemoglobin 9.0 g/dL (13.5-17.5); IMMATURE GRAN ABSOLUTE AUTO 0.02 K/mm3 (0.00-0.10); IMMATURE GRAN PERCENT AUTO 0 % (0-1); LYMPHOCYTES ABSOLUTE AUTO 0.80 K/mm3 (0.84-5.20); LYMPHOCYTES PERCENT AUTO 14 % (21-46); MONOCYTES ABSOLUTE AUTO 0.82 K/mm3 (0.16-1.47); MONOCYTES PERCENT AUTO 15 % (4-13); Mean Corpuscular HGB Conc 32.4 g/dL (31.5-36.5); Mean Corpuscular Volume 96 fL (80-100); NEUTROPHILS ABSOLUTE AUTO 3.77 K/mm3 (1.96-9.15); NEUTROPHILS PERCENT AUTO 66 % (41-73); NRBC ABSOLUTE 0.00 K/mm3 (0.00-0.02); NRBC Auto 0.0 /100 WBC (0.0-0.2); Platelet Count 334 K/mm3 (150-400); RDW Coefficient Variation 14.3 % (11.7-14.2); RDW Standard Deviation 50.3 fL (35.1-46.3)
[2024-09-26 06:10] LABS: Anion Gap 8.0 mmol/L (3-11); Blood Urea Nitrogen 33.0 mg/dL (8-24); CO2, Blood 25.0 mmol/L (21-32); Calcium, Blood 8.5 mg/dL (8.5-10.1); Chloride, Blood 108.0 mmol/L (98-108); Creatinine, Blood 1.26 mg/dL (0.60-1.20); Glucose, Blood 57.0 mg/dL (70-99); Potassium, Blood 4.3 mmol/L (3.5-5.5); Sodium, Blood 137.0 mmol/L (136-145)
[2024-09-26 07:37] VITALS: BP 133/64
--- NOTE | 2024-09-26 08:21 | NUR ---
ATTEMPTED EDUCATION- BG 39 THIS AM. PT PROVIDED OJ WITH 4 SUGAR PKTS. HE INSISTS HE NEEDS GLUCOSE TABS. 30 MIN POST OJ BG IS 89. PT REQUESTING APPLE JUICE. ATTEMPTED EDUCATION, PT STATES HE KNOWS EVERYTHING HE NEEDS TO AFTER 70 YEARS (PT HERE FOR DKA).
[2024-09-26 15:52] VITALS: BP 159/56
--- NOTE | 2024-09-26 20:08 | NUR ---
SHIFT SUMMARY- PT HAS HAD NO ACUTE CHANGE SINCE THE START OF THE SHIFT, HIS BG WAS LOW TODAY IN THE AM (MD AWARE) BUT IT WAS HIGH THIS EVENING, MEDICATED PER MAY. NIGHT RN AWARE THE LONG ACTING SHOULD BE GIVEN TONIGHT. PT HAS AN ORDER FOR AN ADDITIONAL BG CHECK AT 0200, THE PT BG WAS LOW THIS AM. PT LAYING IN BED, CALL LIGHT IN REACH, INCONTINENT OF STOOL ATTENDS IN PLACE MUJICA PATENT AND DRAINING, NO S&S OF DISTRESS NOTED.
[2024-09-26 20:23] VITALS: BP 128/60
[2024-09-26] MEDS ORDERED: Insulin Glargine-Yfgn 100 Unit/mL 3 ML SYR SC SCH (21:00)
[2024-09-27 04:56] VITALS: BP 154/59
[2024-09-27 05:44] LABS: BASOPHILS ABSOLUTE AUTO 0.03 K/mm3 (0.00-0.23); BASOPHILS PERCENT AUTO 1 % (0-2); EOSINOPHILS ABSOLUTE AUTO 0.24 K/mm3 (0.00-0.68); EOSINOPHILS PERCENT AUTO 4 % (0-6); Hematocrit 24.9 % (37.0-53.0); Hemoglobin 8.0 g/dL (13.5-17.5); IMMATURE GRAN ABSOLUTE AUTO 0.03 K/mm3 (0.00-0.10); IMMATURE GRAN PERCENT AUTO 1 % (0-1); LYMPHOCYTES ABSOLUTE AUTO 0.67 K/mm3 (0.84-5.20); LYMPHOCYTES PERCENT AUTO 12 % (21-46); MONOCYTES ABSOLUTE AUTO 0.79 K/mm3 (0.16-1.47); MONOCYTES PERCENT AUTO 14 % (4-13); Mean Corpuscular HGB Conc 32.1 g/dL (31.5-36.5); Mean Corpuscular Volume 95 fL (80-100); NEUTROPHILS ABSOLUTE AUTO 4.09 K/mm3 (1.96-9.15); NEUTROPHILS PERCENT AUTO 70 % (41-73); NRBC ABSOLUTE 0.00 K/mm3 (0.00-0.02); NRBC Auto 0.0 /100 WBC (0.0-0.2); Platelet Count 311 K/mm3 (150-400); RDW Coefficient Variation 14.1 % (11.7-14.2); RDW Standard Deviation 49.1 fL (35.1-46.3)
[2024-09-27 07:43] VITALS: BP 157/52
--- NOTE | 2024-09-27 07:58 | NUR ---
PT ALERT TO SELF, SLEPT T/O GLORIA NIGHT. AWOKEN EASILY TO NAME AND AWOKEN CONFUSED AT TIMES. DRESSINGS WERE CHANGED TO LLE.
[2024-09-27 11:07] LABS: Anion Gap 11.0 mmol/L (3-11); Blood Urea Nitrogen 32.0 mg/dL (8-24); CO2, Blood 26.0 mmol/L (21-32); Calcium, Blood 8.4 mg/dL (8.5-10.1); Chloride, Blood 103.0 mmol/L (98-108); Creatinine, Blood 1.2 mg/dL (0.60-1.20); Glucose, Blood 161.0 mg/dL (70-99); Potassium, Blood 4.7 mmol/L (3.5-5.5); Sodium, Blood 135.0 mmol/L (136-145)
--- NOTE | 2024-09-27 16:34 | NUR ---
SHIFT SUMMARY/DISCHARGE 1600 TRANSPORT ARRIVED. IV'S DC'D BY THIS RN WITHOUT EVENTS. PT TRANSFERRED TO [facility] VIA WHEELCHAIR TRANSFER. PT TRANSFERRED TO WHEELCHAIR VIA 2 PERSON ASSIST. MUJICA INTACT AND DRAINING TO GRAVITY, VOIDED 800CC LAST OUTPUT. BELONGINGS WENT WITH PT.
== END 2024-09-27 16:15 | DRG 638 ==
LOC: ER 14:37 → ICUE 17:29 → PCU 17:29 → ICUE 19:42 → PCU 09-19 01:05 → MEDS 09-21 00:43
PROVIDERS: Emergency Medicine; Family Medicine; Student in an Organized Health Care Education/Training Program; ADMIT Internal Medicine
DX: E10.10 Type 1 diabetes mellitus with ketoacidosis without coma (principal); E87.1 Hypo-osmolality and hyponatremia; M62.82 Rhabdomyolysis; T85.694A Other mechanical complication of insulin pump, initial encounter; M84.48XA Pathological fracture, other site, initial encounter for fracture; I48.0 Paroxysmal atrial fibrillation; E10.649 Type 1 diabetes mellitus with hypoglycemia without coma; E87.5 Hyperkalemia; E10.22 Type 1 diabetes mellitus with diabetic chronic kidney disease; Z66 Do not resuscitate; N18.30 Chronic kidney disease, stage 3 unspecified; N40.1 Benign prostatic hyperplasia with lower urinary tract symptoms; R41.89 Other symptoms and signs involving cognitive functions and awareness; Y82.8 Other medical devices associated with adverse incidents; E78.5 Hyperlipidemia, unspecified; I12.9 Hypertensive chronic kidney disease with stage 1 through stage 4 chronic kidney disease, or unspecified chronic kidney disease; I25.10 Atherosclerotic heart disease of native coronary artery without angina pectoris; F32.A Depression, unspecified; I95.9 Hypotension, unspecified; M47.812 Spondylosis without myelopathy or radiculopathy, cervical region; K57.30 Diverticulosis of large intestine without perforation or abscess without bleeding; K64.9 Unspecified hemorrhoids; D50.0 Iron deficiency anemia secondary to blood loss (chronic); S20.229A Contusion of unspecified back wall of thorax, initial encounter; W18.39XA Other fall on same level, initial encounter; Y92.007 Garden or yard of unspecified non-institutional (private) residence as the place of occurrence of the external cause; K59.00 Constipation, unspecified; R19.5 Other fecal abnormalities; R22.43 Localized swelling, mass and lump, lower limb, bilateral; R33.8 Other retention of urine; Z60.2 Problems related to living alone; Z88.8 Allergy status to other drugs, medicaments and biological substances; I25.2 Old myocardial infarction; Z79.4 Long term (current) use of insulin; Z79.82 Long term (current) use of aspirin; Z85.51 Personal history of malignant neoplasm of bladder; Z86.73 Personal history of transient ischemic attack (TIA), and cerebral infarction without residual deficits
CPT/HCPCS: 36415; 36430; 51701; 51702; 70450; 71260; 72125; 74177; 80048; 80053; 80162; 80320; 82010; 82140; 82272; 82550; 82607; 82728; 82803; 82947; 83540; 83550; 83605; 83735; 83874; 84100; 85014; 85018; 85025; 85520; 85610; 85730; 86850; 86900; 86901; 86923; 87040; 93005; 93010; 93306; 96374-59; 96375; 97110; 97129; 97130; 97161; 97166; 97530; 97535; 99285-25; A9270; J0612; J1160; J1644; J1815; J1938; J2470; J2704; J7030; J7042; J7120; P9016; Q9967

== ENCOUNTER 2024-10-09 15:20 | Inpatient (IN) | payer MEDICARE ==
[~2024-10-09] VITALS: Ht 172.7 cm; Wt 75.4 kg
[~2024-10-09 15:20] MED LIST changes: +TAMSULOSIN HCL0.4 M1 PO
[2024-10-09] MEDS ORDERED: Metoprolol Tartrate 1 MG/ML 5 ML VIAL IV ONE ×3 (15:40→23:00)
[2024-10-09 15:51] LABS: Source, Urine Clean Catch
[2024-10-09 16:11] LABS: BASOPHILS ABSOLUTE AUTO 0.03 K/mm3 (0.00-0.23); BASOPHILS PERCENT AUTO 0 % (0-2); EOSINOPHILS ABSOLUTE AUTO 0.02 K/mm3 (0.00-0.68); EOSINOPHILS PERCENT AUTO 0 % (0-6); Hematocrit 30.1 % (37.0-53.0); Hemoglobin 9.6 g/dL (13.5-17.5); IMMATURE GRAN ABSOLUTE AUTO 0.06 K/mm3 (0.00-0.10); IMMATURE GRAN PERCENT AUTO 1 % (0-1); LYMPHOCYTES ABSOLUTE AUTO 0.60 K/mm3 (0.84-5.20); LYMPHOCYTES PERCENT AUTO 5 % (21-46); MONOCYTES ABSOLUTE AUTO 1.41 K/mm3 (0.16-1.47); MONOCYTES PERCENT AUTO 12 % (4-13); Mean Corpuscular HGB Conc 31.9 g/dL (31.5-36.5); Mean Corpuscular Volume 95 fL (80-100); NEUTROPHILS ABSOLUTE AUTO 9.49 K/mm3 (1.96-9.15); NEUTROPHILS PERCENT AUTO 82 % (41-73); NRBC ABSOLUTE 0.00 K/mm3 (0.00-0.02); NRBC Auto 0.0 /100 WBC (0.0-0.2); Platelet Count 309 K/mm3 (150-400); RDW Coefficient Variation 13.9 % (11.7-14.2); RDW Standard Deviation 48.3 fL (35.1-46.3)
[2024-10-09 16:16] LABS: Alanine Aminotransfer (ALT/SGP 12.0 U/L (12-78); Albumin, Blood 1.9 g/dL (3.4-5.0); Albumin/Globulin Ratio 0.5 (0.8-1.8); Anion Gap 7.0 mmol/L (3-11); Aspartate Aminotrans (AST/SGOT 26.0 U/L (12-37); Bilirubin, Total 0.9 mg/dL (0.1-1.0); Blood Urea Nitrogen 18.0 mg/dL (8-24); CO2, Blood 26.0 mmol/L (21-32); Calcium, Blood 8.2 mg/dL (8.5-10.1); Chloride, Blood 108.0 mmol/L (98-108); Creatinine, Blood 1.08 mg/dL (0.60-1.20); Globulin, Blood 3.9 g/dL (2.2-4.0); Glucose, Blood 71.0 mg/dL (70-99); Potassium, Blood 4.2 mmol/L (3.5-5.5); Sodium, Blood 137.0 mmol/L (136-145); Total Protein, Blood 5.8 g/dL (6.4-8.2)
[2024-10-09] MEDS ORDERED: Piperacillin/Tazobactam Sod 4.5 GM in NS 100 ML IV ONE (16:20)
[2024-10-09 16:25] LABS: Bilirubin, Urine Neg (Neg); Color, Urine Yellow (P-Yellow); Glucose Qualitative, Urine Neg (Neg); Ketones, Urine Neg (Neg); Leukocyte Esterase, Urine 3+ (Neg); Protein, Urine 3+ (Neg); Specific Gravity, Urine 1.010 (1.003-1.022); Urobilinogen, Urine 2+ (Normal)
[2024-10-09] MEDS ORDERED: PANT40 PO (17:04)
[2024-10-09] MEDS ORDERED: FINA5 PO (17:04)
[2024-10-09] MEDS ORDERED: MONT10T PO (17:04)
[2024-10-09] MEDS ORDERED: GLUCAGON SC (17:05)
[2024-10-09] MEDS ORDERED: METO25 PO (17:05)
[2024-10-09 17:27] LABS: White Blood Cells, Urine TNTC /hpf (0-5)
[2024-10-09 17:28] LABS: Red Blood Cells, Urine 0-2 /hpf (0-2); Yeast/Fungi Urine Many /hpf
[2024-10-09] MEDS ORDERED: HUMALOG KW100 UNIT/1 SC (17:41)
[2024-10-09] MEDS ORDERED: BASAGLAR K100 UNIT/3 SC (17:42)
[2024-10-09 17:44] LABS: Influenza A, PCR NEGATIVE (NEGATIVE); Influenza B, PCR NEGATIVE (NEGATIVE); Resp Syncytial Virus, PCR NEGATIVE (NEGATIVE); SARS-Cov-2 (COVID-19) PCR, MMC NEGATIVE (NEGATIVE)
[2024-10-09] MEDS ORDERED: NS 1,000 ML IV SCH (18:00)
[2024-10-09] MEDS ORDERED: Enoxaparin 40 MG/0.4 ML SYR SC SCH (18:00)
[2024-10-09] MEDS ORDERED: Ondansetron HCl 2 MG / ML 2ML Vial IV PRN (18:00)
[2024-10-09] MEDS ORDERED: Vancomycin (Pharmacy Consult) IV SCH (18:00)
[2024-10-09] MEDS ORDERED: Albumin (Human) 25gm/100ml 100 ML IV ONE (18:10)
[2024-10-09 20:55] VITALS: BP 126/111
--- NOTE | 2024-10-09 21:33 | NUR ---
ADMIT NOTE REPORT RECIVED BY THIS RN FROM VIDEO EFFECTS EDITOR IRVING @ APPROX 2026 PT ARRIVED @ APPROX 2039, PT WAS SLID OVER BY MEDICAL STAFF, PT COMMUNICATING NEEDS, PT IS ALERT. LEFT ARM SWOLLEN, PT ABLE TO STATE NAME AND , PT UNABLE TO STATE WHERE HE IS. VSS, HR ELEVATED/ CORE MOUNTER CALLED MD/ NEW ORDERS PLACED.
[2024-10-09 22:00] VITALS: BP 129/96
[2024-10-09 22:30] VITALS: BP 137/72
[2024-10-09 23:07] VITALS: BP 147/90
[2024-10-10] VITALS (10 sets, daily range): BP systolic 146–176; BP diastolic 59–86
[2024-10-10] MEDS ORDERED: Cefepime HCl 1,000 MG in NS 100 ML IV SCH
[2024-10-10 00:01] LABS: Source, Urine Foley catheter
[2024-10-10 00:05] LABS: Bilirubin, Urine Neg (Neg); Glucose Qualitative, Urine Neg (Neg); Ketones, Urine Neg (Neg); Leukocyte Esterase, Urine 3+ (Neg); Protein, Urine 3+ (Neg); Specific Gravity, Urine 1.020 (1.003-1.022); Urobilinogen, Urine 1+ (Normal)
[2024-10-10 00:13] LABS: Color, Urine Yellow (P-Yellow); White Blood Cells, Urine TNTC /hpf (0-5)
[2024-10-10 03:44] LABS: BASOPHILS ABSOLUTE AUTO 0.02 K/mm3 (0.00-0.23); BASOPHILS PERCENT AUTO 0 % (0-2); EOSINOPHILS ABSOLUTE AUTO 0.10 K/mm3 (0.00-0.68); EOSINOPHILS PERCENT AUTO 1 % (0-6); Hematocrit 26.5 % (37.0-53.0); Hemoglobin 8.5 g/dL (13.5-17.5); IMMATURE GRAN ABSOLUTE AUTO 0.05 K/mm3 (0.00-0.10); IMMATURE GRAN PERCENT AUTO 1 % (0-1); LYMPHOCYTES ABSOLUTE AUTO 0.48 K/mm3 (0.84-5.20); LYMPHOCYTES PERCENT AUTO 5 % (21-46); MONOCYTES ABSOLUTE AUTO 1.20 K/mm3 (0.16-1.47); MONOCYTES PERCENT AUTO 11 % (4-13); Mean Corpuscular HGB Conc 32.1 g/dL (31.5-36.5); Mean Corpuscular Volume 96 fL (80-100); NEUTROPHILS ABSOLUTE AUTO 8.88 K/mm3 (1.96-9.15); NEUTROPHILS PERCENT AUTO 83 % (41-73); NRBC ABSOLUTE 0.00 K/mm3 (0.00-0.02); NRBC Auto 0.0 /100 WBC (0.0-0.2); Platelet Count 235 K/mm3 (150-400); RDW Coefficient Variation 14.0 % (11.7-14.2); RDW Standard Deviation 49.3 fL (35.1-46.3)
[2024-10-10 04:02] LABS: Alanine Aminotransfer (ALT/SGP 12.0 U/L (12-78); Albumin, Blood 2.1 g/dL (3.4-5.0); Albumin/Globulin Ratio 0.6 (0.8-1.8); Anion Gap 8.0 mmol/L (3-11); Aspartate Aminotrans (AST/SGOT 16.0 U/L (12-37); Bilirubin, Total 1.0 mg/dL (0.1-1.0); Blood Urea Nitrogen 21.0 mg/dL (8-24); CO2, Blood 26.0 mmol/L (21-32); Calcium, Blood 8.1 mg/dL (8.5-10.1); Chloride, Blood 110.0 mmol/L (98-108); Creatinine, Blood 1.12 mg/dL (0.60-1.20); Globulin, Blood 3.3 g/dL (2.2-4.0); Glucose, Blood 103.0 mg/dL (70-99); Potassium, Blood 4.1 mmol/L (3.5-5.5); Sodium, Blood 140.0 mmol/L (136-145); Total Protein, Blood 5.4 g/dL (6.4-8.2)
--- NOTE | 2024-10-10 06:10 | NUR ---
SHIFT SUMMARY PT IS SOMNOLENT &O X1, ABLE TO MAKE NEEDS KNOWN, PT NOT MOVING LEFT ARM/ PT STATES IT HURTS TO MOVE AND TO NOT TOUCH IT/ PT ABLE TO SQUEEZE THIS RNS FINGERS WITH LEFT HAND/ MOVING ALL OTHER EXTREMITIES WITH PURPOSE, STAFF ASSISTING PT WITH REPOSITIONING, BEDREST AT THIS TIME WITH BED ALARM ACTIVE, Q2 REPOSITIONING BY MEDICAL STAFF, OBEYS COMMANDS INTERMITENTLY. CONTINUOUS SPO2, SPO2 GREATER 90% ON RA, LUNGS SOUND DIMINISHED T/O, NO SIGNS OF RESPIRATORY DISTRESS. CONTINUOUS TELE MONITORING, CONVERTED TO SINUS 70 S @ APPROX 0300 FROM AFIB 110-140 S , PULSES PRESENT T/O, PT DENEIS CHEST P/P T/O THIS SHIFT, BP STABLE WITH MAP GREATER THAN 65. 2 LOPRESSOR PUSHES GIVEN ON THIS UNIT AND 1 GIVEN IN THE ER, DIGOXIN PUSHES GIVEN X1. BOWEL TONES PRESENT IN ALL 4Q. CHRONIC MUJICA CATH, MUJICA REPLACED ON THIS UNIT WITH 16 FR WITH 30MLS IN THE [place] PER PT RECORDS FROM [facility]. BED LOWEST POSITION, CALL LIGHT IN REACH, AWAITING TO GIVE REPORT TO ONCOMING RN.
[2024-10-10] MEDS ORDERED: Insulin Human Lispro 100 Units/ML 3ML Syringe SC SCH (07:30)
--- NOTE | 2024-10-10 12:37 | NUR ---
UPDATE: PT SLEEPING OFTEN T/OUT MORNING, KENAITZE BUT WAKES TO STAFF IN ROOM, ANSWERS QUESTIONS MINIMALLY W/ SOFT, MUMBLED SPEECH, ORIENTED TO SELF, CITY, SOME SITUATION. PT DENIES SOB, O2 SATS >93% ON RA. PT DENIES CP, SR ON MONITOR. PROVIDER NOTIFIED RE: HTN, NEW ORDERS PLACED AND PT MEDICATED PER EMAR. PT HAS STARTED HAVING OCCASIONAL PVCs W/BRADYCARDIA FOR APPROX 12 SEC AFTER W/RATE RETURNING TO 60s, PROVIDER HAS BEEN NOTIFIED W/PLANS TO REVIEW CHART AND LABS. CHRONIC INDWELLING MUJICA PATENT, DRAINING XAVIER COLORED URINE TO GRAVITY, CATH CARE COMPLETED THIS SHIFT. ORAL CARE PERFORMED, PT REPOSITIONED. CALL LIGHT IN REACH.
--- NOTE | 2024-10-10 17:22 | NUR ---
SHIFT SUMMARY: PT SLEEPS MOST OF THE DAY, WAKES EASILY TO STAFF BUT FALLS BACK TO SLEEP QUICKLY. PT ORIENTED TO SELF AND SOME SITUATION, WAS ABLE TO [place] THIS AM BUT THEN THOUGHT HE WAS IN [place] THIS EVENING. PT REPOSITIONED T/OUT THE DAY, ALL EXTREMITIES MOVING WELL EXCEPT FOR STIFFNESS IN LUE WHICH PT STATES IS PAINFUL W/MOVEMENT. PT DENIES SOB, O2 SATS >93% ON RA. PT DENIES CP, SR ON MONITOR MOSTLY 60s-70s, IN ADDITION TO EVENTS STATED IN PREVIOUS NOTE PT ALSO HAD APPROX 5 MIN RUN OF TRIGEMINY AND A 6 SECOND RUN OF SVT IN 140s. CHRONIC MUJICA PATENT, DRAINING XAVIER COLORED URINE TO GRAVITY. SCABS TO LLE ARE TAE.
[2024-10-10] MEDS ORDERED: Insulin Glargine-Yfgn 100 Unit/mL 3 ML SYR SC SCH (21:00)
[2024-10-10] MEDS ORDERED: HydrALAZINE HCl 20 MG / ML 1ML Vial IV PRN (22:50)
[2024-10-11 03:39] VITALS: BP 157/61
[2024-10-11 04:29] LABS: BASOPHILS ABSOLUTE AUTO 0.04 K/mm3 (0.00-0.23); BASOPHILS PERCENT AUTO 0 % (0-2); EOSINOPHILS ABSOLUTE AUTO 0.13 K/mm3 (0.00-0.68); EOSINOPHILS PERCENT AUTO 1 % (0-6); Hematocrit 26.4 % (37.0-53.0); Hemoglobin 8.5 g/dL (13.5-17.5); IMMATURE GRAN ABSOLUTE AUTO 0.04 K/mm3 (0.00-0.10); IMMATURE GRAN PERCENT AUTO 0 % (0-1); LYMPHOCYTES ABSOLUTE AUTO 0.46 K/mm3 (0.84-5.20); LYMPHOCYTES PERCENT AUTO 5 % (21-46); MONOCYTES ABSOLUTE AUTO 0.80 K/mm3 (0.16-1.47); MONOCYTES PERCENT AUTO 8 % (4-13); Mean Corpuscular HGB Conc 32.2 g/dL (31.5-36.5); Mean Corpuscular Volume 96 fL (80-100); NEUTROPHILS ABSOLUTE AUTO 8.24 K/mm3 (1.96-9.15); NEUTROPHILS PERCENT AUTO 85 % (41-73); NRBC ABSOLUTE 0.00 K/mm3 (0.00-0.02); NRBC Auto 0.0 /100 WBC (0.0-0.2); Platelet Count 255 K/mm3 (150-400); RDW Coefficient Variation 13.9 % (11.7-14.2); RDW Standard Deviation 49.1 fL (35.1-46.3)
[2024-10-11 04:47] LABS: Anion Gap 11.0 mmol/L (3-11); Blood Urea Nitrogen 28.0 mg/dL (8-24); CO2, Blood 21.0 mmol/L (21-32); Calcium, Blood 8.4 mg/dL (8.5-10.1); Chloride, Blood 111.0 mmol/L (98-108); Creatinine, Blood 1.15 mg/dL (0.60-1.20); Glucose, Blood 154.0 mg/dL (70-99); Potassium, Blood 4.0 mmol/L (3.5-5.5); Sodium, Blood 139.0 mmol/L (136-145)
--- NOTE | 2024-10-11 06:21 | NUR ---
SHIFT SUMMARY: PT A&OX2 DISORIENTED TO DATE AND SITUATION. HARD OF HEARING AND MUMBLED SPEECH. HTN AND PROVIDER NOTIFIED. PROVIDER ORDERED PRN HYDRALAZINE. HYDRALAZINE GIVEN X1. SBP 150S AFTER MEDICATING. MAINTAINING >92% SPO2 ON RA. CHRONIC MUJICA IN PLACE. DRAINING XAVIER URINE TO GRAVITY. PT HESITANT TO MOVE LUE D/T PAIN. Q2 TURNS COMPLETED. DAILY WEIGHT COMPLETED. PT KEPT NPO WITH Q6 CHEM BG CHECKS. BED IS LOW AND LOCKED. BED ALARM ON. CALL LIGHT WITHIN REACH. WILL CONTINUE PLAN OF CARE TILL REPORT GIVEN TO DAY NURSE
[2024-10-11 07:48] VITALS: BP 158/67
[2024-10-11 16:23] VITALS: BP 140/52
--- NOTE | 2024-10-11 18:10 | NUR ---
Transfer to Medical / End of Shift Pt medical w/ telemetry status. Pt [place]. A&O to self, place, & neighbor who visited this afternoon. Pt difficulty hearing &/or understanding questions, only sometimes answering Qs appropriately. Pt VSS. Spo2 > 92% on RA. Monitor showing SB-SR, HR 50s-60s. Del Cid cath patent & draining dark yellow urine. Pt requiring 2 person assistance for repositioning in bed. Pt requiring assistance w/ meals & tolerating meds whole in applesauce. Report given to accepting medical floor RN assuming care of pt. Pt to be taken to rm 327 w/ belongings.
[2024-10-11 18:19] LABS: Vancomycin, Trough 12.5 ug/mL (5.0-10.0)
[2024-10-11] MEDS ORDERED: NS 250 ML IV PRN (19:45)
[2024-10-11 19:46] VITALS: BP 147/73
[2024-10-11 22:55] VITALS: BP 122/73
--- NOTE | 2024-10-11 23:13 | NUR ---
GOT A CALL FROM [facility] THAT PT CONVERTED FROM SINUS WHITNEY TO AFIB WITH RVR AT A RATE IN THE 130'S. CALLED DR. KUNZ AND HE ORDERED TO GIVE A DOSE OF METOPROLOL 2.5MG IV X 1 NOW AND IF NOT RATE CONTROLLED MAY REPEAT X 1 FOR A TOTAL OF 5MG.
[2024-10-11] MEDS ORDERED: Metoprolol Tartrate 1 MG/ML 5 ML VIAL IV ONE (23:20)
[2024-10-12] MEDS ORDERED: Metoprolol Tartrate 1 MG/ML 5 ML VIAL IV ONE ×2 (01:30→02:35)
[2024-10-12 03:04] VITALS: BP 125/86
--- NOTE | 2024-10-12 03:47 | NUR ---
PT HR CONTINUED TO BE IN THE 130'S-140'S CALLED DR. KUNZ AND INFORMED HIM OF THIS AND HE ORDERED TO GIVE HIM ANOTHER DOSE OF METOPROLOL 5MG IV X 1 DOSE NOW.
--- NOTE | 2024-10-12 04:11 | NUR ---
PT IS STILL SUSTAINING IN THE 130S-140S IN AFIB WITH RVR EVEN AFTER THE 3 DOSES OF METOPROLOL CALLED DR. KUNZ AND INFORMED HIM AND HE STATED THAT HE DONT FEEL THAT PT NEEDS TO MOVE TO THE PCU JUST YET TO BE PUT ON THE DRIP BUT THAT HE WOULD CHECK THE CHART AND PUT ORDERS IN THE CHART
[2024-10-12 05:44] LABS: BASOPHILS ABSOLUTE AUTO 0.04 K/mm3 (0.00-0.23); BASOPHILS PERCENT AUTO 1 % (0-2); EOSINOPHILS ABSOLUTE AUTO 0.20 K/mm3 (0.00-0.68); EOSINOPHILS PERCENT AUTO 3 % (0-6); Hematocrit 29.7 % (37.0-53.0); Hemoglobin 9.4 g/dL (13.5-17.5); IMMATURE GRAN ABSOLUTE AUTO 0.06 K/mm3 (0.00-0.10); IMMATURE GRAN PERCENT AUTO 1 % (0-1); LYMPHOCYTES ABSOLUTE AUTO 0.34 K/mm3 (0.84-5.20); LYMPHOCYTES PERCENT AUTO 5 % (21-46); MONOCYTES ABSOLUTE AUTO 0.54 K/mm3 (0.16-1.47); MONOCYTES PERCENT AUTO 8 % (4-13); Mean Corpuscular HGB Conc 31.6 g/dL (31.5-36.5); Mean Corpuscular Volume 95 fL (80-100); NEUTROPHILS ABSOLUTE AUTO 5.93 K/mm3 (1.96-9.15); NEUTROPHILS PERCENT AUTO 83 % (41-73); NRBC ABSOLUTE 0.00 K/mm3 (0.00-0.02); NRBC Auto 0.0 /100 WBC (0.0-0.2); Platelet Count 325 K/mm3 (150-400); RDW Coefficient Variation 14.3 % (11.7-14.2); RDW Standard Deviation 49.2 fL (35.1-46.3)
--- NOTE | 2024-10-12 05:58 | NUR ---
SHIFT SUMMARY PT ALERT ORIENTED TO SELF ONLY BUT VERY CONFUSED UNABLE TO ANSWER SIMPLE QUESTIONS. HES FROM [facility] AND WAS ADMITTED TO US ON 10/09. REMAINS ON CEFEPIME AND VANCO ORDERED FOR UTI SEPSIS. MUJICA CATH INTACT HE HAS A CHRONIC F/C. TAKES HIS MEDS WHOLE IN APPLESAUCE. HES VERY [place] AND HAS A HARD TIME UNDERSTANDING YOU. FS DONE AC AND HS WAS 336 AND HE GOT COVERAGE ORDERED. HE HAS A DARK AREA TO HIS RT HEEL BOOTIES ARE INTACT. HE ALSO HAS ABRASIONS TO HIS LT KNEE AND LT CALF WITH DRESSINGS INTACT. LT ARM IS ALSO RED AND SWOLLEN. HIS IVS TO HIS RT ARM INFILTRATED AND HIS ARM GOT RED AND SWOLLEN. BOTH IVS WERE REMOVED. AT AROUND 0000 GOT A CALL FROM Zoondy THAT PT CONVERTED TO AFIB WITH RVR AT A RATE IN THE 140'S. A TOTAL OF 10MG OF IV METOPROLOL WAS GIVEN WITH NO RELIEF. AFTER THAT METOPROLOL 25MG PO WAS GIVEN. HE STILL REMAINS IN THE 110-120'S. RESTING IN BED AT THIS TIME WITH CALL LIGHT IN REACH
[2024-10-12 06:06] LABS: Anion Gap 12.0 mmol/L (3-11); Blood Urea Nitrogen 43.0 mg/dL (8-24); CO2, Blood 20.0 mmol/L (21-32); Calcium, Blood 8.5 mg/dL (8.5-10.1); Chloride, Blood 109.0 mmol/L (98-108); Creatinine, Blood 1.32 mg/dL (0.60-1.20); Glucose, Blood 365.0 mg/dL (70-99); Magnesium, Blood 2.1 mg/dL (1.6-2.4); Potassium, Blood 4.2 mmol/L (3.5-5.5); Sodium, Blood 137.0 mmol/L (136-145)
[2024-10-12] MEDS ORDERED: Insulin Human Lispro 100 Units/ML 3ML Syringe SC ONE (06:45)
[2024-10-12 07:36] VITALS: BP 124/74
[2024-10-12] MEDS ORDERED: Insulin Human Lispro 100 Units/ML 3ML Syringe SC STA (09:23)
--- NOTE | 2024-10-12 09:30 | NUR ---
Call to Dr. Clay regarding patient CBG 384 and recorded HR 29 before converting back to A-fib at 113. Order for 1x dose of insulin obtained and administered. No other orders at this time.
[2024-10-12] MEDS ORDERED: Insulin Glargine-Yfgn 100 Unit/mL 3 ML SYR SC STA (09:43)
[2024-10-12] MEDS ORDERED: NS 1,000 ML IV SCH (11:00)
--- NOTE | 2024-10-12 12:27 | NUR ---
Call to Dr. Clay regarding CBG 410. New orders received.
[2024-10-12 12:36] LABS: Anion Gap 9.0 mmol/L (3-11); Blood Urea Nitrogen 40.0 mg/dL (8-24); CO2, Blood 24.0 mmol/L (21-32); Calcium, Blood 8.8 mg/dL (8.5-10.1); Chloride, Blood 109.0 mmol/L (98-108); Creatinine, Blood 1.21 mg/dL (0.60-1.20); Glucose, Blood 385.0 mg/dL (70-99); Potassium, Blood 4.1 mmol/L (3.5-5.5); Sodium, Blood 138.0 mmol/L (136-145)
--- NOTE | 2024-10-12 14:44 | NUR ---
Call to Dr. Kuhn regarding HR maintaining 30-40's per Digital Pre Press Operator. Order obtained for transfer to PCU; awaiting bed and will call to give report when bed is ready.
[2024-10-12 15:20] LABS: Anion Gap 9.0 mmol/L (3-11); Blood Urea Nitrogen 44.0 mg/dL (8-24); CO2, Blood 23.0 mmol/L (21-32); Calcium, Blood 8.7 mg/dL (8.5-10.1); Chloride, Blood 108.0 mmol/L (98-108); Creatinine, Blood 1.21 mg/dL (0.60-1.20); Glucose, Blood 367.0 mg/dL (70-99); Potassium, Blood 4.0 mmol/L (3.5-5.5); Sodium, Blood 136.0 mmol/L (136-145)
[2024-10-12 15:27] VITALS: BP 119/76
[2024-10-12 16:00] VITALS: BP 132/54
--- NOTE | 2024-10-12 18:20 | NUR ---
PCU Arrival / End of Shift Pt brought to PCU-18 by bed from medical floor rm 327. Pt [place]. A&O to self. Speech mumbled/garbled. Pt VSS. Spo2 > 92% on RA. Monitor showing SB, HR 40s-60s. Dinner CBG elevated. Humalog administered per emar & notified. w/ order for increase in lantus dose. Del Cid cath patent & draining dark yellow urine.
[2024-10-12 19:35] VITALS: BP 127/72
[2024-10-12] MEDS ORDERED: Insulin Glargine-Yfgn 100 Unit/mL 3 ML SYR SC SCH (21:00)
[2024-10-12 23:08] VITALS: BP 125/49
[2024-10-13 03:35] VITALS: BP 155/64
[2024-10-13 04:32] LABS: BASOPHILS ABSOLUTE AUTO 0.04 K/mm3 (0.00-0.23); BASOPHILS PERCENT AUTO 1 % (0-2); EOSINOPHILS ABSOLUTE AUTO 0.28 K/mm3 (0.00-0.68); EOSINOPHILS PERCENT AUTO 4 % (0-6); Hematocrit 28.1 % (37.0-53.0); Hemoglobin 9.0 g/dL (13.5-17.5); IMMATURE GRAN ABSOLUTE AUTO 0.03 K/mm3 (0.00-0.10); IMMATURE GRAN PERCENT AUTO 1 % (0-1); LYMPHOCYTES ABSOLUTE AUTO 0.55 K/mm3 (0.84-5.20); LYMPHOCYTES PERCENT AUTO 9 % (21-46); MONOCYTES ABSOLUTE AUTO 0.45 K/mm3 (0.16-1.47); MONOCYTES PERCENT AUTO 7 % (4-13); Mean Corpuscular HGB Conc 32.0 g/dL (31.5-36.5); Mean Corpuscular Volume 93 fL (80-100); NEUTROPHILS ABSOLUTE AUTO 5.05 K/mm3 (1.96-9.15); NEUTROPHILS PERCENT AUTO 79 % (41-73); NRBC ABSOLUTE 0.00 K/mm3 (0.00-0.02); NRBC Auto 0.0 /100 WBC (0.0-0.2); Platelet Count 286 K/mm3 (150-400); RDW Coefficient Variation 14.2 % (11.7-14.2); RDW Standard Deviation 48.8 fL (35.1-46.3)
[2024-10-13 04:49] LABS: Anion Gap 6.0 mmol/L (3-11); Blood Urea Nitrogen 40.0 mg/dL (8-24); CO2, Blood 26.0 mmol/L (21-32); Calcium, Blood 8.7 mg/dL (8.5-10.1); Chloride, Blood 110.0 mmol/L (98-108); Creatinine, Blood 1.18 mg/dL (0.60-1.20); Glucose, Blood 337.0 mg/dL (70-99); Potassium, Blood 4.2 mmol/L (3.5-5.5); Sodium, Blood 138.0 mmol/L (136-145)
--- NOTE | 2024-10-13 06:07 | NUR ---
SHIFT SUMMARY: PT A&OX1-[address], DATE, AND SITUATION. HARD OF HEARING. MUMBLED SPEECH. SINUS WHITNEY-SINUS RHYTHM 40S-60S. PT HAD 5 BEAT RUN OF VTACH, 6 BEAT RUN OF VTACH, AND 8 BEAT RUN OF SVT ON THREE SEPARATE OCCASIONS. PT REPORTS ASYMPTOMATIC AT TIME OF EVENTS. MAINTAINED >92% SPO2 ON RA. MUJICA IN PLACE AND DRAINING TO GRAVITY. MUJICA CARE COMPLETED. BEDREST WITH Q2 REPOSITIONING. DAILY WEIGHT COMPLETED. BED IS LOW AND LOCKED AND CALL LIGHT WITHIN REACH. BED ALARM IS ON. WILL CONTINUE PLAN OF CARE TILL REPORT GIVEN TO DAY NURSE.
[2024-10-13 07:53] VITALS: BP 137/61
[2024-10-13 11:33] VITALS: BP 136/71
[2024-10-13 16:58] VITALS: BP 137/62
[2024-10-13] MEDS ORDERED: Insulin Human Lispro 100 Units/ML 3ML Syringe SC SCH (17:50)
--- NOTE | 2024-10-13 17:58 | NUR ---
End of Shift Pt A&O to self only. Pt [place]. VSS. Spo2 > 92% on RA. Monitor showing SB-SR w/ PVCs, HR 50s-80s. Pt w/ 3 second run of SVT this evening. Pt denying awareness of event or symptoms. Pt then w/ 7 beat run of accelerated idioventricular. Pt laughing in response to nurse assessment, stating "oh it's very good!" Pt w/ unknown interpretation of nurse questions as pt not responding appropriately. Pt sitting upright, eating meal w/ assistance from FIELD PROFESSIONAL. CBG elevated. w/ new order to increase insulin sliding scale coverage & check/correct again in 2 hours. New orders in place.
[2024-10-13] MEDS ORDERED: Insulin Human Lispro 100 Units/ML 3ML Syringe SC ONE (19:40)
[2024-10-13 23:37] VITALS: BP 140/61
[2024-10-14] VITALS (11 sets, daily range): BP systolic 100–139; BP diastolic 52–70
[2024-10-14] MEDS ORDERED: Metoprolol Tartrate 1 MG/ML 5 ML VIAL IV PRN (01:10)
[2024-10-14] MEDS ORDERED: Diltiazem HCl 5 MG / ML 5ML Vial IV PRN (01:25)
[2024-10-14] MEDS ORDERED: Diltiazem HCl 5 MG / ML 5ML Vial IV ONE ×2 (02:00→05:00)
[2024-10-14 04:21] LABS: BASOPHILS ABSOLUTE AUTO 0.04 K/mm3 (0.00-0.23); BASOPHILS PERCENT AUTO 1 % (0-2); EOSINOPHILS ABSOLUTE AUTO 0.19 K/mm3 (0.00-0.68); EOSINOPHILS PERCENT AUTO 3 % (0-6); Hematocrit 25.3 % (37.0-53.0); Hemoglobin 8.1 g/dL (13.5-17.5); IMMATURE GRAN ABSOLUTE AUTO 0.03 K/mm3 (0.00-0.10); IMMATURE GRAN PERCENT AUTO 1 % (0-1); LYMPHOCYTES ABSOLUTE AUTO 0.46 K/mm3 (0.84-5.20); LYMPHOCYTES PERCENT AUTO 8 % (21-46); MONOCYTES ABSOLUTE AUTO 0.50 K/mm3 (0.16-1.47); MONOCYTES PERCENT AUTO 8 % (4-13); Mean Corpuscular HGB Conc 32.0 g/dL (31.5-36.5); Mean Corpuscular Volume 94 fL (80-100); NEUTROPHILS ABSOLUTE AUTO 4.91 K/mm3 (1.96-9.15); NEUTROPHILS PERCENT AUTO 80 % (41-73); NRBC ABSOLUTE 0.00 K/mm3 (0.00-0.02); NRBC Auto 0.0 /100 WBC (0.0-0.2); Platelet Count 268 K/mm3 (150-400); RDW Coefficient Variation 14.6 % (11.7-14.2); RDW Standard Deviation 50.0 fL (35.1-46.3)
--- NOTE | 2024-10-14 04:25 | NUR ---
AT AROUND 0100 PT CONVERTED TO AFIB WITH RVR. PT ASYMPTOMATIC, SBP STABLE, DENIED CP/PRESSURE. EKG COMPLETED, IN CHART. RESIDENT CALLED AND NOTIFIED. ORDER PLACED FOR ONE TIME IV PUSH OF 10MG CARDIZEM. PT HR STILL IN THE THE 140'S 30 MINUTES FOLLOWING IV PUSH. RESIDENT NOTIFIED ANOTHER ORDER FRO 10MG CARDIZEM ORDERED. PT RECIEVED TWO IV PUSHES OF 10MG CARDIZEM. PT HR AVERAGING IN THE 130'S AT THIS TIME, WITH OCASSIONAL RATES IN THE 150'S-160'S. RESIDENT NOTIFIED, NO NEW ORDERS AT THIS TIME.
[2024-10-14 04:41] LABS: Anion Gap 7.0 mmol/L (3-11); Blood Urea Nitrogen 35.0 mg/dL (8-24); CO2, Blood 23.0 mmol/L (21-32); Calcium, Blood 8.4 mg/dL (8.5-10.1); Chloride, Blood 112.0 mmol/L (98-108); Creatinine, Blood 1.01 mg/dL (0.60-1.20); Glucose, Blood 326.0 mg/dL (70-99); Potassium, Blood 4.1 mmol/L (3.5-5.5); Sodium, Blood 138.0 mmol/L (136-145)
--- NOTE | 2024-10-14 06:00 | NUR ---
SHIFT SUMMARY PT ALERT, ORIENTED TO SELF ONLY. HE IS ABLE TO ANSWER SOME YES/NO QUESTIONS WITH WHAT SEEMS TO BE APPROPRIATE. HE IS CONFUSED AND WILL MUMMBLE WORDS THAT DONT MAKE SENSE TO THE QUESTIONS ASKED. HE IS [place]. PT IN SR IN THE 70'S AST START OF SHIFT AROUND 0100 PT CONVERTED TO AFIB W/ RVR WITHA HR SUSTAINING IN THE 170'S. PT DENIED ANY CP/PRESSURE, SBP STABLE. PROVIDER NOTIFIED, MEDICATED PER EMAR. PT HR T/O SHIFT CONTINUED TO AVERAGE IN THE 130'S, OCASSIONALLY REACHING THE 160'S. PT RECIEVED A TOTAL OF 3 10MG CARDIZEM PUSHES, HR STILL IN THE 130'S. PT REMAINS ASYMPTOMATIC, RESIDENT NOTIFIED. PT HAS MUJICA IN PLACE, DRAINING TO GRAVITY. PT RESTING IN BED AT THIS TIME. WILL MONITOR PT AND REPORT TO ONCOMING RN.
[2024-10-14] MEDS ORDERED: Insulin Human Lispro 100 Units/ML 3ML Syringe SC SCH (07:30)
--- NOTE | 2024-10-14 14:22 | NUR ---
PT ALERT AND ORIENTED TO SELF ONLY. PLACED CALL TO BOTH OF PT'S DAUGHTERS, LEFT MESSAGES, REQUESTING RETURN CALL.
--- NOTE | 2024-10-14 14:59 | NUR ---
SPOKE WITH PT'S DAUGHTER ASTON, SHE REQUESTS WE CHANGE PT'S STATUS TO COMFORT CARE. SHE REPORTS HIS QUALITY OF LIFE HAS SEVERELY DECLINED OVER THE PAST MONTH, SPECIFICALLY RELATED TO RECURRING INFECTIONS AND MENTATION CHANGES. PT TO BE PLACED ON COMFORT CARE PER FAMILY REQUEST, PT UNABLE TO MAKE HIS NEEDS OR WANTS KNOWN.
[2024-10-14] MEDS ORDERED: Morphine Sulfate 20 MG/1ML 1 ML Oral Syringe SL PRN (15:10)
--- NOTE | 2024-10-14 18:31 | NUR ---
Shift Summary Pt alert, oriented x1; confused but cooperative with care. No s/sx of distress noted. When asked pt denies pain, chest pain/pressure, sob, nausea, dizziness and numb/tingling. Tele afib 130-150 this am, 2 doses of iv dig and 1 dose of po metorpolol, 90-110's, 120-130 with activity. Bp soft. Edema noted t/o. Spo2 >90% on ra. Abd soft, nontender, +bt. Other vss. Pt transitioned to comfort care, this afternoon, pt resting in bed, sleeping, wakes with verbal stimuli. No distress noted. Orders to continue BP, HR, blood glucose with insulin coverage. Daughter Diane to be notified. Call light within reach.
[2024-10-14] MEDS ORDERED: Insulin Glargine-Yfgn 100 Unit/mL 3 ML SYR SC SCH (21:00)
--- NOTE | 2024-10-14 23:12 | NUR ---
APPROX AROUND 2048 PT CONVERTED FROM AFIB IN THE 90'S-100'S TO SINS WHITNEY IN THE 40'S-50'S. PT HAD A PAUSE THEN CONVERTED TO SB. PT REPORTS FEELING "HIS HEART STOP" PRIOR TO CONVERSION. PT NOW SITTING IN THE 50'S. DENIES ANY CP/PRESSURE, NUMB/TINGLING. SBP STABLE
[2024-10-15] VITALS (7 sets, daily range): BP systolic 115–146; BP diastolic 49–92
--- NOTE | 2024-10-15 05:04 | NUR ---
SHIFT SUMMARY PT ALERT, ORIENTED TO SELF. HE IS ABLE TO ANSWER SOME QUESTIONS WITH APPROPRIATE ANSWERS BUT AT OTHER TIMES WILL MUMMBLE AND NOT MAKE SENSE. HE IS [place]. HE IS CONFUSED BUT PLEASENT AND COOPERATIVE TO CARE. PT COMFORT CARE BUT HAS ORDERS TO CONTINUE TO CHECK HEART RATE/BLOOD PRESSURE, TELEMETRY STILL IN PLACE FOR THIS. PT IN AFIB IN THE 70'S AT STAT OF SHIFT BUT CONVERTED TO INUS WHITNEY IN THE 40'S-50;S AROUND 2048. PT REMAINED IN SB UP UNTIL APPROX 0450 AND CONVERTED BACK IN TO AFIB RVR, HR IN THE 110'S-140'S. PT ZHEN ANY CP/PRESSURE, NUMB/TINLING, SBP STABLE. SP02 >92% ON RA. PT HAS CHRONIC MUJICA IN PLACE. DRAINING YELLOW URINE. PT RESTING IN BED AT THIS TIME. CALL [facility] IN REACH. WILL MONITOR PT AND REPORT TO ONCOMING RN.
--- NOTE | 2024-10-15 16:46 | NUR ---
PT IS ALERT TO SELF ONLY, NOT ALWAYS ABLE TO MAKE NEEDS KNOWN. HE IS ON RA W/O2 SATS > 92%. MUJICA IN PLACE DRAINING YELLOW URINE TO GRAVITY. HE IS ON BEDREST AND IS A x2 ASSIST FOR TURNS. NO NEEDS OR CONCERNS NOTED @ THIS TIME. BED IN LOW POSITION, CALL LIGHT AND PERSONAL BELONGINGS IN REACH.
--- NOTE | 2024-10-15 20:21 | NUR ---
ASSUMPTION OF CARE PT ALERT, ORIETNED TO SELF. PT ABLE TO HAVE APPROPRIATE CONVERSATION AT TIMES AND OTHER TIMES CONFUSED AND MUMMBLES WORDS THAT DONT MAKE SENSE. PT COMFORT CARE. BP STABLE. HR IN THE 80'S WITH NBP. HE MUMMBLE NO WHEN ASKED ABOUT CP/PRESSURE. HE IS ON RA, SP02 >90%. CHRONIC MUJICA IN PLACE, DRAINING TO GRAVITY. PT HAS SWELLING BILAT UPPER EXTREMITIES AND BILAT HANDS. COMFORT CARE ORDER SET IN [place], SEE EMAR. PT RESTING COMFORTABLY IN BED AT THIS TIME, HE DOES NOT APPEAR TO BE IN ANY DISTRESS. WILL MONITOR PT.
--- NOTE | 2024-10-15 21:35 | NUR ---
TRANSFER SUMMARY PT MEDICAL STUATUS/COMFORT CARE. ROOM AVAILABLE UPSTAIRS FOR PT. REPORT GIVEN TO CORINE ABURTO. PT TRANSFERED TO MEDICAL FLOOR VIA BED WITH THIS RN AND PCT AROUND 2109.
[2024-10-16 04:38] VITALS: BP 184/78
[2024-10-16 04:40] VITALS: BP 184/78
--- NOTE | 2024-10-16 06:16 | NUR ---
SHIFT SUMMARY PT TRANSFERRED FROM PCU AT 2130. HANDOFF REPORT RECEIVED FROM KAYLA. PT ALERT, ORIENTED TO SELF. ELEVATED SBP, PRN HYDRALAZINE GIVEN FOR >180. NO DYSPNEA NOTED. PT DENIED PAIN X 1, FLACC SCALE ALSO USED FOR ASSESSMENT OF MINIMAL PAIN. Q2 TURNS COMPLETED. SCROTAL AND BUE EDEMA NOTED. MUJICA PATENT AND DRAINING TO GRAVITY. MINIMAL ORAL INTAKE, 60 ML WATER GIVEN.
[2024-10-16 07:48] VITALS: BP 184/74
--- NOTE | 2024-10-16 16:34 | NUR ---
SPOKE WITH PATIENTS DAUGHTER FOR UPDATES ON PATIENT CONDITION. PATIENTS DAUGHTER REQUESTED THAT PATIENT REMAIN IN HOSPITAL ON HOSPICE INSTEAD OF GOING BACK TO [facility]. SPOKE WITH VOCAL TEACHER AND LET HER KNOW WHAT DAUGHTER WAS ASKING AND THIS RN CALLED PATIENTS DAUGHTER BACK TO LET HER KNOW PATIENT IS MEDICALLY CLEARED TO TRANSFER FOR NET LEVEL OF CARE. DAUGHTER UPSET AND WANTS TO CALL VOCAL TEACHER IN THE AM TO DISCUSS OPTIONS. DAUGHTER WOULD LIKE SOME TIME TO LOOK FOR A [facility]IDENT[facility] FOR PATIENT TO TRANSFER TOO.
--- NOTE | 2024-10-17 05:31 | NUR ---
SHIFT SUMMARY; PATIENT SLEPT IN LONG INTERVALS, DID NOT REQUIRE ANY MEDS THIS TIME. REPOSIONED SLIGHTLY, TO NOT CAUSE PAIN.NO FAMILY IN TONIGHT.
[2024-10-17 08:05] VITALS: BP 164/94
[2024-10-17 15:53] VITALS: BP 132/61
--- NOTE | 2024-10-17 16:43 | NUR ---
PATIENT ON BED REST, AROUSES WITH NAME BEING SAID, ANSWERS QUESTIONS APPROPRIATLEY WITH SOME SLURRING BUT PATIENT WILL REPEAT HIMSELF IF YOU DON'T UNDERSTAND WHAT IS BEING SAID. PATIENT HAD SEVERAL VISITORS AND PHONE CALLS TODAY. PLAN IS TO KEEP TRYING TO FIND PLACEMENT. PATIENT REPOSITIONED EVERY 2 HOURS AND CHECKED ON IN BETWEEN.
[2024-10-17 19:45] VITALS: BP 138/62
[2024-10-18 05:25] VITALS: BP 150/72
--- NOTE | 2024-10-18 05:48 | NUR ---
COMFORT CARE SHIFT SUMMARY PATIENT IS ALERT AND ORIENTED TO SELF. PATIENT HAS HAD NO ACUTE EVENTS THIS SHIFT. PATIENT HAS NOT NEEDED MEDICATING FOR ANXIETY, PAIN, SOB OR NAUSEA THIS SHIFT. PATIENT HAS BEEN TURNED Q2. PATIENT HAS BEEN RESTING MOST OF SHIFT. BED IN LOCKED AND LOWEST POSITION. CALL LIGHT IN PLACE.
[2024-10-18 07:53] VITALS: BP 171/69
[2024-10-18 11:25] VITALS: BP 152/77
--- NOTE | 2024-10-18 16:22 | NUR ---
PT NO LONGER RESPONSIVE; DR. NOEL ORDERS STOPPING BLOOD SUGAR CHECKS AND BLOOD PRESSURE CHECKS.
[2024-10-18 19:15] VITALS: BP 144/74
--- NOTE | 2024-10-18 19:36 | NUR ---
PT NO LONGER OPENING EYES TO PAINFUL STIMULI, GRUNTING AND GRIMICING WITH PAIN AND REPOSITIONING. TREATED PAIN PER EMAR. PER PALLIATIVE CARE RN AND DR. NOEL, D/C CBG AND VS CHECKS. PT REPOSITIONED Q2HRS, STAFF PREFORMING ORAL CARE TOLORATED. MOUTH MOISTURIZER REAPPLIED Q1-2 HRS. PLAN TO D/C TO [facility] TOMORROW ON HOSPICE.
--- NOTE | 2024-10-19 05:52 | NUR ---
COMFORT CARE SHIFT SUMMARY PATIENT HAS HAD NO ACUTE EVENTS THIS SHIFT. PATIENT HAS BEEN RESTING COMFORTABLY MOST OF SHIFT. PATIENT HAS HAD TWO BM THIS SHIFT. PATIENT HAS BEEN MEDICATED FOR PAIN ONCE THIS SHIFT. BED IN LOCKED AND LOWEST POSITION.
[2024-10-19] MEDS ORDERED: ACET120S PR (10:37)
[2024-10-19] MEDS ORDERED: LORA.5 PO (10:38)
[2024-10-19] MEDS ORDERED: MORP20L SL (10:39)
--- NOTE | 2024-10-19 11:20 | NUR ---
pt discharged to foster home on hospice. pt treated for pain just prior to transport. attempted to give report to foster home. no answer, left message for call back. pt much more alert today than yesterday. able to eat pudding and sip on water.
== END 2024-10-19 11:00 | disposition hospice, home (50) | DRG 698 ==
LOC: ER 15:20 → PCU 17:57 → MEDS 17:57 → PCU 20:39 → MEDS 10-11 18:35 → PCU 10-12 15:52 → MEDS 10-15 21:30
PROVIDERS: Emergency Medicine; Internal Medicine; Student in an Organized Health Care Education/Training Program; ADMIT Internal Medicine
PROC: 3E03329 Introduction of Other Anti-infective into Peripheral Vein, Percutaneous Approach (ICD-10-PCS; principal; 2024-10-09)
PROC: 0T2BX0Z Change Drainage Device in Bladder, External Approach (ICD-10-PCS; 2024-10-09)
DX: T83.511A Infection and inflammatory reaction due to indwelling urethral catheter, initial encounter (principal); A41.9 Sepsis, unspecified organism; E10.10 Type 1 diabetes mellitus with ketoacidosis without coma; G92.8 Other toxic encephalopathy; R65.20 Severe sepsis without septic shock; E78.5 Hyperlipidemia, unspecified; F32.A Depression, unspecified; Z66 Do not resuscitate; Z51.5 Encounter for palliative care; N39.0 Urinary tract infection, site not specified; I25.10 Atherosclerotic heart disease of native coronary artery without angina pectoris; I25.2 Old myocardial infarction; N40.0 Benign prostatic hyperplasia without lower urinary tract symptoms; I12.9 Hypertensive chronic kidney disease with stage 1 through stage 4 chronic kidney disease, or unspecified chronic kidney disease; N18.30 Chronic kidney disease, stage 3 unspecified; E10.42 Type 1 diabetes mellitus with diabetic polyneuropathy; I48.0 Paroxysmal atrial fibrillation; E10.22 Type 1 diabetes mellitus with diabetic chronic kidney disease; D63.1 Anemia in chronic kidney disease; F03.90 Unspecified dementia, unspecified severity, without behavioral disturbance, psychotic disturbance, mood disturbance, and anxiety; R00.1 Bradycardia, unspecified; Z88.8 Allergy status to other drugs, medicaments and biological substances; Z79.4 Long term (current) use of insulin; Z79.899 Other long term (current) drug therapy; Z86.73 Personal history of transient ischemic attack (TIA), and cerebral infarction without residual deficits; Z98.890 Other specified postprocedural states; Z85.51 Personal history of malignant neoplasm of bladder; Y84.6 Urinary catheterization as the cause of abnormal reaction of the patient, or of later complication, without mention of misadventure at the time of the procedure
CPT/HCPCS: 36415; 51702; 71045; 80048; 80053; 80202; 81001; 82010; 82947; 83605; 83735; 83880; 84100; 85025; 86850; 86900; 86901; 87040; 87077; 87086; 87186; 87637; 93005; 93010; 93971; 96365-59; 96375; 97110; 97162; 99285-25; A9270; J0360; J0692; J1160; J1650; J1815; J2543; J3373; J7030; J7050; P9047